=== PATIENT | female | born 1980 | race Caucasian/White ===

== ENCOUNTER 2017-12-03 11:51 | Inpatient (IN) | payer BC ==
--- OUTSIDE RECORDS SUMMARY | 2017-12-03 11:54 | XMS REPORT | Clinical Summary ---
:1980 Author Organization [facility] Address [address] [place] [address] Care Team Providers Name Role Phone Cherelle Morton MD Primary Care Provider Allergies No Known Allergies Current Medications Prescription Sig. Disp. Refills Start Date End Date Status mesalamine (PENTASA) Take 500 mg by Active 500 MG CR capsule mouth 4 (four) times a day. Take 2 capsules twice daily promethazine Take 25 mg by Active (PHENERGAN) 25 MG mouth every 6 tablet (six) hours as needed for nausea or vomiting. esomeprazole Take 40 mg by Active (NexIUM) 40 MG mouth daily capsule before breakfast. sertraline (ZOLOFT) Take 50 mg by Active 50 MG tablet mouth daily. ranitidine (ZANTAC) Take 150 mg by Active 150 MG tablet mouth as needed for heartburn. acetaminophen Take 325 mg by Active (TYLENOL) 325 MG mouth as tablet needed for fever. promethazine TAKE 1 30 tablet 0 10/23/2017 Active (PHENERGAN) 25 MG TABLET(25 MG) tabletIndications: BY MOUTH EVERY Nausea and vomiting, 6 HOURS intractability of NEEDED FOR vomiting not NAUSEA OR specified, VOMITING unspecified vomiting type sodium,potassium,mag Dispense 1 354 mL 0 06/29/2017 Discontinued sulfates (SUPREP kit. Take as 8 BOWEL PREP KIT) directed. 17.5-3.13-1.6 gram recon soln promethazine Take 1 tablet 30 tablet 0 07/13/2017 Discontinued (PHENERGAN) 25 MG (25 mg total) 8 tabletIndications: by mouth every Nausea and vomiting, 6 (six) hours intractability of as needed for vomiting not nausea or specified, vomiting for unspecified vomiting up to 30 days. type predniSONE Take 1 tablet 60 tablet 1 08/14/2017 (DELTASONE) 20 mg (20 mg total) 8 tabletIndications: by mouth 2 Crohn's disease of (two) times a colon with day for 30 complication, Nausea days. and vomiting, intractability of vomiting not specified, unspecified vomiting type Active Problems Not on file Encounters Date Type Specialty Care Team Description 12/02/2017 Telephone Gastroenterology Valeria Beard, MECHANICAL DESIGN ENGINEER [employer] 11/10/2017 Telephone Gastroenterology Maria Elena Gamez MD 10/26/2017 Telephone Gastroenterology Valeria Beard, MECHANICAL DESIGN [employer] 10/22/2017 Refill Gastroenterology Maria Elena Gamez, Nausea and vomiting, intractability of vomiting not specified, unspecified vomiting type 09/22/2017 Telephone Gastroenterology Valeria Beard, MECHANICAL DESIGN [employer] 09/18/2017 Telephone Gastroenterology Valeria Beard, MECHANICAL DESIGN [employer] 09/17/2017 Telephone Gastroenterology Mustapha Bearda, MECHANICAL DESIGN ENG[employer] 09/15/2017 Telephone Gastroenterology Mustapha Bearda, MECHANICAL DESIGN [employer] 09/09/2017 Telephone Gastroenterology Mustapha Bearda, MECHANICAL DESIGN [employer] 09/07/2017 Telephone Gastroenterology Mustapha Bearda, MECHANICAL DESIGN [employer] 08/24/2017 Telephone Gastroenterology Halle Beardnda, MECHANICAL DESIGN ENG[employer] 08/14/2017 Telephone Gastroenterology Halle Beardnda, MECHANICAL DESIGN ENG[employer] 08/13/2017 Telephone Gastroenterology Lucy Elizalde, Crohn's disease of colon with complication (Primary Dx); RN Nausea and vomiting, intractability of vomiting not specified, unspecified vomiting type 08/11/2017 Telephone Gastroenterology Maria Elena Gamez MD 07/28/2017 Telephone Gastroenterology Mustapha Bearda, MECHANICAL DESIGN [employer] 07/20/2017 Telephone Gastroenterology Mustapha Bearda, MECHANICAL DESIGN [employer] 07/14/2017 Telephone Gastroenterology Mustapha Bearda, MECHANICAL DESIGN [employer] 07/13/2017 Orders Only Gastroenterology Marcie Mendenhall, Nausea and vomiting, DIEGO intractability of vomiting not specified, unspecified vomiting type (Primary Dx) 07/09/2017 Telephone Maria Elena Rosario MD 07/07/2017 Telephone GastroenterMaria Elena Soriano, Hypercalcemia ( Primary Dx); Crohn's disease of small intestine without complication 07/07/2017 Documentation Maria Elena Rosario, Outside GI records 07/03/2017 Telephone Maria Elena Rosario MD 07/01/2017 Lab Lab Maria Elena Gamez MD 07/01/2017 Documentation Maria Elena Rosario, EGD; Colonoscopy 06/30/2017 Telephone Maria Elena Rosario MD 06/29/2017 Office Visit Maria Elena Rosario, Diarrhea, unspecified type (Primary Dx); Right lower quadrant abdominal pain; Nausea and vomiting, intractability of vomiting not specified, unspecified vomiting type 06/29/2017 Orders Only Gastroenterology Marcie Mendenhall MA 06/29/2017 Telephone Gastroenterology Marcie Mendenhall MA after 12/02/2016 Family History Medical History Relation Name Comments Crohn's disease Maternal Aunt Breast cancer Mother Ulcerative colitis Mother Ulcerative colitis Sister Relation Name Status Comments Father bladder cancer Maternal Aunt Mother Sister Social History Tobacco Use Types Packs/Day Years Used Date Never Smoker Smokeless Tobacco: Never Used Alcohol Use Drinks/Week oz/Week Comments No Sex Assigned at Date Recorded Not on file Last Filed Vital Signs Vital Sign Reading Time Taken Blood Pressure 129/82 06/29/2017 1:45 PM DRAWING OPERATOR Pulse 62 06/29/2017 1:45 PM DRAWING OPERATOR Temperature 37.1 C (98.8 F) 06/29/2017 1:45 PM DRAWING OPERATOR Respiratory Rate - - Oxygen Saturation - - Inhaled Oxygen Concentration - - Weight 86.5 kg (190 lb 9.6 oz) 06/29/2017 1:45 PM DRAWING OPERATOR Height 160 cm (5' 3") 06/29/2017 1:45 PM DRAWING OPERATOR Body Mass Index 33.76 06/29/2017 1:45 PM DRAWING OPERATOR Plan of Treatment Date Type Specialty Care Team Description 12/16/2017 Office Visit Maria Elena Rosario MD [address] [facility] [address] [place] [address] Health Maintenance Due Date Last Done Comments CERVICAL CANCER SCREENING 08/28/1999 INFLUENZA VACCINE 12/02/2017 Procedures Procedure Name Priority Date/Time Associated Diagnosis Comments URINALYSIS, COMPLETE, Routine 09/07/2017 2:52 Crohn's disease of Results for this WITH REFLEX TO PM CDT colon with procedure are in CULTURE complication the results Nausea and vomiting, section. intractability of vomiting not specified, unspecified vomiting type C-REACTIVE PROTEIN Routine 09/07/2017 2:52 Crohn's disease of Results for this PM CDT colon with procedure are in complication the results Nausea and vomiting, section. intractability of vomiting not specified, unspecified vomiting type SEDIMENTATION RATE Routine 09/07/2017 2:52 Crohn's disease of Results for this PM CDT colon with procedure are in complication the results Nausea and vomiting, section. intractability of vomiting not specified, unspecified vomiting type COMPREHENSIVE Routine 09/07/2017 2:52 Crohn's disease of Results for this METABOLIC PANEL PM CDT colon with procedure are in complication the results Nausea and vomiting, section. intractability of vomiting not specified, unspecified vomiting type CBC WITH PLATELET AND Routine 09/07/2017 2:52 Crohn's disease of Results for this DIFFERENTIAL PM CDT colon with procedure are in complication the results Nausea and vomiting, section. intractability of vomiting not specified, unspecified vomiting type REFLEXIVE URINE Routine 09/07/2017 2:52 Results for this CULTURE PM CDT procedure are in the results section. PARATHYROID HORMONE Routine 07/10/2017 1:59 Hypercalcemia Results for this PM DRAWING OPERATOR Crohn's disease of procedure are in small intestine the results without complication section. IONIZED CALCIUM Routine 07/10/2017 1:59 Hypercalcemia Results for this PM DRAWING OPERATOR Crohn's disease of procedure are in small intestine the results without complication section. CALCIUM LEVEL Routine 07/10/2017 1:59 Hypercalcemia Results for this PM DRAWING OPERATOR Crohn's disease of procedure are in small intestine the results without complication section. TB GOLD QUANTIFERON Routine 07/10/2017 1:59 Hypercalcemia Results for this PM DRAWING OPERATOR Crohn's disease of procedure are in small intestine the results without complication section. SURGICAL PATHOLOGY Routine 07/01/2017 3:43 Results for this REQUEST PM DRAWING OPERATOR procedure are in the results section. after 12/02/2016 Results URINALYSIS, COMPLETE, WITH REFLEX TO CULTURE (09/07/2017 2:52 PM) Color, UA YELLOW YELLOW [facility] Appearance CLEAR CLEAR [facility] Specific gravity, urine 1.018 1.001 - 1.035 [facility] pH, urine 7.0 5.0 - 8.0 [facility] Glucose, urine NEGATIVE NEGATIVE [facility] Bilirubin, UA NEGATIVE NEGATIVE [facility] Ketones, UA NEGATIVE NEGATIVE [facility] Occult blood, urine 1+ (A) NEGATIVE [facility] Protein, UA NEGATIVE NEGATIVE [facility] Nitrite, UA NEGATIVE NEGATIVE [facility] Leukocyte esterase, UA NEGATIVE NEGATIVE [facility] WBC, UA 0-5 < OR=5 /HPF [facility] RBC, UA 0-2 < OR=2 /HPF [facility] Squamous epithelial cells, UA 10-20 (A) < OR=5 /HPF [facility] Bacteria, UA FEW (A) NONE SEEN /HPF [facility] Hyaline casts, UA NONE SEEN NONE SEEN /LPF [facility] Narrative Performed At FASTING:NO [facility] FASTING: NO Resulting Agency Comment Performing Organization Information: Site ID: [facility] Name: [facility] Address: [address] [place] [phone] Director: Sofia Woodard Performing Organization Address [facility] Phone Number [facility] [address] [address] Reflexive urine culture (09/07/2017 2:52 PM) Reflex NO CULTURE INDICATED [facility] Narrative Performed At FASTING:NO [facility] FASTING: NO Resulting Agency Comment Performing Organization Information: Site ID: [facility] Name: [facility] Address: [address] [place] [phone] Director: Sofia Woodard Performing Organization Address City/[facility] [place] [address] Sedimentation rate (09/07/2017 2:52 PM) Sedimentation rate 2 < OR=20 mm/h [facility] Specimen Blood Narrative Performed At FASTING:NO [facility] FASTING: NO Resulting Agency Comment Performing Organization Information: Site ID: [facility] Name: [facility] Address: [address] [place] [phone] Director: Sofia Woodard Performing Organization Address [facility]/Zipcode Phone Number [facility] [address] [phone] CBC with platelet and differential (09/07/2017 2:52 PM) WBC 5.6 3.8 - 10.8 Thousand/uL [facility] RBC 4.80 3.80 - 5.10 Million/uL [facility] HGB 12.3 11.7 - 15.5 g/dL [facility] HCT 38.8 35.0 - 45.0 % [facility] MCV 80.8 80.0 - 100.0 fL [facility] MCH 25.6 (L) 27.0 - 33.0 pg [facility] MCHC 31.7 (L) 32.0 - 36.0 g/dL [facility] RDW 17.7 (H) 11.0 - 15.0 % [facility] Platelet count 363 140 - 400 Thousand/uL [facility] MPV 10.5 7.5 - 12.5 fL [facility] Neutrophils, absolute 4,290 1,500 - 7,800 cells/uL [facility] Lymphocytes, absolute 1,114 850 - 3,900 cells/uL [facility] Monocytes, absolute 162 (L) 200 - 950 cells/uL [facility] Eosinophils, absolute 11 (L) 15 - 500 cells/uL [facility] Basophils, absolute 22 0 - 200 cells/uL [facility] Neutrophils 76.6 % [facility] Lymphocytes 19.9 % [facility] Monocytes 2.9 % [facility] Eosinophils 0.2 % [facility] Basophils + RC 0.4 % [facility] Specimen Blood Narrative Performed At FASTING:NO [facility] FASTING: NO Resulting Agency Comment Performing Organization Information: Site ID: [id number] Name: [facility] Address: [address] [place] [phone] Director: Sofia Woodard Performing Organization Address City/State/Zipcode Phone Number [facility] [address] [address] C-reactive protein (09/07/2017 2:52 PM) CRP 6.5 <8.0 mg/L [facility] Specimen Blood Narrative Performed At FASTING:NO [facility] FASTING: NO Resulting Agency Comment Performing Organization Information: Site ID: [id number] Name: [facility] Address: [address] [place] [phone] Director: Sofia Woodard Performing Organization Address City/[facility]/Zipcode Phone Number [facility] [address] [address] Comprehensive metabolic panel (09/07/2017 2:52 PM) Glucose 124 65 - 139 mg/dL [facility] [employer] Comment: [facility] Non-fasting reference interval BUN, whole blood 9 7 - 25 mg/dL [facility] Creatinine 0.77 0.50 - 1.10 mg/dL [facility] EGFR Non-Afr. Malawian 97 > OR=60 [facility] mL/min/1.73m2 [facility] EGFR 113 > OR=60 [facility] mL/min/1.73m2 [facility] BUN/creatinine ratio NOT APPLICABLE 6 - 22 (calc) [facility] Sodium 136 135 - 146 mmol/L [facility] Potassium 4.5 3.5 - 5.3 mmol/L [facility] Chloride 108 98 - 110 mmol/L [facility] CO2 24 20 - 31 mmol/L [facility] Calcium 10.2 8.6 - 10.2 mg/dL [facility] Protein 6.9 6.1 - 8.1 g/dL [facility] Albumin, S 4.1 3.6 - 5.1 g/dL [facility] Globulin, total 2.8 1.9 - 3.7 g/dL [facility] (calc) [facility] Albumin/globulin ratio 1.5 1.0 - 2.5 (calc) [facility] Total bilirubin 0.6 0.2 - 1.2 mg/dL [facility] Alkaline phosphatase 47 33 - 115 U/L [facility] AST 13 10 - 30 U/L [facility] ALT 16 6 - 29 U/L [facility] Specimen Blood Narrative Performed At FASTING:NO [facility] FASTING: NO Resulting Agency Comment Performing Organization Information: Site ID: [id number] Name: [facility] Address: [address] [place] [phone] Director: Sofia Woodard Performing Organization Address City/[facility]/Zipcode Phone Number [facility] [address] [address] TB GOLD Quantiferon (07/10/2017 1:59 PM) Quantiferon TB gold NEGATIVE NEGATIVE [facility] Comment: [facility] Negative test result. M. tuberculosis complex infection unlikely. Quantiferon NIL value 0.02 IU/mL [facility] Quantiferon mitogen NIL 7.70 IU/mL [facility] value [facility] Quantiferon TB NIL value 0.00 IU/mL [facility] Comment: [facility] The Nil tube value is used to determine if the patient has a preexisting immune response which could cause a false-positive reading on the test. In order for a test to be valid, the Nil tube must have a value of less than or equal to 8.0 IU/mL. The mitogen control tube is used to assure the patient has a healthy immune status and also serves as a control for correct blood handling and incubation. It is used to detect false-negative readings. The mitogen tube must have a gamma interferon value of greater than or equal to 0.5 IU/mL higher than the value of the Nil tube. The TB antigen tube is coated with the M. tuberculosis specific antigens. For a test to be considered positive, the TB antigen tube value minus the Nil tube value must be greater than or equal to 0.35 IU/mL. For additional information, please refer to http://education.[employer]/faq/QFT (This link is being provided for informational/ educational purposes only.) Specimen Blood Narrative Performed At FASTING:NO [facility] FASTING: NO Resulting Agency Comment Performing Organization Information: Site ID: [id number] Name: [facility] Address: [address] [place] [phone] Director: Sofia Woodard MD Performing Organization Address City/State/Zipcode [place] [address] Parathyroid hormone (07/10/2017 1:59 PM) PTH 231 (H) 14 - 64 pg/mL [facility] [employer]ARRY Comment: II Interpretive GuideIntact PTH Calcium ------- Normal ParathyroidNormal Normal HypoparathyroidismLow or Low NormalLow Hyperparathyroidism PrimaryNormal or High High SecondaryHigh Normal or Low Tertiary High High Non-Parathyroid HypercalcemiaLow or Low NormalHigh Specimen Blood Narrative Performed At FASTING:NO [facility] FASTING: NO Resulting Agency Comment Performing Organization Information: Site ID: [id number]: [facility] Address: [address] [place] [phone] Director: Dr. Melo Carl Performing Organization Address City/[facility] Phone Number [facility] [address] Ionized calcium (07/10/2017 1:59 PM) Ionized calcium 5.6 4.8 - 5.6 mg/dL [facility] Specimen Blood Narrative Performed At FASTING:NO [facility] FASTING: NO Resulting Agency Comment Performing Organization Information: Site ID: [id number] Name: [facility] Address: [address] [place] [phone] Director: Dr. Melo Carl Performing Organization Address [facility] Phone Number [facility] [address] Calcium level (07/10/2017 1:59 PM) Calcium 10.0 8.6 - 10.2 mg/dL [facility] Specimen Blood Narrative Performed At FASTING:NO [facility] FASTING: NO Resulting Agency Comment Performing Organization Information: Site ID: [id number] Name: [facility] Address: [address] [place] [phone] Director: Sofia Woodard MD Performing Organization Address [facility] Phone Number [facility] [address] [address] Surgical pathology request (07/01/2017 3:43 PM) [facility] DEPARTMENT OF PATHOLOGY AND GENOMIC MEDICINE Surgical pathology report See link below for PDF [facility] DEPARTMENT OF Lab Report PATHOLOGY AND GENOMIC MEDICINE Result status This is Final Report to [facility] DEPARTMENT OF [id number] PATHOLOGY AND GENOMIC MEDICINE Performing Organization Address City/State/[facility] Center[facility] Phone Number [facility] DEPARTMENT OF PATHOLOGY AND [address] [place] [address] GENOMIC MEDICINE after 12/02/2016 Insurance Payer Benefit Plan / Group Subscriber ID Type Phone Address BCBS BCBS OUT OF STATE xxxxxxxxxxxx PPO Home: [address] [phone] [address]
--- OUTSIDE RECORDS SUMMARY | 2017-12-03 11:54 | XMS REPORT | Clinical Summary ---
:1980 Author Organization [facility] Address [address] [place] [address] Phone Care Team Providers Name Role Phone Unavailable Primary Care Provider Unavailable Allergies No Known Allergies Current Medications Prescription Sig. Disp. Refills Start Date End Date Status ustekinumab (STELARA) Inject 90 mg Active 90 mg/mL Syrg subcutaneously. sertraline (ZOLOFT) Take 50 mg by Active 50 MG tablet mouth daily. promethazine Take 25 mg by Active (PHENERGAN) 25 MG mouth every 6 tablet (six) hours as needed for Nausea. SUMAtriptan (IMITREX) Take 100 mg by Active 100 MG tablet mouth once as needed for Headaches. topiramate (TOPAMAX) Take 25 mg by Active 25 MG tablet mouth daily. ALPRAZolam (XANAX) Take 0.25 mg by Active 0.25 MG tablet mouth every night as needed for Anxiety. levonorgestrel 1 each by Active (MIRENA) 20 mcg/24 hr Intrauterine route (5 years) IUD once. ranitidine (ZANTAC) Take 150 mg by Active 150 MG tablet mouth as needed for Heartburn. predniSONE Take 20 mg by Active (DELTASONE) 20 MG mouth daily. tablet traMADol (ULTRAM) 50 Take 1 tablet (50 60 tablet 0 11/23/2017 12/03/2017 Active mg tablet mg total) by mouth every 6 (six) hours as needed for Pain for up to 10 days. Max Daily Amount: 200 mg Active Problems Problem Noted Date Primary hyperparathyroidism (HCC) 11/23/2017 Encounters Date Type Specialty Care Team Description 11/23/2017 Hospital Encounter Quentin Angulo MD 11/23/2017 Procedure Pass 11/23/2017 Surgery Quentin Angulo PARATHYROIDECTOMY MD [place] 11/20/2017 Anesthesia Event Salvador Marinelli MD 11/19/2017 Hospital Encounter Pre-Admission Testing after 12/02/2016 Social History Tobacco Use Types Packs/Day Years Used Date Never Smoker Smokeless Tobacco: Never Used Alcohol Use Drinks/Week oz/Week Comments No Sex Assigned at Date Recorded Not on file Last Filed Vital Signs Vital Sign Reading Time Taken Blood Pressure 117/67 11/23/2017 3:15 PM CDT Pulse 65 11/23/2017 3:15 PM CDT Temperature 36.4 C (97.5 F) 11/23/2017 3:15 PM CDT Respiratory Rate 18 11/23/2017 3:15 PM CDT Oxygen Saturation 100% 11/23/2017 3:15 PM CDT Inhaled Oxygen Concentration - - Weight 82.9 kg (182 lb 12.2 oz) 11/23/2017 7:00 AM CDT Height 160 cm (5' 3") 11/23/2017 7:00 AM CDT Body Mass Index 32.37 11/23/2017 7:00 AM CDT Plan of Treatment Not on file Procedures Procedure Name Priority Date/Time Associated Diagnosis Comments PARATHYROIDECTOMY 11/23/2017 10:36 AM CDT Hyperparathyroidism, primary (HCC) after 12/02/2016 Results PTH, intact (11/23/2017 11:47 AM)Only the most recent of2 resultswithin the time period is included. Component Value Ref Range PTH 17.2 8.5 - 72.5 pg/mL Specimen Performing Laboratory Blood [facility] [address] [id number] Tissue Exam (11/23/2017 11:04 AM) Component Value Ref Range Case Report Surgical Pathology Report Case: [id number] Authorizing Provider:Quentin Angulo, Collected: 11/23/2017 1104 MD Ordering Location: [facility] Received: 11/23/2017 1154 SERVICES Pathologist: Mario Alberto Gimenez MD Specimens: A) - Parathyroid, Left inferior parathyroid gland B) - Parathyroid, left superior parathyroid adenoma DIAGNOSIS A. PARATHYROID, LEFT INFERIOR, EXCISION (0.077 GRAMS): NORMOCELLULAR PARATHYROID TISSUE. B. PARATHYROID, LEFT SUPERIOR, EXCISION (1.26 GRAMS): HYPERCELLULAR PARATHYROID TISSUE. Signing Pathologist Direct Phone Line: [phone] CPT Code(s) 67498 X2 CLINICAL HISTORY Primary hyperparathyroidism SPECIMEN SOURCE A. Left inferior parathyroid gland; B. Left superior parathyroid adenoma GROSS DESCRIPTION Specimen A: Received fresh labeled "parathyroid", description "left inferior parathyroid gland" is a 0.077 gm, 0.7 x 0.5 x 0.2 cm pink-victor parathyroid gland. The specimen is entirely submitted in cassette A1. Specimen B: Received fresh labeled "parathorid", description "left superior parathyroid adenoma" is a 1.26 gm, 3.0 x 1.2 x 0.6 cm pink-victor parathyroid gland. The specimen is bisected and entirely submitted in cassette B1-B2. DB/pl MICROSCOPIC DESCRIPTION Performed Specimen Performing Laboratory Tissue - Parathyroid [address] [address] POC-Hemoglobin meter (11/23/2017 8:38 AM) Component Value Ref Range POC-Hemoglobin Meter 12.1Comment: TESTED AT [address] 12.0 - 15.0 g/ dL [facility] [address] Specimen Performing Laboratory Blood [address] [address] Glucose (11/23/2017 8:38 AM) Component Value Ref Range Glucose 77 70 - 105 mg/dL Specimen Performing Laboratory Blood [address] [address] Electrolytes (11/23/2017 8:38 AM) Component Value Ref Range Sodium 135 (L) 136 - 145 meq/L Potassium 4.9Comment: Specimen moderately hemolyzed 3.5 - 5.1 meq/L Chloride 108 (H) 98 - 107 meq/L CO2 21 (L) 22 - 29 meq/L Specimen Performing Laboratory Blood [address] [address] POCT , urine (11/23/2017 8:15 AM) Component Value Ref Range Test Urine, POC Negative Control line present?, POC Yes Background clear?, POC Yes UPT Cassette Lot #, POC [id number] UPT Cassette Expiration Date, POC 06/03/2019 Specimen Performing Laboratory Urine after 12/02/2016
--- NOTE | 2017-12-03 12:30 | RAD REPORT ---
EXAM DESCRIPTION: RAD - Chest Single View - 12/03/2017 12:24 pm CLINICAL HISTORY: CHEST PAIN Chest pain. COMPARISON: No comparisons FINDINGS: Portable technique limits examination quality. The lungs are grossly clear. The heart is normal in size. No displaced fractures. IMPRESSION: No acute intrathoracic process suspected.
[2017-12-03 12:34] LABS: Absolute Lymphocytes (CBC) 1.7 K/uL (0.7-4.9); Absolute Monocytes 0.5 K/uL (0.1-1.3); Absolute Neutrophil 7.5 K/uL (1.8-8.0); Basophils % 0.7 % (0-1.3); Eosinophils % 1.7 % (0-4.4); Hematocrit 43.5 % (36.0-45.0); Lymphocytes % 17.3 % (15.3-44.8); MCH 28.1 pg (27.0-35.0); MCV 83.5 fL (80-100); MPV 8.1 fL (7.6-11.3); Monocytes % 4.9 % (3.3-12.3); RBC Red Blood Cell Count 5.21 M/uL (3.86-4.86)
[2017-12-03] MEDS ORDERED: DIAZEPAM 10 MG/2 ML INJ SYRINGE ONE (12:44)
--- NOTE | 2017-12-03 12:45 | EKG ---
Test Date: 2017-12-03 Test Time: 12:23:10 Hot Billet Shear Operator: JESE MEASUREMENT RESULTS: Intervals: Rate: 63 WY: 122 QRSD: 88 QT: 406 QTc: 415 [place]: P: 41 WY: 122 QRS: 0 T: 52 INTERPRETIVE STATEMENTS: Normal sinus rhythm Normal ECG No previous ECG available for comparison Electronically Signed On 12-03-17 12:45:30 CDT by Haim Hendrix
[2017-12-03 12:57] LABS: Albumin 4.3 g/dL (3.4-5.0); Bilirubin Direct 0.2 mg/dL (0-0.2); Bilirubin Total 0.7 mg/dL (0.2-1.0); Magnesium 2.3 mg/dL (1.8-2.4); Phosphorus 2.5 mg/dL (2.5-4.9); Potassium 3.6 mmol/L (3.5-5.1); Protein, Total 8.5 g/dL (6.4-8.2); Thyroid Stimulating Hormone 2.98 uIU/mL (0.36-3.74)
[2017-12-03] MEDS ORDERED: FENTANYL CITR 100 MCG/2 ML ONE (13:53)
[2017-12-03] MEDS ORDERED: ONDANSETRON 4 MG/2 ML VIAL ONE (13:53)
[2017-12-03 14:16] LABS: Urine Blood 1+ (NEG); Urine Glucose NEGATIVE (NEG); Urine Protein TRACE (NEG)
--- NOTE | 2017-12-03 14:17 | RAD REPORT ---
EXAM DESCRIPTION: CTAbdomen Pelvis W Contrast - 12/03/2017 2:03 pm CLINICAL HISTORY: Abdominal pain. ABD PAIN COMPARISON: [facility] Protocol dated 07/19/2017 TECHNIQUE: Biphasic CT imaging of the abdomen and pelvis was performed with 100 ml non-ionic IV cont rast. All CT scans are performed using dose optimization technique as appropriate and may include automated exposure control or mA/KV adjustment according to patient size. FINDINGS: The lung bases are clear. The liver, spleen, pancreas, adrenal glands and kidneys are within normal limits. Cholecystectomy. No bowel obstruction, free air, free fluid or abscess. The terminal ileum appears mildly dilated. The appendix is normal. No evidence of significant lymphadenopathy. No suspicious bony findings. IUD is present within the uterus. IMPRESSION: No acute intra-abdominal or pelvic finding. Mild dilatation of the terminal ileum is seen.
[2017-12-03] MEDS ORDERED: NA CHLORIDE 0.9% 1,000 ML ONE (14:33)
[2017-12-03] MEDS ORDERED: PROMETHAZINE 25 MG/ML VIAL ONE (14:44)
[2017-12-03] MEDS ORDERED: DIPHENHYDRAMINE 50 MG/ML VIAL ONE (16:10)
[2017-12-03] MEDS ORDERED: NA CHLORIDE 0.9% 500 ML ONE (16:11)
[2017-12-03] MEDS ORDERED: LIDOCAINE VISCOUS 2% SOLN 15 ML UDC ONE (17:26)
[2017-12-03] MEDS ORDERED: MAGNES/ALUMIN/SIMET 30ML UCUP ONE (17:27)
[2017-12-03 19:21] LABS: Potassium 3.7 mmol/L (3.5-5.1)
--- NOTE | 2017-12-03 19:44 | ER ---
Nurse's Notes [facility] Name: Vashti Colin Age: 37 yrs Sex: Female : 1980 Arrival Date: 12/03/2017 Time: 11:54 Bed 17 Private MD: Cherelle Morton K Diagnosis: Intractable nausea, vomiting Presentation: 12/03 11:56 Presenting complaint: Patient states: diffuse abd pain and vomiting. Sent by Dr melissa Morton. Pt stated that she had a parathyroidectomy on 11/23/17. Transition of care: patient was not received from another setting of care. Onset of symptoms was December 02, 2017. Care prior to arrival: None. 11:56 Method Of Arrival: Ambulatory sv 11:56 Acuity: MELANI 3 sv 21:50 Risk Assessment: Do you want to hurt yourself or someone else? Patient reports no jl3 desire to harm self or others. Initial Sepsis Screen: Does the patient meet any 2 criteria? No. Patient's initial sepsis screen is negative. Does the patient have a suspected source of infection? Yes: Dysuria/Frequency/Urgency/UTI. 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 - Social history:: Smoking status: Patient/guardian denies using tobacco. - Ebola Screening: : No symptoms or risks identified at this time. Screenin:20 Abuse screen: Denies threats or abuse. Denies injuries from another. Nutritional aj1 screening: No deficits noted. Tuberculosis screening: No symptoms or risk factors identified. 21:51 Fall Risk jl3 Assessment: 12:20 General: Appears in no apparent distress. uncomfortable, Behavior is appropriate for aj1 age, restless. Pain: Complains of pain in abdomen diffusely Pain does not radiate. Pain currently is 10 out of 10 on a pain scale. Quality of pain is described as burning, sharp, Pain began 1 day ago. Neuro: Level of Consciousness is awake, alert, obeys commands. Cardiovascular: Patient's skin is warm and dry. Rhythm is sinus rhythm. Respiratory: Airway is patent Respiratory effort is even, unlabored, Respiratory pattern is regular, symmetrical. GI: Abdomen is non-distended, Bowel sounds present X 4 quads. Abd is soft X 4 quads Abdomen is tender to palpation X 4 quads. Reports diarrhea, nausea, vomiting. : No signs and/or symptoms were reported regarding the genitourinary system. EENT: No signs and/or symptoms were reported regarding the EENT system. Derm: No signs and/or symptoms reported regarding the dermatologic system. Skin is pink, warm \T\ dry. normal. Musculoskeletal: No signs and/or symptoms reported regarding the musculoskeletal system. Circulation, motion, and sensation intact. 13:39 Reassessment: Patient appears in no apparent distress at this time. No changes from [facility] previously documented assessment. Patient and/or family updated on plan of care and expected duration. Pain level reassessed. Patient is alert, oriented x 3, equal unlabored respirations, skin warm/dry/pink. 13:39 Reassessment: Patient states that her pain and nausea have not been relieved at all. [facility] Notified Mely Alvarado NP. Order received . 13:52 Reassessment: Pt to CT VIA wheelchair. 14:45 Reassessment: Patient states that her pain has improved, but her nausea is about the aj same. Notified Mely Alvarado NP. Order received. 14:54 Reassessment: Patient appears in no apparent distress at this time. No changes from [facility] previously documented assessment. Patient and/or family updated on plan of care and expected duration. Pain level reassessed. Patient is alert, oriented x 3, equal unlabored respirations, skin warm/dry/pink. 16:00 Reassessment: Patient states that she is still feeling nauseated. Mely Alvarado NP at [facility] bedside. Order received. 16:00 Reassessment: Patient appears in no apparent distress at this time. No changes from [facility] previously documented assessment. Patient and/or family updated on plan of care and expected duration. Pain level reassessed. Patient is alert, oriented x 3, equal unlabored respirations, skin warm/dry/pink. 17:22 Reassessment: Patient states that she is having some burning in her stomach and she aj1 would like something for stomach acid. Notified Mely Alvarado Np. Order received. 18:49 Reassessment: Patient appears in no apparent distress at this time. No changes from aj1 previously documented assessment. Patient and/or family updated on plan of care and expected duration. Pain level reassessed. Patient is alert, oriented x 3, equal unlabored respirations, skin warm/dry/pink. Patient states that she is still feeling nauseated. Mely Alvarado NP aware. 19:05 Reassessment: Report received from VANITA Hoffmann. bs1 19:05 General: Appears in no apparent distress. uncomfortable, Behavior is calm, appropriate bs1 for age. Pain: Complains of pain in abdomen and abdomen diffusely Pain does not radiate. Neuro: Level of Consciousness is awake, alert, obeys commands, Oriented to person, place, time, situation, Appropriate for age. Cardiovascular: Denies chest pain, shortness of breath, Heart tones S1 S2 present Capillary refill < 3 seconds Patient's skin is warm and dry. Respiratory: Airway is patent Trachea midline Respiratory effort is even, unlabored, Respiratory pattern is regular, symmetrical, Breath sounds are clear bilaterally. GI: Abdomen is non-distended, Bowel sounds present X 4 quads. Abd is soft X 4 quads Abdomen is tender to palpation X 4 quads. Reports diarrhea, nausea. : No signs and/or symptoms were reported regarding the genitourinary system. EENT: No signs and/or symptoms were reported regarding the EENT system. Derm: Skin is intact, Skin is pink, warm \T\ dry. normal. Musculoskeletal: Circulation, motion, and sensation intact. Capillary refill < 3 seconds. 20:00 Reassessment: Pending admission to hospital. No further needs. bs1 20:15 Reassessment: Report given to VANITA Cervantes. bs1 Vital Signs: 11:58 BP 134 / 94; Pulse 74; Resp 24; Temp 97.7; Pulse Ox 99% ; Weight 87.54 kg; Height 5 ft. sv 3 in. (160.02 cm); Pain 9/10; 13:35 BP 132 / 89; Pulse 65; Resp 18; Pulse Ox 99% ; aj1 14:54 BP 133 / 81; Pulse 61; Resp 20; Pulse Ox 99% on R/A; aj1 16:15 BP 132 / 75; Pulse 62; Resp 18; Pulse Ox 99% ; aj1 17:39 BP 122 / 83; Pulse 71; Resp 18; Pulse Ox 97% ; aj1 18:50 BP 126 / 80; Pulse 78; Resp 18; Pulse Ox 99% ; aj1 19:30 BP 128 / 79; Pulse 72; Resp 16; Pulse Ox 100% on R/A; bs1 20:00 BP 128 / 78; Pulse 75; Resp 16; Pulse Ox 99% on R/A; bs1 11:58 Body Mass Index 34.19 (87.54 kg, 160.02 cm) sv ED Course: 11:54 Patient arrived in ED. sb2 11:54 Cherelle Morton MD is Private Physician. sb2 11:57 Triage completed. sv 11:58 Arm band placed on right wrist. Patient placed in an exam room, on a stretcher. sv 12:05 Aubree Alvarado FNP-C [facility]. snw 12:05 Akhil Cornejo MD is Attending Physician. snw 12:10 Urine collected: clean catch specimen, clear, roberto colored. jp3 12:20 Tahira Castillo, RN is Primary Nurse. aj1 12:20 Patient has correct armband on for positive identification. Placed in gown. Bed in low aj1 position. Call light in reach. desilverizer on. Pulse ox on. NIBP on. Warm blanket given. 12:20 No provider procedures requiring assistance completed. Initial lab(s) drawn, by ishmael coffey sent to lab. Inserted saline lock: 14 gauge 20 gauge in right antecubital area, using aseptic technique. Blood collected. 12:25 XRAY Chest (1 view) In Process Unspecified. EDMS 12:31 EKG done, by production technologist. reviewed by Aubree MAST. at1 12:42 Oral contrast given. vr 14:03 CT Abd/Pelvis - W/Contrast In Process Unspecified. EDMS 14:10 CT completed. Patient tolerated procedure well. Patient moved to CT via wheelchair. sj Patient moved back from CT. 19:00 Repeat lab(s) drawn. by ED staff, sent to lab. flushed IV, discarded 4ml of blood jp3 before drawing blood sample for BMP. 19:43 Wilfrid Garcia MD is Hospitalizing Provider. snw 21:51 Patient admitted, IV remains in place. jl3 Administered Medications: 12:45 Drug: Valium 2 mg Route: IVP; Site: right antecubital; aj1 13:55 Follow up: Response: No adverse reaction aj1 13:50 Drug: fentaNYL (PF) 25 mcg Route: IVP; Site: right antecubital; aj1 14:52 Follow up: Response: No adverse reaction; Pain is decreased aj1 13:50 Drug: Zofran 4 mg Route: IVP; Site: right antecubital; aj1 14:52 Follow up: Response: No adverse reaction; Nausea unchanged aj1 14:49 Drug: NS 0.9% 1000 ml Route: IV; Rate: 1000 ml; Site: right antecubital; aj1 16:16 Follow up: IV Status: Completed infusion; IV Intake: 1000ml aj1 14:49 Drug: Phenergan 25 mg Route: IVP; Site: right antecubital; aj1 16:16 Follow up: Response: No adverse reaction aj1 16:17 Drug: NS 0.9% 500 ml Route: IV; Rate: bolus; Site: right antecubital; aj1 20:13 Follow up: IV Status: Completed infusion bs1 16:17 Drug: Benadryl 25 mg Route: IVP; Site: right antecubital; aj1 17:37 Follow up: Response: No adverse reaction aj1 21:46 Follow up: Response: No adverse reaction jl3 17:37 Drug: GI Cocktail without - (Maalox Suspension 30 ml, Lidocaine Liquid 2 % 15 aj1 ml) Route: PO; 18:48 Follow up: Response: No adverse reaction aj1 21:46 Follow up: Response: No adverse reaction jl3 Intake: 16:16 IV: 1000ml; Total: 1000ml. aj1 Outcome: 19:44 Decision to Hospitalize by Provider. snw 21:46 Admitted to Med/surg accompanied by tech, via wheelchair, Report called to sammy Baker RN 21:46 Condition: stable 21:52 Patient left the ED. [email or web address] Signatures: Dispatcher [employer] EDMS Tahira Castillo RN RN aj1 Анна, Olivia, RN RN sv Aubree Alvarado, SEMICONDUCTOR WAFER INSPECTOR-C SEMICONDUCTOR WAFER INSPECTOR-Csnw Gianna Moreno Shelby, RN RN Malu Enriquez Amanda, field research assistant EKG Tat1 Billy Joyce, LIVESTOCK RANCH HAND LIVESTOCK RANCH HAND jl3 Lia Adair, VANITA RN bs1 Apryl Bojorquez sb2 David Choe jp3
--- NOTE | 2017-12-03 19:45 | EDPHYS ---
Physician Documentation [facility] Name: Vashti Colin Age: 37 yrs Sex: Female : 1980 Arrival Date: 12/03/2017 Time: 11:54 Bed 17 Private MD: Cherelle Morton K ED Physician Akhil Corenjo HPI: 12/03 17:01 This 37 yrs old Female presents to ER via Ambulatory with complaints of snw Nausea/Vomiting/Diarrhea. 17:01 The patient presents to the emergency department with nausea, vomiting, diarrhea. snw Onset: The symptoms/episode began/occurred gradually. Possible causes: recent parathyroidectomy. The symptoms are aggravated by nothing. Severity of symptoms: At their worst the symptoms were moderate severe. The patient has experienced similar episodes in the past. The patient has been recently seen by a physician: the patient's primary care provider, Dr. Morton. no dino. 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 - Social history:: Smoking status: Patient/guardian denies using tobacco. - Ebola Screening: : No symptoms or risks identified at this time. ROS: 16:10 Constitutional: Negative for fever, chills, and weight loss, Eyes: Negative for injury, snw pain, redness, and discharge, ENT: Negative for injury, pain, and discharge, Neck: Negative for injury, pain, and swelling, Cardiovascular: Negative for chest pain, palpitations, and edema, Respiratory: Negative for shortness of breath, cough, wheezing, and pleuritic chest pain, Back: Negative for injury and pain, : Negative for injury, bleeding, discharge, and swelling, MS/Extremity: Negative for injury and deformity, Skin: Negative for injury, rash, and discoloration, Neuro: Negative for headache, weakness, numbness, tingling, and seizure. 16:10 Abdomen/GI: Positive for abdominal pain, nausea, vomiting, and diarrhea. Exam: 16:09 Constitutional: This is a well developed, well nourished patient who is awake, alert, snw and in no acute distress. Head/Face: Normocephalic, atraumatic. Eyes: Pupils equal round and reactive to light, extra-ocular motions intact. Lids and lashes normal. Conjunctiva and sclera are non-icteric and not injected. Cornea within normal limits. Periorbital areas with no swelling, redness, or edema. ENT: Nares patent. No nasal discharge, no septal abnormalities noted. Tympanic membranes are normal and external auditory canals are clear. Oropharynx with no redness, swelling, or masses, exudates, or evidence of obstruction, uvula midline. Mucous membranes moist. Neck: Trachea midline, no thyromegaly or masses palpated, and no cervical lymphadenopathy. Supple, full range of motion without nuchal rigidity, or vertebral point tenderness. No Meningismus. recent incision that is well healed and nontender Chest/axilla: Normal chest wall appearance and motion. Nontender with no deformity. No lesions are appreciated. Cardiovascular: Regular rate and rhythm with a normal S1 and S2. No gallops, murmurs, or rubs. Normal PMI, no JVD. No pulse deficits. Respiratory: Lungs have equal breath sounds bilaterally, clear to auscultation and percussion. No rales, rhonchi or wheezes noted. No increased work of breathing, no retractions or nasal flaring. Back: No spinal tenderness. No costovertebral tenderness. Full range of motion. Skin: Warm, dry with normal turgor. Normal color with no rashes, no lesions, and no evidence of cellulitis. MS/ Extremity: Pulses equal, no cyanosis. Neurovascular intact. Full, normal range of motion. Neuro: Awake and alert, GCS 15, oriented to person, place, time, and situation. Cranial nerves II-XII grossly intact. Motor strength 5/5 in all extremities. Sensory grossly intact. Cerebellar exam normal. Normal gait. 16:09 Abdomen/GI: Inspection: abdomen appears normal, Bowel sounds: normal, Palpation: mild abdominal tenderness, in all quadrants. Vital Signs: 11:58 BP 134 / 94; Pulse 74; Resp 24; Temp 97.7; Pulse Ox 99% ; Weight 87.54 kg; Height 5 ft. sv 3 in. (160.02 cm); Pain 9/10; 13:35 BP 132 / 89; Pulse 65; Resp 18; Pulse Ox 99% ; aj1 14:54 BP 133 / 81; Pulse 61; Resp 20; Pulse Ox 99% on R/A; aj1 16:15 BP 132 / 75; Pulse 62; Resp 18; Pulse Ox 99% ; aj1 17:39 BP 122 / 83; Pulse 71; Resp 18; Pulse Ox 97% ; aj1 18:50 BP 126 / 80; Pulse 78; Resp 18; Pulse Ox 99% ; aj1 19:30 BP 128 / 79; Pulse 72; Resp 16; Pulse Ox 100% on R/A; bs1 20:00 BP 128 / 78; Pulse 75; Resp 16; Pulse Ox 99% on R/A; bs1 11:58 Body Mass Index 34.19 (87.54 kg, 160.02 cm) sv MDM: 12:05 Patient medically screened. snw 19:44 Data reviewed: vital signs, nurses notes. Data interpreted: Pulse oximetry: on room air snw is 99 %. Interpretation: normal. Counseling: I had a detailed discussion with the patient and/or guardian regarding: the historical points, exam findings, and any diagnostic results supporting the discharge/admit diagnosis, the presence of at least one elevated blood pressure reading (>120/80) during this emergency department visit, lab results, radiology results, the need for further work-up and treatment in the hospital. Physician consultation: Wilfrid Garcia MD was called at 19:44, was contacted at 19:44, regarding admission, to the telemetry unit. 12/03 12:08 Order name: Basic Metabolic Panel; Complete Time: 12:58 snw 12/03 12:08 Order name: CBC with Diff; Complete Time: 12:37 snw 12/03 12:08 Order name: Ckmb; Complete Time: 12:58 snw 12/03 12:08 Order name: CPK; Complete Time: 12:58 snw 12/03 12:08 Order name: LFT's; Complete Time: 12:58 snw 12/03 12:08 Order name: Magnesium; Complete Time: 12:58 snw 12/03 12:08 Order name: XRAY Chest (1 view); Complete Time: 12:35 snw 12/03 12:08 Order name: Phosphorus; Complete Time: 12:58 snw 12/03 12:08 Order name: Pth,Intact; Complete Time: 13:14 snw 12/03 12:08 Order name: TSH; Complete Time: 12:58 snw 12/03 12:08 Order name: CT Abd/Pelvis - W/Contrast; Complete Time: 14:17 snw 12/03 12:22 Order name: Urine Dipstick--Ancillary (enter results); Complete Time: 14:16 eb 12/03 12:22 Order name: Urine --Ancillary (enter results); Complete Time: 14:16 eb 12/03 18:38 Order name: Chem 7; Complete Time: 19:32 snw 12/03 12:08 Order name: EKG; Complete Time: 12:09 snw 12/03 12:08 Order name: Cardiac monitoring; Complete Time: 12:24 snw 12/03 12:08 Order name: EKG - Nurse/Tech; Complete Time: 12:24 snw 12/03 12:08 Order name: IV Saline Lock; Complete Time: 12:24 snw 12/03 12:08 Order name: Labs collected and sent; Complete Time: 12:24 snw 12/03 12:08 Order name: O2 Per Protocol; Complete Time: 12:24 snw 12/03 12:08 Order name: O2 Sat Monitoring; Complete Time: 12:24 snw 12/03 12:08 Order name: Urine Dipstick-Ancillary (obtain specimen); Complete Time: 12:24 snw 12/03 12:08 Order name: Urine Test (obtain specimen); Complete Time: 12:23 snw 12/03 15:52 Order name: PO challenge; Complete Time: 16:16 snw Administered Medications: 12:45 Drug: Valium 2 mg Route: IVP; Site: right antecubital; aj1 13:55 Follow up: Response: No adverse reaction aj1 13:50 Drug: fentaNYL (PF) 25 mcg Route: IVP; Site: right antecubital; aj1 14:52 Follow up: Response: No adverse reaction; Pain is decreased aj1 13:50 Drug: Zofran 4 mg Route: IVP; Site: right antecubital; aj1 14:52 Follow up: Response: No adverse reaction; Nausea unchanged aj1 14:49 Drug: NS 0.9% 1000 ml Route: IV; Rate: 1000 ml; Site: right antecubital; aj1 16:16 Follow up: IV Status: Completed infusion; IV Intake: 1000ml aj1 14:49 Drug: Phenergan 25 mg Route: IVP; Site: right antecubital; aj1 16:16 Follow up: Response: No adverse reaction aj1 16:17 Drug: NS 0.9% 500 ml Route: IV; Rate: bolus; Site: right antecubital; aj1 20:13 Follow up: IV Status: Completed infusion bs1 16:17 Drug: Benadryl 25 mg Route: IVP; Site: right antecubital; aj1 17:37 Follow up: Response: No adverse reaction aj1 21:46 Follow up: Response: No adverse reaction jl3 17:37 Drug: GI Cocktail without - (Maalox Suspension 30 ml, Lidocaine Liquid 2 % 15 aj1 ml) Route: PO; 18:48 Follow up: Response: No adverse reaction aj1 21:46 Follow up: Response: No adverse reaction jl3 Disposition: 12/04 10:59 Co-signature as Attending Physician, Akhil Cornejo MD I agree with the assessment and kdr plan of care. Disposition: 12/03/17 19:44 Hospitalization ordered by Wilfrid Garcia for Observation. Preliminary diagnosis is Intractable nausea, vomiting. - Bed requested for Telemetry/MedSurg (observation). - Status is Observation. jl3 - Condition is Stable. - Problem is an acute exacerbation. - Symptoms are unchanged. UTI on Admission? Yes Critical care time excluding procedures: 12/03 20:09 Critical care time: Bedside Care: 10 minutes, Consultation: 15 minutes, Family snw Intervention: 10 minutes. Total time: 35 minutes Signatures: Dispatcher [employer] Tahira Shrestha RN RN aj1 Olivia Jj RN RN sv Rittger, Kevin, MD MD [facility] Aubree Alvarado, STAMP CLERK-C STAMP CLERK-Csnw Billy Joyce LVN STOCK PREPARER jl3 Nayely Johnston RN RN Lia Adair RN bs1 Corrections: (The following items were deleted from the chart) 20:16 19:44 Hospitalization Ordered by Wilfrid Garcia MD for Observation. Preliminary cg diagnosis is Intractable nausea, vomiting. Bed requested for Telemetry/MedSurg (observation). Status is Observation. Condition is Stable. Problem is an acute exacerbation. Symptoms are unchanged. UTI on Admission? No. snw 21:52 20:16 12/03/2017 19:44 Hospitalization Ordered by Wilfrid Garcia MD for Observation. jl3 Preliminary diagnosis is Intractable nausea, vomiting. Bed requested for Telemetry/MedSurg (observation). Status is Observation. Condition is Stable. Problem is an acute exacerbation. Symptoms are unchanged. UTI on Admission? No. cg 21:52 21:52 12/03/2017 19:44 Hospitalization Ordered by Wilfrid Garcia MD for Observation. jl3 Preliminary diagnosis is Intractable nausea, vomiting. Bed requested for Telemetry/MedSurg (observation). Status is Observation. Condition is Stable. Problem is an acute exacerbation. Symptoms are unchanged. UTI on Admission? Yes. jl3
[2017-12-03] MEDS ORDERED: ACETAMINOPHEN 500 MG TAB PO PRN (20:42)
[2017-12-03] MEDS ORDERED: MORPHINE 2 MG/ML SYR IV PRN (20:42)
[2017-12-03] MEDS: NA CHLORIDE 0.9% 1,000 ML IV SCH (22:17)
[2017-12-03] MEDS: ONDANSETRON 4 MG/2 ML VIAL IV PRN (22:18)
[2017-12-03 22:23] VITALS: BMI 34.4
[2017-12-03] MEDS ORDERED: LOPERAMIDE HCL 2 MG CAPSULE PO PRN (23:24)
[2017-12-03] MEDS ORDERED: TEMAZEPAM 15 MG CAP PO PRN (23:24)
[2017-12-04 00:27] LABS: Potassium 3.8 mmol/L (3.5-5.1)
[2017-12-04] MEDS: NA CHLORIDE 0.9% 1,000 ML IV SCH ×2 (04:43→17:16)
[2017-12-04 05:04] LABS: Absolute Lymphocytes (CBC) 2.2 K/uL (0.7-4.9); Absolute Monocytes 0.6 K/uL (0.1-1.3); Absolute Neutrophil 4.6 K/uL (1.8-8.0); Basophils % 0.9 % (0-1.3); Eosinophils % 2.9 % (0-4.4); Hematocrit 38.1 % (36.0-45.0); MCH 28.2 pg (27.0-35.0); MCV 84.3 fL (80-100); MPV 7.9 fL (7.6-11.3); Monocytes % 7.5 % (3.3-12.3); RBC Red Blood Cell Count 4.52 M/uL (3.86-4.86)
[2017-12-04 05:26] LABS: Albumin 3.5 g/dL (3.4-5.0); Bilirubin Total 0.7 mg/dL (0.2-1.0); Potassium 4.1 mmol/L (3.5-5.1); Protein, Total 6.9 g/dL (6.4-8.2)
[2017-12-04] MEDS: ONDANSETRON 4 MG/2 ML VIAL IV PRN (05:35)
[2017-12-04 05:47] LABS: Urine Appearance CLEAR; Urine Blood 1+ (NEG); Urine Color YELLOW; Urine Glucose NEGATIVE (NEG); Urine Protein NEGATIVE (NEG); Urine Specific Gravity >=1.030 (1.005-1.030); Urine Urobilinogen 0.2 mg/dL (0.2-1.0)
[2017-12-04 05:49] LABS: Urine Bilirubin NEGATIVE (NEG); Urine Microscopic Reflex ORDER UMIC
[2017-12-04 05:57] LABS: Urine Bacteria 20-50 /HPF (<20); Urine Culture Reflex Order REFLEXED; Urine Mucus MOD /HPF (NONE SEEN); Urine RBC <5 /HPF (NONE SEEN)
[2017-12-04] MEDS ORDERED: HYOSCYAMINE SULF 0.125 MG TAB PO PRN (07:08)
[2017-12-04] MEDS ORDERED: PROMETHAZINE 25 MG TABLET PO PRN (07:08)
[2017-12-04] MEDS ORDERED: ALPRAZOLAM 0.25 MG TABLET PO PRN (07:08)
[2017-12-04] MEDS ORDERED: STELARA SQ SCH (07:15)
--- NOTE | 2017-12-04 07:15 | P.HP ---
Certification for Inpatient Patient admitted to: Observation With expected LOS: <2 Midnights Patient will require the following post-hospital care: None Practitioner: I am a practitioner with admitting privileges, knowledge of patient current condition, hospital course, and medical plan of care. Services: Services provided to patient in accordance with Admission requirements found in Title 42 Section 412.3 of the Code of Federal Regulations Patient History Date of Service: 12/03/17 Reason for admission: Intractable nausea and vomiting and diarrhea History of Present Illness: Patient is a 37-year-old female who came into the hospital with intractable nausea and vomiting. She has also been having persistent diarrhea. She has history of Crohn's disease and recently had a parathyroidectomy. This surgery was done about a week ago. Since the surgery she has been having issues with the diarrhea. On arrival to the emergency room she had lab work and imaging studies which did not reveal any significant abnormalities. Her calcium was slightly decreased. Will go ahead and supplemented and check a intact PTH as well. Will go ahead and start patient on IV steroids. Check stool studies. She probably has a Crohn's exacerbation. She her tube and manifold builder is in [place] and her prior meds would be to follow-up with them at discharge. Allergies No Known Allergies Allergy (Verified 12/04/17 02:40) Home Medications: ALPRAZolam [Xanax] 0.25 mg PO BEDTIME PRN 12/03/17 Hyoscyamine Sulfate [Levsin] 0.125 mg PO Q6HP PRN 12/03/17 Promethazine HCl 25 mg PO BEDTIME 12/03/17 Promethazine HCl 25 mg PO Q4HP PRN 12/03/17 Sertraline [Zoloft] 50 mg PO DAILY 12/03/17 Stelara 90 mg SQ SEECOM 12/03/17 Sumatriptan [Imitrex] 100 mg PO PRN 12/03/17 Topiramate [Topamax] 25 mg PO BEDTIME 12/03/17 predniSONE [Deltasone] 20 mg PO BID 12/03/17 - Past Medical/Surgical History Has patient received pneumonia vaccine in the past: No Diabetic: No -: Crohn's -: Migraines -: Hyperparathyroidism -: Parathyroidectomy -: Cholecystectomy -: Anal Fissure Repair -: x2 - Family History Father Medical History: Cancer Notes: bladder CA Mother Medical History: Hypertension, Cancer Notes: Breast CA. Ulcerative Colitis Brother Medical History: Hypertension, GI disease Notes: Crohn's Sister Medical History: GI disease Notes: Ulcerative Colitis - Social History Smoking Status: Never smoker Alcohol use: No CD- Drugs: No Caffeine use: No Place of Residence: Home Review of Systems 10-point ROS is otherwise unremarkable Physical Examination - Vital Signs Temperature: 98.4 F Blood Pressure: 121/70 Pulse: 72 Respirations: 20 Pulse Ox (%): 99 - Physical Exam General: Alert, In no apparent distress, Oriented x3 HEENT: Atraumatic, PERRLA, Mucous membr. moist/pink, EOMI, Sclerae nonicteric Neck: Supple, 2+ carotid pulse no bruit, No LAD, Without JVD or thyroid abnormality Respiratory: Clear to auscultation bilaterally, Normal air movement Cardiovascular: Regular rate/rhythm, Normal S1 S2, No murmurs Gastrointestinal: Normal bowel sounds, Soft and benign, Non-distended, No tenderness Musculoskeletal: No clubbing, No swelling, No tenderness Integumentary: No rashes Neurological: Normal gait, Normal speech, Normal strength at 5/5 x4 extr, Normal tone, Sensation intact, Cranial nerves 3-12 intact, Normal affect Lymphatics: No axilla or inguinal lymphadenopathy - Studies Laboratory Data (last 24 hrs) 12/03/17 18:55: Sodium 141, Potassium 3.7, BUN 12, Creatinine 0.80, Glucose 83 12/03/17 12:12: WBC 9.9, Hgb 14.6, Hct 43.5, Plt Count 459 H 12/03/17 12:12: Sodium 139, Potassium 3.6, BUN 13, Creatinine 0.90, Glucose 97, Phosphorus 2.5, Magnesium 2.3, Total Bilirubin 0.7, AST 15, ALT 25, Alkaline Phosphatase 50 Assessment & Plan - Problems (Diagnosis) (1) Intractable nausea and vomiting Current Visit: Yes Status: Acute (2) Diarrhea Current Visit: Yes Status: Acute (3) Exacerbation of Crohn's disease Current Visit: Yes Status: Acute (4) Status post parathyroidectomy Current Visit: Yes Status: Acute (5) Hypocalcemia Current Visit: Yes Status: Acute - Plan Plan: 1. IV supplementation over calcium 2. IV steroids 3. Gentle hydration 4. Out of bed and ambulate 5. Outpatient follow with her tube and manifold builder 6. Monitor hemodynamics and reassess vital signs in the morning 7. GI and DVT prophylaxis Discharge Plan: Home Plan to discharge in: 48 Hours - Advance Directives Does patient have a Living Will: No Does patient have a Durable POA for Healthcare: No - Code Status/Comfort Care Code Status Assessed: Yes Code Status: Full Code Critical Care: No Time Spent Managing PTS Care (In Minutes): 50
[2017-12-04] MEDS ORDERED: CALCIUM GLUC 10% INJ 4.65 MEQ in NA CHLORIDE 0.9% 100 ML IV ONE (08:00)
[2017-12-04] MEDS: METHYLPREDNISOLONE 125 MG INJ IV SCH ×3 (08:03→17:14)
[2017-12-04] MEDS: SERTRALINE HCL 50 MG TAB PO SCH (08:04)
[2017-12-04] MEDS: SUMATRIPTAN SUCCI 50 MG TAB PO PRN (08:58)
[2017-12-04] MEDS: HYDROCODONE/APAP 5/325 MG TAB PO PRN ×3 (09:54→22:00)
[2017-12-04] MEDS: VANCOMYCIN ORAL SOLN 250 MG/5 ML OSYR PO SCH ×2 (11:43→17:15)
--- NOTE | 2017-12-04 13:13 | PN ---
Date of Progress Note: 12/04/2017 Subjective: The patient seen and examined, chart reviewed and case discussed with RN. The patient i s still having significant amount of diarrhea. No blood. Complains of abdominal pain, nausea and vo miting, unable to tolerate liquids. Review of Systems: Negative except as above. Medications: List reviewed. Objective: Vital Signs: Temperature 97.9, heart rate 76, blood pressure 144/81, respirations 16, O2 100% on room air. General: Awake, alert, oriented x3, ill-appearing female, obese, BMI 34.5. CV: S1, S2. No murmurs. Regular rate and rhythm. Peripheral pulses present. Respiratory: Moving air well bilaterally. No wheezing. No stridor. No use of accessory muscles Ga strointestinal: Abdomen is soft. Tenderness to palpation in the epigastric region. No rebound or g uarding. Hypoactive bowel sounds. Extremities: No clubbing, cyanosis, or edema. Neurologic: Nonfocal. Laboratory Data: Sodium 142, potassium 4.1, chloride 112, CO2 23, BUN 13, creatinine 0.9, glucose 86 , calcium 7.4, AST 10, ALT 19, albumin is 3.5, PTH is 76. WBC 7.7, H and H 12.8 AND 38.1, platelets 306. UA negative leukocyte, 20-50 bacteria. test is negative. Assessment: A 37-year-old female with; 1.Acute Crohn's exacerbation. We will continue with IV steroids, pain medications and IV fluids. 2.Clostridium difficile colitis. The patient tested positive. We will start on oral vancomycin 125 mg p.o. q.6. 3.Intractable nausea, vomiting. We will continue antiemetics. 4.Status post recent parathyroidectomy. PTH normal. 5.Hypocalcemia, likely secondary to above. Plan: We will continue with IV steroids. We will obtain GI consultation. Adjust pain medications. SA/MODL Voice ID: [id number] Report ID: [id number]
[2017-12-04] MEDS: TOPIRAMATE 25 MG TAB PO SCH (22:00)
[2017-12-04] MEDS: PROMETHAZINE 25 MG TABLET PO SCH (22:00)
[2017-12-05] MEDS: VANCOMYCIN ORAL SOLN 250 MG/5 ML OSYR PO SCH ×5 (00:07→23:29)
[2017-12-05] MEDS: METHYLPREDNISOLONE 125 MG INJ IV SCH ×2 (00:07→05:26)
[2017-12-05] MEDS ORDERED: TEMAZEPAM 15 MG CAP PO ONE (00:19)
[2017-12-05] MEDS: NA CHLORIDE 0.9% 1,000 ML IV SCH ×3 (03:55→23:31)
[2017-12-05 05:53] LABS: Absolute Monocytes 0.1 K/uL (0.1-1.3); Absolute Neutrophil 7.3 K/uL (1.8-8.0); Hematocrit 38.1 % (36.0-45.0); Lymphocytes % 11.4 % (15.3-44.8); MCH 28.4 pg (27.0-35.0); MCV 84.3 fL (80-100); MPV 8.2 fL (7.6-11.3); Monocytes % 1.4 % (3.3-12.3); RBC Red Blood Cell Count 4.52 M/uL (3.86-4.86)
[2017-12-05 06:05] LABS: Albumin 3.4 g/dL (3.4-5.0); Bilirubin Total 0.5 mg/dL (0.2-1.0); Potassium 4.9 mmol/L (3.5-5.1)
[2017-12-05] MEDS: SERTRALINE HCL 50 MG TAB PO SCH (09:34)
[2017-12-05] MEDS: SUMATRIPTAN SUCCI 50 MG TAB PO PRN (09:47)
[2017-12-05 09:48] LABS: Blood Morphology Comment NOT SEEN (NOT SEEN); Platelet Estimate ADEQ; Urine White Blood Cell Casts OK
[2017-12-05] MEDS: HYDROCODONE/APAP 5/325 MG TAB PO PRN ×4 (10:44→23:33)
[2017-12-05] MEDS ORDERED: predniSONE 20 MG TAB PO ONE (11:28)
[2017-12-05] MEDS ORDERED: CALCIUM GLUC 10% INJ 9.3 MEQ in NA CHLORIDE 0.9% 100 ML IV ONE (12:00)
--- NOTE | 2017-12-05 13:53 | P.PN ---
Date of Service: 12/05/17 Subjective: Currently, the patient lying in bed. She will need to have massive amount of diarrhea, 8 bowel movements yesterday, 3 this morning. She continued to have abdominal cramps. No fever or chills. No night sweats. No nausea, vomiting. Objective: Vital Signs: Currently, vital signs 130/84, respiratory rate 18, pulse 78, temperature 96.8. General: The patient alert and oriented x3, does not look in any distress. HEENT: Atraumatic, normocephalic. PERRLA. Oral mucosa is moist. Neck: Supple. No JVD. No carotid bruits. Chest: Clear to auscultation. Good air entry. Heart: Regular rate and rhythm. S1, S2 normal. No gallop or murmur. Abdomen: Minimal tenderness to palpation in the epigastric area. No rebound. No guarding. Positive bowel sounds. Extremities: No clubbing, cyanosis, or edema. No calf tenderness. Laboratory Data: Labs today showed CBC within normal. CMP within normal except for chloride 116, carbon dioxide 20, glucose 129, calcium 7.3, alkaline phosphatase 44, globulin 3.6. Stool culture was positive for C diff. Urine culture showed between 10,000 and 20,000 colony of mixed arely. Assessment And Plan: 1. [id number] exacerbation. I doubt the patient had diarrhea most likely secondary to her Clostridium difficile. I will try to switch her methylprednisone to oral prednisone at this point. 2. Clostridium difficile colitis. Continue oral vancomycin. The patient is not doing much better. We will continue observation in the hospital overnight and keep her on IV hydration given severity of diarrhea. The patient want Imodium, but we could not offer that due to the Clostridium difficile. 3. Intractable nausea, vomiting, improved. 4. History of parathyroidectomy. 5. Hypercalcemia, we will replace. 6. Symptomatic treatment for pain. 7. Insomnia, continue Restoril. 8. History of migraine, on Imitrex. 9. Discharge plan in the a.m. hopefully if the patient's diarrhea getting better. \
[2017-12-05] MEDS: ZOLPIDEM TARTRATE 5 MG TABLET PO SCH (20:42)
[2017-12-05] MEDS: PROMETHAZINE 25 MG TABLET PO SCH (20:43)
[2017-12-05] MEDS: TOPIRAMATE 25 MG TAB PO SCH (20:43)
[2017-12-06] MEDS: VANCOMYCIN ORAL SOLN 250 MG/5 ML OSYR PO SCH ×3 (05:34→17:34)
[2017-12-06] MEDS: SERTRALINE HCL 50 MG TAB PO SCH (09:34)
[2017-12-06] MEDS: HYDROCODONE/APAP 5/325 MG TAB PO PRN ×4 (09:34→21:45)
[2017-12-06 11:19] VITALS: O2SAT 100
[2017-12-06] MEDS: NA CHLORIDE 0.9% 1,000 ML IV SCH ×3 (12:27→20:27)
[2017-12-06 12:50] LABS: Absolute Lymphocytes (CBC) 2.5 K/uL (0.7-4.9); Absolute Monocytes 0.5 K/uL (0.1-1.3); Absolute Neutrophil 4.2 K/uL (1.8-8.0); Basophils % 0.2 % (0-1.3); Eosinophils % 0.3 % (0-4.4); Hematocrit 36.8 % (36.0-45.0); Lymphocytes % 34.1 % (15.3-44.8); MCH 28.2 pg (27.0-35.0); MCV 85.3 fL (80-100); MPV 8.6 fL (7.6-11.3); Monocytes % 7.3 % (3.3-12.3); RBC Red Blood Cell Count 4.32 M/uL (3.86-4.86)
[2017-12-06 13:07] LABS: Albumin 3.3 g/dL (3.4-5.0); Bilirubin Total 0.4 mg/dL (0.2-1.0); Potassium 3.9 mmol/L (3.5-5.1); Protein, Total 6.3 g/dL (6.4-8.2)
[2017-12-06] MEDS: CEFTRIAXONE/SWI 2gm 2 GM/20 ML SYR IV SCH (13:11)
--- NOTE | 2017-12-06 13:52 | PN ---
Subjective: Currently, the patient is lying in bed. She looks comfortable. She continued to have a bdominal cramp. She had yesterday according to the nurse 11 bowel movements, but the patient stated that she only have total of 6. There were no fever or chills overnight. Urine culture back with E. coli, which is resistant to multiple organisms. Physical Examination: Vital Signs: Today, blood pressure is at 135/84, respiratory rate 16, pulse 75, temperature 97.4, th e patient is saturating 100% on room air. General: She is alert and oriented x3. Does not look in any distress. HEENT: Atraumatic, normocephalic. PERRLA. Oral mucosa is moist. Neck: Supple. No JVD. No carotid bruits. Chest: Clear to auscultation. Good air entry. Heart: Regular rate and rhythm. S1, S2 normal. No gallop. Abdomen: Soft. Minimal tenderness diffusely. No guarding. No rebound. Positive bowel sounds. Extremities: No clubbing. No edema. No calf tenderness. Neurologic: Grossly intact. Laboratory Data: Labs today are still pending. Urine culture was positive for E. coli. Assessment And Plan: 1.Clostridium diff colitis. The patient today is slightly better. We will continue oral vancomycin for now. The patient off the Imodium. Continue IV fluid hydration. I will advance her diet to ful l liquid. 2.History of Crohn disease. I do not think the patient has exacerbation of that at this point. She was omitted IV, I switched her to prednisone oral tapering dose from 60 to 40 today. There is no bl oody stool. 3.Intractable nausea and vomiting, resolved. 4.History of recent parathyroidectomy. 5.Hypocalcemia, replaced yesterday. Today, labs pending. We will follow up on that this afternoon. 6.Insomnia. Continue Restoril. 7.History of migraine. Continue Imitrex. 8.Discharge planning hopefully in a.m. if the patient's bowel movement numbers below 4 and she gil ated full liquids well. 9.Urinary tract infection ? contamination with colony below 100,000 just because the Escherichia col i is very resistant to multiple antibiotics. I will start the patient on ceftriaxone while she is in the hospital and consider a short dose of cephalosporin upon discharge. AMALIA/CANDICE Voice ID: [id number] Report ID: [id number]
[2017-12-06] MEDS: PROMETHAZINE 25 MG TABLET PO SCH (20:26)
[2017-12-06] MEDS: TOPIRAMATE 25 MG TAB PO SCH (20:26)
[2017-12-06] MEDS: ZOLPIDEM TARTRATE 5 MG TABLET PO SCH (20:27)
[2017-12-07] MEDS: VANCOMYCIN ORAL SOLN 250 MG/5 ML OSYR PO SCH ×2 (00:03→05:11)
[2017-12-07 05:01] LABS: Absolute Lymphocytes (CBC) 4.5 K/uL (0.7-4.9); Absolute Monocytes 0.6 K/uL (0.1-1.3); Absolute Neutrophil 2.3 K/uL (1.8-8.0); Basophils % 0.4 % (0-1.3); Eosinophils % 1.3 % (0-4.4); Hematocrit 38.2 % (36.0-45.0); Lymphocytes % 59.8 % (15.3-44.8); MCH 28.2 pg (27.0-35.0); MCV 85.3 fL (80-100); MPV 8.4 fL (7.6-11.3); Monocytes % 7.5 % (3.3-12.3); RBC Red Blood Cell Count 4.47 M/uL (3.86-4.86)
[2017-12-07 05:13] LABS: Albumin 3.2 g/dL (3.4-5.0); Bilirubin Total 0.2 mg/dL (0.2-1.0); Magnesium 1.9 mg/dL (1.8-2.4); Protein, Total 6.4 g/dL (6.4-8.2)
[2017-12-07] MEDS: NA CHLORIDE 0.9% 1,000 ML IV SCH (05:17)
[2017-12-07 06:56] LABS: Blood Morphology Comment NOT SEEN (NOT SEEN); Platelet Estimate ADEQ
--- NOTE | 2017-12-07 08:28 | P.DS ---
Admission Date: 12/05/17 Discharge Date: 12/07/17 Primary Care Provider: Dr. Morton; GI-Dr. Gamez([place], [place]) Disposition: ROUTINE DISCHARGE Discharge Condition: GOOD Reason for Admission: Intractable nausea and vomiting and diarrhea Procedures: CT scan: COMPARISON: [facility] Protocol dated 07/19/2017 TECHNIQUE: Biphasic CT imaging of the abdomen and pelvis was performed with 100 ml non-ionic IV contrast. All CT scans are performed using dose optimization technique as appropriate and may include automated exposure control or mA/KV adjustment according to patient size. FINDINGS: The lung bases are clear. The liver, spleen, pancreas, adrenal glands and kidneys are within normal limits. Cholecystectomy. No bowel obstruction, free air, free fluid or abscess. The terminal ileum appears mildly dilated. The appendix is normal. No evidence of significant lymphadenopathy. No suspicious bony findings. IUD is present within the uterus. IMPRESSION: No acute intra-abdominal or pelvic finding. Mild dilatation of the terminal ileum is seen. - Problems (1) C. difficile colitis Current Visit: Yes Status: Acute (2) UTI (urinary tract infection) Current Visit: Yes Status: Acute Qualifiers: Urinary tract infection type: site unspecified Hematuria presence: without hematuria Qualified Code(s): N39.0 - Urinary tract infection, site not specified (3) Diarrhea Onset Date: 12/04/17 Current Visit: Yes Status: Acute Qualifiers: Diarrhea type: infectious Qualified Code(s): A09 - Infectious gastroenteritis and colitis, unspecified (4) Exacerbation of Crohn's disease Onset Date: 12/04/17 Current Visit: Yes Status: Acute Qualifiers: Digestive disease complication type: other complication Qualified Code(s): K50.918 - Crohn's disease, unspecified, with other complication (5) Hypocalcemia Onset Date: 12/04/17 Current Visit: Yes Status: Acute (6) Intractable nausea and vomiting Onset Date: 12/04/17 Current Visit: Yes Status: Acute (7) Status post parathyroidectomy Onset Date: 12/04/17 Current Visit: Yes Status: Acute (8) Depression Current Visit: Yes Status: Chronic Qualifiers: Depression Type: unspecified Qualified Code(s): F32.9 - Major depressive disorder, single episode, unspecified (9) Migraine headache Current Visit: Yes Status: Chronic Qualifiers: Migraine type: unspecified Status migrainosus presence: without status migrainosus Intractability: not intractable Qualified Code(s): G43.909 - Migraine, unspecified, not intractable, without status migrainosus Brief History of Present Illness: 37-year-old female presented to the ER with diarrhea, nausea and vomiting. Patient has a history of Crohn's. The patient had been started on new regimen and was taking steroids. The patient also reported recent parathyroidectomy about 1 week prior. The patient was evaluated the emergency room. She was admitted for further evaluation. Hospital Course: During the course of her stay the patient was found to have C diff colitis. The patient presented with nausea, vomiting and diarrhea. The patient was placed on vancomycin orally. Her symptoms improved. At discharge she was able to tolerate her diet. Diarrhea had significantly improved. At discharge she will continue with vancomycin 125 mg 1 pill 4 times a day for 10 days. The patient will need a follow up with her GI specialist in [place] within the next week to continue her care. Patient will likely need colonoscopy in 4-6 weeks to monitor her progress. Education on C diff colitis will be provided. The patient also has a history of Crohn's colitis. She was recently started on steroid medication and a new medication for Crohn's. The plan is for her to continue with her treatment. Her steroid medication will need to be tapered off by the GI specialist. She will follow up with her GI specialist in [place] within the next week to address her her C diff colitis and Crohn's. Patient was found to have a UTI. Urine culture positive for E coli. Patient did have symptoms. At discharge she will continue with Augmentin 500 mg 1 pill twice daily for 7 days. Recommendation is to recheck urine culture after that time to monitor resolution. Patient had recent parathyroidectomy. Patient with hypocalcemia. At discharge will continue with Caltrate plus D one pill twice daily. Recommendation is to recheck Lab-CMP within 1 week to monitor her progress. Patient will need a follow up with the parathyroid surgeon to follow up on lab and her recent surgery. Patient has depression. Patient will continue with her medication including Zoloft 50 mg daily. Patient has a history of migraine headaches. She will continue with her medication Topamax 25 mg at night and Imitrex as needed. Vital Signs/Physical Exam: Temp Pulse Resp BP Pulse Ox 97.4 F 67 16 139/69 100 12/07/17 04:00 12/07/17 04:00 12/07/17 04:00 12/07/17 04:00 12/07/17 04:00 General: Alert, In no apparent distress, Oriented x3, Cooperative HEENT: Atraumatic, Mucous membr. moist/pink Neck: Supple, No Thyromegaly Respiratory: Clear to auscultation bilaterally, Normal air movement Cardiovascular: Normal pulses, Regular rate/rhythm Gastrointestinal: Normal bowel sounds, Soft and benign, Non-distended, No tenderness, No masses, No rebound, No guarding Musculoskeletal: No erythema, No tenderness, No warmth Integumentary: No tenderness/swelling, No erythema, No warmth, No cyanosis Neurological: Normal speech, Normal strength at 5/5 x4 extr, Normal tone, Normal affect Laboratory Data at Discharge: WBC 7.5 K/uL (4.3-10.9) 12/07/17 04:29 Hgb 12.6 g/dL (12.0-15.0) 12/07/17 04:29 Hct 38.2 % (36.0-45.0) 12/07/17 04:29 Plt Count 352 K/uL (152-406) 12/07/17 04:29 Sodium 142 mmol/L (136-145) 12/07/17 04:29 Potassium 4.0 mmol/L (3.5-5.1) 12/07/17 04:29 BUN 7 mg/dL (7-18) 12/07/17 04:29 Creatinine 0.90 mg/dL (0.55-1.3) 12/07/17 04:29 Glucose 79 mg/dL (74-106) 12/07/17 04:29 Phosphorus 2.5 mg/dL (2.5-4.9) 12/03/17 12:12 Magnesium 1.9 mg/dL (1.8-2.4) 12/07/17 04:29 Total Bilirubin 0.2 mg/dL (0.2-1.0) 12/07/17 04:29 AST 8 U/L (15-37) L 12/07/17 04:29 ALT 17 U/L (12-78) 12/07/17 04:29 Alkaline Phosphatase 37 U/L (45-117) L 12/07/17 04:29 Home Medications: ALPRAZolam [Xanax*] 0.25 mg PO BEDTIME PRN 12/03/17 Hyoscyamine Sulfate [Levsin TAB*] 0.125 mg PO Q6HP PRN 12/03/17 Promethazine HCl 25 mg PO BEDTIME 12/03/17 Promethazine HCl 25 mg PO Q4HP PRN 12/03/17 Sertraline [Zoloft*] 50 mg PO DAILY 12/03/17 Stelara 90 mg SQ SEECOM 12/03/17 Sumatriptan [Imitrex*] 100 mg PO PRN 12/03/17 Topiramate [Topamax*] 25 mg PO BEDTIME 12/03/17 predniSONE [Prednisone*] 20 mg PO BID 12/03/17 Amoxicillin/Potassium Clav [Augmentin 500-125 Tablet] 1 each PO BID #14 tablet 12/07/17 Vancomycin HCl [Vancocin HCl] 125 mg PO QID #40 capsule 12/07/17 New Medications: Amoxicillin/Potassium Clav [Augmentin 500-125 Tablet] 1 each PO BID #14 tablet Vancomycin HCl [Vancocin HCl] 125 mg PO QID #40 capsule Patient Discharge Instructions: 1. Patient will need a follow up with her PCP within 1 week to follow up this hospitalization and continue her care. 2. Patient presented with nausea, vomiting and diarrhea. Patient found to have C. diff. colitis. The patient was placed on vancomycin orally. Her symptoms improved. At discharge she will continue with vancomycin 125 mg 1 pill 4 times a day for 10 days. The patient will need a follow up with her GI specialist in [place] within the next week to continue her care. Patient will likely need colonoscopy in 4-6 weeks to monitor her progress. Education on C diff colitis will be provided. 3. The patient also has a history of Crohn's colitis. She was recently started on steroid medication and a new medication for Crohn's. The plan is for her to continue with her treatment. She will follow up with her GI specialist in [place] within the next week to address her her C diff colitis and Crohn's. 4. Patient was found to have a UTI. Urine culture positive for E coli. Patient did have symptoms. At discharge she will continue with Augmentin 500 mg 1 pill twice daily for 7 days. Recommendation is to recheck urine culture after that time to monitor resolution. 5. Patient had recent parathyroidectomy. Patient with hypocalcemia. At discharge will continue with Caltrate plus D one pill twice daily. Recommendation is to recheck Lab-CMP within 1 week to monitor her progress. Patient will need a follow up with the parathyroid surgeon to follow up on lab and her recent surgery. 6. Patient has depression. Patient will continue with her medication including Zoloft 50 mg daily. 7. Patient has a history of migraine headaches. She will continue with her medication Topamax 25 mg at night and Imitrex as needed. Diet: AHA Activity: Ad mane Time spent managing pt's care (in minutes): 55
[2017-12-07] MEDS ORDERED: predniSONE 20 MG TAB PO SCH (09:00)
[2017-12-07] MEDS: CEFTRIAXONE/SWI 2gm 2 GM/20 ML SYR IV SCH (09:16)
[2017-12-07] MEDS: SERTRALINE HCL 50 MG TAB PO SCH (09:17)
[2017-12-07] MEDS: HYDROCODONE/APAP 5/325 MG TAB PO PRN (09:17)
[2017-12-07 11:10] VITALS: BP 136/95; TEMP 97.5
== END 2017-12-07 11:07 | disposition home or self-care (01) | DRG 372 ==
LOC: ER 11:51 → ERHOLD 20:12 → 2ND 21:21 → OBSVTOIN 12-05 12:56
PROVIDERS: ADMIT Hospitalist; ATTEND Family Medicine
DX: A04.72 Enterocolitis due to Clostridium difficile, not specified as recurrent (principal); N39.0 Urinary tract infection, site not specified; K50.119 Crohn's disease of large intestine with unspecified complications; E83.51 Hypocalcemia; F32.9 Major depressive disorder, single episode, unspecified; G43.909 Migraine, unspecified, not intractable, without status migrainosus; E89.2 Postprocedural hypoparathyroidism; B96.20 Unspecified Escherichia coli [E. coli] as the cause of diseases classified elsewhere; G47.00 Insomnia, unspecified
CPT/HCPCS: 36415; 71045; 74177; 80048; 80053; 80076; 81003; 81015; 81025; 82550; 82553; 83735; 83970; 84100; 84443; 85025; 87045; 87046; 87077; 87086; 87088; 87186; 87493; 89055; 93005; 96361; 96374; 96375; 99285; G0378; J0610; J0696; J2270; J2405; J2550; J2930; J3010; J3360; J7030; J7512; Q9967

== ENCOUNTER 2023-04-02 21:44 | Emergency (ER) | payer BC, SELFPAY ==
--- OUTSIDE RECORDS SUMMARY | 2023-04-02 21:46 | XMS REPORT | Clinical Summary ---
:1980 Author Organization [facility] Address [address] [place] [address] Care Team Providers Name Role Phone Cherelle Morton MD Unavailable Unavailable Eitan Heredia MD Primary Care Provider [phone] Allergies No known active allergies Medications Medication Sig Dispensed Refills Start Date End Date Status gabapentin (NEURONTIN) Take 1 tablet by 0 03/04/2019 Active 600 mg tablet mouth daily. topiramate (Topamax) Take 2 tablets by 0 10/20/2017 Active 25 mg tablet mouth daily. SUMAtriptan (IMITREX) Take 1 tablet by 0 09/02/2019 Active 100 mg tablet mouth as needed. ustekinumab (STELARA) Inject 90 mg under 0 Active 90 mg/mL injection the skin every 3 (three) months. Every 8 weeks AIMOVIG [employer]OINJECTOR Inject 70 mg as 0 09/15/2019 Active 70 mg/mL atIn directed every 30 (thirty) days. ALPRAZolam (Xanax) 0.5 Take 1 tablet (0.5 2 tablet 0 10/06/19 20 Active mg tabletIndications: mg) by mouth See Fear of other medical Admin care Instructions. Take when directed by MRI staff. May repeat x 1 dose, if needed. Active Problems Problem Noted Date Diagnosed Date Migraine Pdkuokq-Yujic-Ybcek disease Crohn's disease Surgical History Surgery Date Site/Laterality Comments HERNIA REPAIR SECTION, LOW TRANSVERSE x2 LAPAROSCOPIC CHOLECYSTECOMY CARPAL TUNNEL RELEASE Bilateral ANUS SURGERY PARATHYROIDECTOMY Medical History Medical History Date Comments Crohn's disease Ofhsklu-Rpxln-Cmzeo disease Migraine Family History Medical History Relation Name Comments Bladder Cancer Father Breast cancer Mother Relation Name Status Comments Father Mother Social History Tobacco Use Types Packs/Day Years Used Date Smoking Tobacco: Never Smokeless Tobacco: Never Alcohol Use Standard Drinks/Week Comments Not Currently 0 (1 standard drink = 0.6 oz pure alcoho l) Sex and Gender Information Value Date Recorded Sex Assigned at Not on file Gender Identity Not on file Sexual Orientation Not on file Obstetrics History Para Term AB IAB SAB Ectopic Multiple Living Live Births 2 2 2 Date Outcome GA Total Labor/2nd/3rd Weight Sex Delivery Anes PTL Sonia A 1 A5 Name Clin Labor Para Para Comments Menarche 9 Parity 34 OBC: over 10 years. Hormonal Therapy non e Last Pap over 3 years ago. Normal Abnorm al Pap none. Last Ny 08/20/2019. BIRADS 2 Last Colon 2018. Polyps benign Breast Bx none Last Filed Vital Signs Not on file Plan of Treatment Health Maintenance Due Date Last Done Comments COVID-19 Vaccination (#1) 02/26/1979 Results Not on fileafter 04/02/2022 Insurance Payer Benefit Plan / Subscriber ID Effective Dates Phone Addre ss Type Group [employer] PPO POS [id number] 2019-Present [address] [place] [address] Vashti Colin Personal/Famil Self 1980 [address] [place] (Home) [address] (Work) [address] Care Teams [employer] Supervisor Relationship Specialty Start Date End Date Cherelle Morton MD PCP - External Primary Internal Medicine 09/13/19 Care Provider Eitan Heredia PCP - General Cancer Prevention 09/16/19 MD Jewel [address] [place] [address]
--- OUTSIDE RECORDS SUMMARY | 2023-04-02 21:50 | XMS REPORT | Continuity of Care Document ---
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 Ofirmev No or = 50 Memori a 5-29 kg, Start l 17:00: date: 09/29/21 12:00:00 CDT, Duration: 30 day, Stop date: 10/29/21 6:00:00 CDT ketOROLAC No 4 days Memor ia 5-29 l 17:00: MEDICATION Sb 00 WASTE Product Size: 30 mg Product Wasted: ___ mg acetaminoph No Notes: Max Memoria en 5-29 acetaminop l 17:00: hen 4000 [place] 00 mg/day (4 gm/day). (Same as: Tylenol Extra Strength) ketOROLAC No 4 days Memor ia 5-29 l 15:53: MEDICATION [place] 00 WASTE Product Size: 30 mg Product Wasted: ___ mg Ofirmev No Notes: Memoria 5-29 Infuse l 15:53: over 15 Sb 00 minutes Do not exceed 4gm/day of acetaminop hen MEDICATION WASTE Product Size: 1000 mg Product Wasted: ___ mg Dilaudid No Notes: Memoria 5- Same as l 15:37: Dilaudid Sb 00 bisacodyl No Notes: Memori a - (Same As: l 14:38: Dulcolax, [place] Bisco-Lax) Isolyte S No 1,000 ml, Mem oria PH 7.4 09-29 Rate: 100 l 1,000 ml 14:32: ml/hr, Sb 00 Infuse over: 10 hr, Route: IV, Dosing Weight 102.273 kg, Total Volume: 1,000, Start date: 09/29/21 9:32:00 CDT, Duration: 30 day, Stop date: 10/29/21 9:31:00 CDT, BSA: 2.23 m2 oxyCODONE No Notes: Memori a immediate 09-29 (Same as: l release 13:26: Roxicodone Herm kim ) oxyCODONE No Notes: Memori a - (Same as: l 13:26: Roxicodone [place] ) Dilaudid No Notes: Memoria - Same as l 09:05: Dilaudid Sb 00 Isolyte S No Notes: Memori a PH-7.4 09-29 (Same as: l (Bolus) IV 08:48: Isolyte S He rmann 00 PH7.4, Normosol-R PH 7.4, Plasma-Lyt e A ) Protonix No Notes: For Mem oria 09-29 IV push l 03:07: reconstitu [place] te with 10 ml 0.9% sodium chloride and push over 2 minutes. (Same as: Protonix) Isolyte S No Notes: Memori a PH 7.4 - (Same as: l 1,000 mL 03:06: Isolyte S Herm kim 00 PH7.4, Normosol-R PH 7.4, Plasma-Lyt e A ) Phenergan + No Notes: Do M emoria Sodium 09-29 not give l Chloride 01:32: IV push. Betina nn 0.9% IV 50 00 (Same as: mL Phenergan) Zofran No Notes: [facility] 5-29 (Same as: l 01:04: Zofran) MEDICATION WASTE Product Size: 4 mg Product Wasted: ___ mg gabapentin No Notes: Memor ia 5-28 (Same as: l 21:00: Neurontin) methadone No Notes: Memori a 5-28 (Same as: l 19:00: Dolophine) Dilaudid No Notes: [facility]oria 5-28 Same as l 17:16: Dilaudid simethicone No Notes: Gerry mel 5-28 (Same as: l 14:40: Mylicon) FLUoxetine No Notes: Memor ia 5-28 (Same as: l 14:00: Prozac, Sarafem) Synthroid No Notes: Memori a 5-28 Take 1 l 11:30: hour before or 2 hours after meal; Enteral feeds may interefere with the absorption of this medication .(Same as:Levothr oid, Synthroid) oxyCODONE No Notes: Memori a immediate 5-28 (Same as: l release 10:20: Roxicodone ) gabapentin No Notes: Memor ia 5-28 (Same as: l 05:00: Neurontin) remove No 1 patch, Memoria patch 5-28 Route: l 02:00: TOP, Bedtime, Drug form: ERFILM, Start date: 09/27/21 21:00:00 CDT, Duration: 30 day, Stop date: 10/26/21 21:00:00 CDT, 0 mirtazapine No Notes: Gerry mel 5-28 (Same l 02:00: as:Remeron ) oxyCODONE No Notes: Memori a immediate 5-28 (Same as: l release 01:42: Roxicodone ) senna 8.6 No Notes: Memori a mg oral 5-28 (Same as: l tablet 01:40: Senokot) gabapentin No Notes: [facility] ia 100 mg oral 5-28 (Same as: l capsule 01:38: Neurontin) zolpidem No Notes: [facility] 5-27 (Same As: l 21:06: Ambien) methadone No Notes: Memori a 5-27 (Same as: l 21:00: Dolophine) Imitrex 100 Yes 100 mg = 1 Memoria mg oral 5-27 tab, PO, l tablet 19:23: Q2H, PRN Headache 7-10 FLUoxetine No 80 mg = 2 Me moria 40 mg oral 5-27 cap, PO, l capsule 19:22: Daily Synthroid No 50 Memoria 50 mcg 5-27 microgram l (0.05 mg) 19:21: = 1 tab, Herm kim oral tablet 00 PO, Q630AM Xanax 0.5 No 0.5 mg = 1 Me moria mg oral 5-27 tab, PO, l tablet 19:21: BID, PRN as needed for anxiety mirtazapine No 7.5 mg = 1 Memoria 7.5 mg oral 5-27 tab, PO, l tablet 19:20: Bedtime zolpidem No 10 mg, PO, Mem oria 5-27 Bedtime, l 19:20: PRN as needed for sleep morphine No Notes: [facility] Sulfate 5-27 (Same l 18:37: as:MORPhin e Sulfate) Robaxin No Notes: [facility]oria 5-27 (Same l 14:22: as:Robaxin ) MiraLax No Notes: [facility]oria 5-27 Dissolve l 14:00: in 8 oz of water or juice. lidocaine No 1 patch, Gerry mel 4% patch - Route: l 14:00: TOP, Daily, Drug form: FILM, Start date: 09/27/21 9:00:00 CDT, Duration: 30 day, Stop date: 10/26/21 9:00:00 CDT, 0 gabapentin No Notes: Memor ia 5-27 (Same as: l 14:00: Neurontin) celecoxib No Notes: Memori a 5-27 NSAID. l 14:00: Please check indication . Not for seizure. (Same As: CeleBREX) potassium No Notes: Memori a chloride 20 5-27 (Same as: l mEq oral 13:58: K-Dur 20) kim tablet, 00 "Do Not extended Crush" release Give with (KCL) food and full glass of water For patients unable to swallow tablet, dissolve in one half glass of water. Allow about 2 minutes for the tablets to disintegra te. Stir before giving to prepare slurry and administer . Please exclude Patient s with feeding tube less than 14 Indian (Dobhoff, J-tube etc) and pediatric and patients. oxyCODONE No Notes: Memori a immediate 5-27 (Same as: l release 13:55: Roxicodone Herm kim ) oxyCODONE No Notes: Memori a immediate 5-27 (Same as: l release 13:50: Roxicodone Herm kim ) tramadol No Notes: Not Mem oria 5-27 to exceed l 07:45: 400mg/day. (Same As: Ultram) senna No Notes: Memoria 5-27 (Same as: l 02:00: Senokot) Lovenox No Notes: [facility]oria 5-27 (Same as: l 02:00: Lovenox) docusate No 200 mg, 2 Gerry mel 5-26 cap, l 22:00: Route: PO, Drug form: CAP, BID, Dosing Weight 102.273, kg, Start date: 09/26/21 17:00:00 CDT, Duration: 30 day, Stop date: 10/26/21 9:00:00 CDT, 0 methocarbam No 750 mg, 1 M emoria ol 5-26 tab, l 22:00: Route: PO, Drug form: TAB, TID, Dosing Weight 102.273, kg, Start date: 09/26/21 17:00:00 CDT, Duration: 30 day, Stop date: 10/26/21 13:00:00 CDT, 0 oxyCODONE No Notes: Memori a immediate 09-26 (Same as: l release 21:15: Roxicodone ) Dilaudid No Notes: [facility]oria 5-26 Same as l 21:14: Dilaudid gabapentin No Notes: Memor ia - (Same as: l 21:00: Neurontin) ANES No 10 mg, Memoria hydrALAZINE 09-26 Route: l 19:58: IVP, Sb 00 Q20Min, Dosing Weight 102.273, kg, PRN Elevated BP, Start date: 09/26/21 14:58:00 CDT, Duration: 2 doses or times, Stop date: Limited # of times ANES No 10 mg, Memoria labetalol 09-26 Route: l 19:58: IVP, [place] 00 Q5Min, Dosing Weight 102.273, kg, PRN Elevated BP, Start date: 09/26/21 14:58:00 CDT, Duration: 5 doses or times, Stop date: Limited # of times ANES No 10 mg, [facility] oxyCODONE 5 09-26 Route: PO, l mg 19:36: Drug form: [place] immediate 00 TAB, Q4H, release Dosing tablet Weight 102.273, kg, PRN Pain Score 7-10, Start date: 09/26/21 14:36:00 CDT, Duration: 30 day, Stop date: 10/26/21 14:35:00 CDT ANES No 1 mg, Memoria midazolam 09-26 Route: l 19:36: IVP, Sb 00 Q5Min, Dosing Weight 102.273, kg, PRN Anxiety, Start date: 09/26/21 14:36:00 CDT, Duration: 2 doses or times, Stop date: Limited # of times ropivacaine No Notes: Gerry mel 800 mg + 5- Preservati l Q-Pump 1 ea 17:20: ve-free. He rmann + Sodium 00 (Same as: Chloride Naropin) 0.9% (titrate) MEDICATION 320 mL WASTE Product Size: 200 mg Product Wasted: ___ mg ropivacaine No Notes: Gerry mel 800 mg + 5-26 Preservati l Q-Pump 1 ea 17:18: ve-free. He rmann + Sodium 00 (Same as: Chloride Naropin) 0.9% (titrate) MEDICATION 320 mL WASTE Product Size: 200 mg Product Wasted: ___ mg ceFAZolin No Route: IV, Me moria (ANES) 5-26 Drug form: l 15:49: INJ, ONCE, [place] 00 Stop date: 09/26/21 10:49:00 CDT sugammadex No Route: IV, M emoria (ANES) 5-26 Drug form: l 15:49: SOLN, [place] 00 ONCE, Stop date: 09/26/21 10:49:00 CDT ANES No Notes: Max Memoria acetaminoph 5-26 acetaminop l en 15:49: hen 4000 Sb 00 mg/day (4 gm/day). (Same as: Tylenol Extra Strength) ANES No Notes: [facility]oria oxyCODONE 5 5-26 (Same as: l mg 15:49: Roxicodone Sb immediate 00 ) release tablet ANES No Notes: [facility]oria HYDROmorpho 5-26 Same as l ne 15:49: Dilaudid 00 ANES No Notes: Memoria flumazenil 5-26 (Same as: l 15:49: Romazicon) 00 ANES No Notes: [facility]oria naloxone 5-26 Same as l 15:49: Narcan 00 ANES No Notes: [facility]oria ondansetron 5-26 (Same as: l 15:49: Zofran) 00 MEDICATION WASTE Product Size: 4 mg Product Wasted: ___ mg ANES No Notes: Memoria dexamethaso 5-26 Concentrat l ne 15:49: ion: [place] 00 4mg/ml ANES No Notes: Do Memoria promethazin - not give l e + Sodium 15:49: IV push. Her navarrete Chloride 00 (Same as: 0.9% IV 50 Phenergan) mL ANES No Notes: Memoria methocarbam 09-26 (Same l ol + Sodium 15:49: as:Robaxin Sb Chloride 00 ) 0.9% IV 100 mL fentaNYL No Route: IV, Mem oria (ANES) - Drug form: l 15:44: INJ, ONCE, [place] Stop date: 09/26/21 10:44:00 CDT ketAMINE No Route: IV, Mem oria (ANES) - Drug form: l 15:44: INJ, ONCE, Stop date: 09/26/21 10:44:00 CDT ondansetron No Route: IV, Memoria (ANES) - Drug form: l 14:22: INJ, ONCE, [place] Stop date: 09/26/21 9:22:00 CDT calcium No Route: IV, Gerry mel chloride 09-26 Drug form: l (ANES) 14:12: INJ, ONCE, Betina nn Stop date: 09/26/21 9:12:00 CDT docusate No Notes: Memoria - (Same as: l 14:00: Colace) [place] (Do Not Crush) naproxen No Notes: Memoria - (Same as: l 14:00: Naprosyn) [place] 00 Take with food. acetaminoph No Notes: Max Memoria en - acetaminop l 13:39: hen 4000 [place] mg/day (4 gm/day). (Same as: Tylenol Extra Strength) tramadol No Notes: Not Mem oria 5-26 to exceed l 13:39: 400mg/day. [place] (Same As: Ultram) rocuronium No Route: IV, M emoria (ANES) - Drug form: l 13:32: INJ, ONCE, [place] Stop date: 09/26/21 8:32:00 CDT famotidine No Route: IV, M emoria (ANES) 5-26 Drug form: l 13:21: INJ, ONCE, Stop date: 09/26/21 8:21:00 CDT Tylenol No Notes: Do Memor ia 5-26 not exceed l 13:05: 4 gm/day. (Same as: Tylenol) tramadol No Notes: Not Mem oria 5-26 to exceed l 13:04: 400mg/day. (Same As: Ultram) Dextrose No 12.5 gm, Memor ia 50% Syringe - 25 mL, l (D50W) 13:02: Route: IVP, Drug Form: INJ, Dosing Weight 102.273, kg, PRN, PRN Blood Glucose Results, Start date: 09/26/21 8:02:00 CDT, Duration: 30 day, Stop date: 10/26/21 8:01:00 CDT, 0 glucagon No 1 mg, Memoria - Route: IM, l 13:02: Drug form: PDR/INJ, PRN, Dosing Weight 102.273, kg, PRN Blood Glucose Results, Start date: 09/26/21 8:02:00 CDT, Duration: 30 day, Stop date: 10/26/21 8:01:00 CDT, 0 succinylcho No Route: IV, Memoria line (ANES) 5- Drug form: l 12:51: INJ, ONCE, Stop date: 09/26/21 7:51:00 CDT ceFAZolin No Route: IV, Me moria (ANES) 5- Drug form: l 12:46: INJ, ONCE, Stop date: 09/26/21 7:46:00 CDT rocuronium No Route: IV, M emoria (ANES) 5-26 Drug form: l 12:46: INJ, ONCE, Stop date: 09/26/21 7:46:00 CDT fentaNYL No Route: IV, Mem oria (ANES) 5-26 Drug form: l 12:41: INJ, ONCE, [place] 00 Stop date: 09/26/21 7:41:00 CDT ketAMINE No Route: IV, Mem oria (ANES) 5-26 Drug form: l 12:41: INJ, ONCE, [place] Stop date: 09/26/21 7:41:00 CDT Isolyte S No Route: IV, Me moria PH 7.4 5-26 Total l (ANES) 1000 12:41: Volume: Her navarrete mL 00 1,000, Start date: 09/26/21 7:41:00 CDT, Stop date: 09/26/21 8:41:00 CDT Isolyte S No Route: IV, Me moria PH 7.4 5-26 Total l (ANES) 500 12:41: Volume: Herm kim mL 00 500, Start date: 09/26/21 7:41:00 CDT, Stop date: 09/26/21 8:41:00 CDT midazolam No Route: IV, Me moria (ANES) 5-26 Drug form: l 12:34: SOLN, [place] 00 ONCE, Stop date: 09/26/21 7:34:00 CDT fentaNYL No 25 Memoria 5-26 microgram, l 12:19: Route: [place] 00 IVP, ONCE, Dosing Weight 102.273, kg, Priority: STAT, Start date: 09/26/21 7:19:00 CDT, Stop date: 09/26/21 7:19:00 CDT Sodium No Route: IV, Memor ia Chloride 5-26 Total l 0.9% IV 12:05: Volume: Sb (ANES) 1000 00 1,000, mL Start date: 09/26/21 7:05:00 CDT, Stop date: 09/26/21 8:05:00 CDT Saline No Notes: Memoria Flush 0.9% 5-26 (Same as: l 11:43: BD Sb 00 Posiflush) ustekinumab No 90mg Inject 90 [facility] (STELARA) 5-06 05-[address] 90 mg/mL 10:05: 00:00 the skin. Hos [facility] injection 33 :00 l Stelara 90 2020- No MAINTENANC [facility] mg/mL 09-06 E: INJECT st injection 00:00: 04:59 1 SYRINGE [facility] 00 :00 SUBCUTANEO l USLY EVERY 8 WEEKS. REFRIGERAT E. DO NOT FREEZE. SUMAtriptan 2019-05 Yes 50mg Take 50 mg [facility] (IMITREX) 06-[address] 50 MG 13:29: once as Hospita tablet 56 needed. l May repeat in 2 hours if unresolved . Do not exceed 200 mg in 24 hours. SUMAtriptan 2019-05 Yes 50mg Take 50 mg [facility] (IMITREX) 06-[address] 50 MG 13:29: once as Hospita tablet 56 needed. l May repeat in 2 hours if unresolved . Do not exceed 200 mg in 24 hours. sodium,pota 2019-05 Yes [id number] Use as per Hebert eubanks, 2- Dr. Arredondo st sulfates 00:00: [facility] (Suprep 00 pre-printe l Bowel Prep d Kit) instructio 17.5-3.13-1 ns .6 gram recon soln sodium,pota 2019-05 Yes [id number] Use as per mag Jesse 2- Dr. Arredondo st sulfates 00:00: [facility] (Suprep 00 pre-printe l Bowel Prep d Kit) instructio 17.5-3.13-1 ns .6 gram recon soln pantoprazol 2019-05- No [id number] 40mg QD Take 1 [facility] 06-0402 tablet (40 st (PROTONIX) 00:00: 05:59 mg total) H ospita 40 MG EC 00 :00 by mouth l tablet daily for 90 days. ALPRAZolam 0 Yes .5mg Take 0.5 [facility] (XANAX) 0.5 8-[address] MG tablet 12:50: mouth as [facility] 16 needed for l anxiety. ALPRAZolam 2019-0 Yes .5mg Take 0.5 [facility] (XANAX) 0.5 8-[address] MG tablet 12:50: mouth as [facility] 16 needed for l anxiety. zolpidem 2020-0 Yes 10mg QD Take 10 mg [facility] (AMBIEN) 10 8-[address] mg tablet 12:49: nightly as Ho spita 52 needed for l sleep. zolpidem 2020-0 Yes 10mg QD Take 10 mg [facility] (AMBIEN) 10 8-[address] mg tablet 12:49: nightly as Ho spita 52 needed for l sleep. FLUoxetine 2020-0 Yes 20mg QD Take 20 mg M [facility] (PROzac) 20 8-[address] MG capsule 12:49: daily. Hospi ta 27 l FLUoxetine 2020-0 Yes 20mg QD Take 20 mg M [facility] (PROzac) 20 8-[address] MG capsule 12:49: daily. Hospi ta 27 l acetaminoph 2020-0 Yes 325mg Take 325 M ethodi en 8-[address] (TYLENOL) 12:48: mouth as [facility]osp [facility] 325 MG 42 needed for l tablet fever. erenumab-ao 2020-0 Yes 70mg Q28D Inject 70 M ethodi oe (AIMOVIG 8-[address] AUTOINJECTO 12:48: the skin Ho spita R, 2 PACK,) 42 every 28 l 70 mg/mL days. syringe acetaminoph 2020-0 Yes 325mg Take 325 M ethodi en 8-[address] (TYLENOL) 12:48: mouth as [facility]osp [facility] 325 MG 42 needed for l tablet fever. erenumab-ao 2020-0 Yes 70mg Q28D Inject 70 M ethodi oe (AIMOVIG 8-[address] AUTOINJECTO 12:48: the skin Ho spita R, 2 PACK,) 42 every 28 l 70 mg/mL days. syringe ALPRAZolam 2020-0 Yes Fear of .5mg Take 1 Un yuinor (Xanax) 0.5 6-04 other tablet ity o f mg tablet 00:00: medical (0.5 mg) [place] 00 care by mouth MD See Admin Anderso Instructio n ns. Take Cancer when Center directed by MRI staff. May repeat x 1 dose, if needed. ustekinumab 2020-0 Yes 90mg Inject 90 U nivers (STELARA) 5-27 mg under ity of 90 mg/mL 09:53: the skin [place] injection 45 every 3 MD (three) Korina jacobson. n Every 8 Cancer weeks Center AIMOVIG Yes 70mg Inject 70 Unive rs AUTOINJECTO 5-14 mg as ity of R 70 mg/mL 00:00: directed Real as atIn 00 every 30 (thirty) [facility] SUMAtriptan Yes 1{tbl} Take 1 Un yunior (IMITREX) 5-01 tablet by ity o f 100 mg 00:00: mouth as [place] tablet 00 needed. MD Korina [facility] gabapentin 2018-05 Yes 1{tbl} Take 1 Uni vers (NEURONTIN) 1-01 tablet by ity of 600 mg 00:00: mouth [place] tablet 00 daily. MD Korina herring [facility] topiramate 2017-05 Yes 50mg QD 50 mg [facility] (TOPAMAX) 0-[address] 25 MG 00:00: Hospita tablet 00 l topiramate 2017-05 Yes 50mg QD 50 mg [facility] (TOPAMAX) 0-[address] 25 MG 00:00: Hospita tablet 00 l SUMAtriptan Yes 100mg Take [address] (IMITREX) 7-23 mg by [facility] 100 MG 16:11: mouth once Medic al tablet 10 as needed [facility] topiramate Yes 25mg QD Take [address] (TOPAMAX) 7-23 by mouth [facility] 25 MG 16:11: daily. Medical tablet 10 [place] ALPRAZolam Yes .25mg Take 0.[address] (XANAX) 7-23 mg by [facility] 0.25 MG 16:11: mouth Medical tablet 10 every Center night as needed for Anxiety. levonorgest Yes 1{each} [address] [facility] 7-23 Intrauteri [facility] (MIRENA) 20 16:11: ne route Me dical mcg/24 hr 10 once. [place] (5 years) IUD promethazin Yes 25mg Take [address] [facility] 7-23 by mouth [facility] (PHENERGAN) 16:11: every 6 Med ical 25 MG 10 (six) Center tablet hours as needed for Nausea. SUMAtriptan Yes 100mg Take [address] (IMITREX) 7-23 mg by [facility] 100 MG 16:11: mouth once Medic al tablet 10 as needed [facility] topiramate 2018-0 Yes 25mg QD Take [address] (TOPAMAX) 7-23 by mouth [facility] 25 MG 16:11: daily. Medical tablet 10 [place] ALPRAZolam 0 Yes .25mg Take 0.[address] (XANAX) 7-23 mg by [facility] 0.25 MG 16:11: mouth Medical tablet 10 every Center night as needed for Anxiety. levonorgest 2018-0 Yes 1{each} [address] [facility] 7-23 Intrauteri [facility] (MIRENA) 20 16:11: ne route Me dical mcg/24 hr 10 once. [place] (5 years) IUD ranitidine 2017-0 Yes 150mg Take [address] (ZANTAC) 7-23 mg by [facility] 150 MG 16:11: mouth as Medical tablet 10 needed for Center Heartburn. predniSONE 0 Yes 20mg QD Take [address] (DELTASONE) 7-23 by mouth [facility] 20 MG 16:11: daily. Medical tablet 10 [place] ustekinumab 0 Yes 90mg Inject [address] (STELARA) 7-23 mg [facility] 90 mg/mL 16:11: subcutaneo Med ical Syrg 10 usly. [place] sertraline 0 Yes 50mg QD Take [address] (ZOLOFT) 50 7-23 by mouth Luke [facility] MG tablet 16:11: daily. Medica l 10 [place] ranitidine 0 Yes 150mg Take [address] (ZANTAC) 7-23 mg by [facility] 150 MG 16:11: mouth as Medical tablet 10 needed for Center Heartburn. predniSONE 2018-0 Yes 20mg QD Take [address] (DELTASONE) 7-23 by mouth Luke [facility] 20 MG 16:11: daily. Medical tablet 10 [place] ustekinumab 20180 Yes 90mg Inject [address] (STELARA) 7-23 mg [facility] 90 mg/mL 16:11: subcutaneo Med ical Syrg 10 usly. [place] sertraline 0 Yes 50mg QD Take [address] (ZOLOFT) 50 7-23 by mouth Luke s MG tablet 16:11: daily. Medica l 10 Center promethazin 0 Yes 25mg Take [address] [facility] [facility] 7-23 by mouth [facility] (PHENERGAN) 16:11: every 6 Med ical 25 MG 10 (six) Center tablet hours as needed for Nausea. topiramate Yes 2{tbl} Take 2 Uni vers (Topamax) 6-19 tablets by ity of 25 mg 00:00: mouth [place] tablet 00 daily. MD [facility] Vital Signs Vital Name Observation Time Observation Value Comments Source Height 2020-11-09 04:35:00 160.02 CM Weight 2020-11-09 04:35:00 87.81 KG Height 2020-10-31 11:41:00 160.02 CM Weight 2020-10-31 11:41:00 83.91 KG Weight 2020-07-27 04:24:00 89.81 KG Height 2020-07-27 04:24:00 160.02 CM Height 2020-07-19 08:41:00 160.02 CM Weight 2020-07-19 08:41:00 88.45 KG Heart Rate 2021-10-13 17:21:14 [facility] Respitory Rate 2021-10-13 17:21:14 [facility]ori al Sb Systolic (mm Hg) 2021-10-13 17:21:06 Gerry rial [place] Diastolic (mm Hg) 2021-10-13 17:21:06 Mem orial Sb Heart Rate 2021-10-13 17:21:06 [facility] Temperature Oral (F) 2021-10-13 17:20:59 97.9 F [facility] [place] Heart Rate 2021-10-13 13:08:37 [facility]b Respitory Rate 2021-10-13 13:08:37 Memori al Sb Systolic (mm Hg) 2021-10-13 13:08:33 Gerry rial Sb Diastolic (mm Hg) 2021-10-13 13:08:33 Mem orial Sb Temperature Oral (F) 2021-10-13 13:08:22 98.9 F [facility] [place] Respitory Rate 2021-10-13 08:33:01 Memori al [place] Temperature Oral (F) 2021-10-13 08:32:54 98.1 F [facility] [place] Systolic (mm Hg) 2021-10-13 08:32:50 Gerry rial Sb Diastolic (mm Hg) 2021-10-13 08:32:50 Mem orial [place] Height 2021-10-08 07:24:00 160.02 cm [facility] [place] Weight 2021-10-08 07:24:00 [facility] [place] BMI Calculated 2021-10-08 07:24:00 Memori al [place] Height 2021-10-08 01:58:00 160.02 cm [facility] [place] Weight 2021-10-08 01:58:00 [facility] Height 2021-10-07 18:02:00 160.02 cm [facility] [place] BMI Calculated 2021-10-07 18:02:00 Memori al Sb Weight 2021-10-07 18:02:00 [facility] [place] Heart Rate 2021-10-04 00:50:04 [facility]b Respitory Rate 2021-10-04 00:50:04 Memori al Sb Systolic (mm Hg) 2021-10-04 00:49:58 Gerry rial Sb Diastolic (mm Hg) 2021-10-04 00:49:58 Mem orial [place] Heart Rate 2021-10-04 00:49:58 [facility] Sb Temperature Oral (F) 2021-10-04 00:49:55 99.1 F [facility] Heart Rate 2021-10-03 20:52:31 [facility] [place] Respitory Rate 2021-10-03 20:52:31 Memori al Sb Systolic (mm Hg) 2021-10-03 20:52:27 Gerry rial [place] Diastolic (mm Hg) 2021-10-03 20:52:27 Mem orial Sb Temperature Oral (F) 2021-10-03 20:51:49 98.5 F [facility] [place] Respitory Rate 2021-10-03 16:57:43 Memori al [place] Systolic (mm Hg) 2021-10-03 16:57:36 Gerry rial Sb Diastolic (mm Hg) 2021-10-03 16:57:36 Mem orial Sb Temperature Oral (F) 2021-10-03 12:41:44 97.8 F [facility] [place] Height 2021-10-02 13:00:00 170.18 cm [facility] [place] BMI Calculated 2021-10-02 13:00:00 [facility] al Sb Weight 2021-10-02 13:00:00 [facility] Heart Rate 2021-09-30 08:41:29 [facility] [place] Systolic (mm Hg) 2021-09-30 08:41:24 Gerry rial [place] Diastolic (mm Hg) 2021-09-30 08:41:24 Mem orial Sb Heart Rate 2021-09-30 08:41:24 [facility]b Heart Rate 2021-09-30 08:41:14 [facility] [place] Respitory Rate 2021-09-30 08:41:14 Memori al [place] Systolic (mm Hg) 2021-09-30 05:15:00 Gerry rial Sb Diastolic (mm Hg) 2021-09-30 05:15:00 Mem orial [place] Respitory Rate 2021-09-30 04:38:22 Memori al [place] Systolic (mm Hg) 2021-09-30 04:38:18 Gerry rial [place] Diastolic (mm Hg) 2021-09-30 04:38:18 Mem orial [place] Respitory Rate 2021-09-30 00:22:21 [facility] [place] Height 2021-09-29 23:40:00 170.18 cm [facility] Weight 2021-09-29 23:40:00 [facility] [place] BMI Calculated 2021-09-29 23:40:00 [facility] [place] Temperature Oral (F) 2021-09-29 21:33:38 99.5 F [facility] Temperature Oral (F) 2021-09-29 17:16:28 96.6 F [facility] [place] Temperature Oral (F) 2021-09-29 08:17:46 98 F [facility] [place] Height 2021-09-26 11:41:00 170.18 cm [facility] BMI Calculated 2021-09-26 11:41:00 [facility] Weight 2021-09-26 11:41:00 [facility] Procedures Procedure Date / Time Performed Performing Clinician Sourc e REPOS RT TIBIA IF DEVC 2020-11-09 00:00:00 [facility] SUPPL RT TARSAL JOINT 2020-07-27 00:00:00 [facility] AUTO SUB OPN Center Plan of Care Planned Activity Planned Date Details Comments Source Future Scheduled 2023-02-27 COVID-19 VACCINE (#1) [facility] Test 02:46:57 [code = COVID-19 VACCINE (#1)] Future Scheduled 2023-02-27 Screening for [facility] Test 02:46:57 malignant neoplasm of cervix (procedure) [code = 323102735] Future Scheduled 2023-02-27 BREAST CANCER [facility] Test 02:46:57 SCREENING [code = BREAST CANCER SCREENING] Future Scheduled 2023-02-27 [facility] 02:46:57 (#1) [code = INFLUENZA VACCINE (#1)] Future Scheduled 2021-11-06 COVID-19 Vaccination [facility] Test 06:50:27 (#1) [code = COVID-19 [facility] (#1)] Center Future Scheduled 2021-06-04 [facility] 13:12:17 [code = INFLUENZA VACCINE] Future Scheduled 2021-06-04 COVID-19 VACCINE (1) [facility] Test 13:12:17 [code = COVID-19 VACCINE (1)] Future Scheduled 2021-06-04 Hepatitis C screening [facility] [place] [place] Test 13:12:17 (procedure) [code = [id number]] Future Scheduled 2021-06-04 Screening for [facility] Test 13:12:17 malignant neoplasm of cervix (procedure) [code = [id number]] Encounters Start End Encounter Admission Attending Care Care Encounter Source Date/Time Date/Time Type Type Clinicians Facility Department ID 2022-02-17 Outpatient [facility] [id number] [place] 12:05:35 [id number] [facility] 2021-11-07 Outpatient [facility] [id number] [place] 02:53:35 [id number] [facility] 2021-11-06 Outpatient [facility] [id number] [place] 06:37:33 [id number] [facility] 2021-10-25 Outpatient [facility] [id number] [place] 09:40:18 [id number] [facility] 2021-10-21 Outpatient [facility] [id number] [place] 12:49:38 [id number] [facility] 2021-10-09 Outpatient [facility] [id number] [place] 07:31:04 [id number] [facility] 2021-10-07 Outpatient [facility] [id number] [place] 10:10:18 [id number] [facility] 2021-10-04 Outpatient [facility] [id number] [place] 07:06:33 [id number] [facility] 2021-10-03 Outpatient [facility] [id number] [place] 16:08:28 [id number] [facility] 2021-10-01 Outpatient [facility] [id number] [place] 06:49:50 [id number] [facility] 2021-11-08 2021-11-08 Outpatient [facility] [id number] [place] 09:45:00 09:45:00 [facility] 2021-10-07 2021-10-13 Inpatient Formerly [facility] [id number] Memoria 17:36:13 21:56:00 meredith Basurto 00 [facility] 2021-10-07 2021-10-13 Outpatient Gunnar, [facility] [id number] 12:36:13 16:56:00 Rondel Rodríguez 00 2021-10-07 2021-10-13 Outpatient Gunnar, [facility] [id number] 12:36:13 16:56:00 Rondel Rodríguez 00 2021-10-11 2021-10-11 Outpatient [facility] [id number] [place] 09:30:00 09:30:00 [facility] 2021-10-10 2021-10-10 Outpatient PUZIO, [facility] [id number] [place] 11:45:00 11:45:00 [facility] 2021-10-08 2021-10-08 Outpatient PUZIO, [facility] [id number] [place] 05:00:00 05:00:00 [facility] 2021-09-26 2021-10-04 Inpatient nullFlavo [facility] [id number] Memoria 11:41:00 01:30:00 [facility] 67 [facility] 2021-09-26 2021-10-03 Outpatient Cuauhtemoc [facility] [id number] 06:41:00 20:30:00 Jose Callaway 67 2021-09-26 2021-09-26 Outpatient CUAUHTEMOC [facility] [id number] [place] 10:00:00 10:00:00 JOSE [facility] 2021-09-26 2021-09-26 Outpatient Cuauhtemoc [facility] [id number] 06:41:00 06:41:00 Jose Callaway 65 2021-01-01 2021-01-01 Telephone [place], 1.2.840.1 [id number] Methodi 00:00:00 00:00:[id number] 3.430.2.7 Hospit a .3.737785 l .8 2020-11-09 2020-11-09 Outpatient [facility] [id number] [place] 04:29:00 08:03:00 KEVIN [facility] 2020-09-06 2020-09-06 Telephone [place]reate, 1.2.840.1 [id number] Methodi 00:00:00 00:00:00 [place] [id number] 3.430.2.7 Hospit a .3.348768 l .8 2020-09-06 2020-09-06 Refill Gamez, 1.2.840.1 [id number] Methodi 00:00:00 00:00:00 Maria Elena Rubin. 72746.1.[address] 3.430.2.7 Hospit a .3.797314 l .8 2020-07-27 2020-07-27 Outpatient Shailesh [facility] [id number] [place] 04:27:00 07:30:00 KEVIN [facility] 2020-04-19 2020-04-19 Outpatient R [facility] [id number] [facility] 15:00:00 15:00:00 [facility] 2019-12-28 2019-12-28 Outpatient [facility] [id number] [place] 00:00:00 00:00:00 MARIA ELENA Honeycutt6 [facility] 2019-09-16 2019-09-16 Outpatient ANDERSON MAGALLANES [facility] [id number] 23:29:22 23:29:22 VERITO herring 2019-09-16 2019-09-16 Outpatient ANDERSON MAGALLANES [facility] [id number] 23:29:21 23:29:21 VERITO Mckay o n 2019-09-16 2019-09-16 Outpatient ANDERSON MAGALLANES [facility] [id number] 23:29:20 23:29:20 VERIOT Mckay o n 2019-06-29 2019-06-29 Outpatient [facility] [id number] [place] 00:00:00 00:00:00 MARIA ELENA [place] Method i [facility] Results Test Description Test Time Test Comments Results Result Comments Source CHEM PANEL 2021-10-13 11:09:00 Test Item Value Reference Range Interpretation Comme nts Glucose Lvl (test code = Glucose Lvl) 94 70-99 [facility] [id number] 11:09:00 Test Item Value Reference Range Interpretation Comments BUN (test code = BUN) 8 7-22 [facility] [id number] 11:09:00 Test Item Value Reference Range Interpretation Comments Creatinine Lvl (test code = Creatinine 0.52 0.50-1.40 Lvl) [facility] [id number] 11:09:00 Test Item Value Reference Range Interpretation Comments Sodium Lvl (test code = Sodium Lvl) 139 135-145 [facility] [id number] 11:09:00 Test Item Value Reference Range Interpretation Comments Potassium Lvl (test code = Potassium 4.2 3.5-5.1 Lvl) [facility] [id number] 11:09:00 Test Item Value Reference Range Interpretation Comments Chloride Lvl (test code = Chloride Lvl) 106 95-109 [facility] [id number] 11:09:00 Test Item Value Reference Range Interpretation Comments CO2 (test code = CO2) 28 24-32 [facility] [id number] 11:09:00 Test Item Value Reference Range Interpretation Comments Calcium Lvl (test code = Calcium Lvl) 8.1 8.5-10.5 [facility] [id number] 11:09:00 Test Item Value Reference Range Interpretation Comments AGAP (test code = AGAP) 9.2 10.0-20.0 [facility] [id number] 11:09:00 Test Item Value Reference Range Interpretation Comments eGFR (test code = eGFR) 117 [facility]UhzgvblGJUNWQCUVC5642-44-90 11:09:00 Test Item Value Reference Range Interpretation Comments WBC (test code = WBC) 5.7 3.7-10.4 [facility] HospitalNcvzoqcAQSQCUOBIO4898-83-15 11:09:00 Test Item Value Reference Range Interpretation Comments RBC (test code = RBC) 2.57 4.20-5.40 [facility] HospitalRdgwlbkHCLPYHMUPA4939-43-55 11:09:00 Test Item Value Reference Range Interpretation Comments Hgb (test code = Hgb) 7.4 12.0-16.0 [facility] HospitalXsxwffkXPGLMUVWTK4371-66-44 11:09:00 Test Item Value Reference Range Interpretation Comments Hct (test code = Hct) 22.7 36.0-48.0 [facility] HospitalWzwrijnAMIVJPCKYQ3884-95-48 11:09:00 Test Item Value Reference Range Interpretation Comments MCV (test code = MCV) 88.2 80.0-98.0 [facility] HospitalVsdzdxcUNDDEVHZFS2233-39-89 11:09:00 Test Item Value Reference Range Interpretation Comments MCH (test code = MCH) 28.7 pg 27.0-31.0 [facility] HospitalBsszxasUNFIIIYIJS3214-68-30 11:09:00 Test Item Value Reference Range Interpretation Comments MCHC (test code = MCHC) 32.5 32.0-36.0 [facility] HospitalBmspawsFIGZPUFGGM6312-84-65 11:09:00 Test Item Value Reference Range Interpretation Comments RDW (test code = RDW) 17.3 11.5-14.5 [facility] HospitalUfyoqcdKICAISSUQA3953-22-99 11:09:00 Test Item Value Reference Range Interpretation Comments Platelet (test code = Platelet) 700 133-450 [facility] HospitalYwnhjndOEQFNXHALV1380-58-65 11:09:00 Test Item Value Reference Range Interpretation Comments MPV (test code = MPV) 7.0 7.4-10.4 [facility] HospitalIlzuzirZABBRVZFZB0382-46-43 11:09:00 Test Item Value Reference Range Interpretation Comments Segs (test code = Segs) 45.7 45.0-75.0 [facility] HospitalLmfwfayNNIKOSUIKJ1818-24-54 11:09:00 Test Item Value Reference Range Interpretation Comments Lymphocytes (test code = Lymphocytes) 37.4 20.0-40.0 [facility] HospitalJjjcsizZHDZSYZAOC0326-17-71 11:09:00 Test Item Value Reference Range Interpretation Comments Monocytes (test code = Monocytes) 7.5 2.0-12.0 [place] 016522-06-12 11:09:00 Test Item Value Reference Range Interpretation Comments Eosinophils (test code = Eosinophils) 7.0 <=4.0 [place] 016522-06-12 11:09:00 Test Item Value Reference Range Interpretation Comments Basophils (test code = Basophils) 2.4 <=1.0 [place] 016522-06-12 11:09:00 Test Item Value Reference Range Interpretation Comments Neutrophils # (test code = Neutrophils 2.6 1.5-8.1 #) [facility] HospitalPmzzekvWCPAHCLNZV9374-29-44 11:09:00 Test Item Value Reference Range Interpretation Comments Lymphocytes # (test code = Lymphocytes 2.1 1.0-5.5 #) [facility] HospitalBwsbeslQLXDMSLGLU1764-70-79 11:09:00 Test Item Value Reference Range Interpretation Comments Monocytes # (test code = Monocytes #) 0.4 <=0.8 [place] [address]-06-12 11:09:00 Test Item Value Reference Range Interpretation Comments Eosinophils # (test code = Eosinophils 0.4 <=0.5 #) [facility] HospitalMfsdegtUNGGCNKZYR7200-51-67 11:09:00 Test Item Value Reference Range Interpretation Comments Basophils # (test code = Basophils #) 0.1 <=0.2 [facility]2022-06-10 06:17:00 Test Item Value Reference Range Interpretation Comments Glucose Lvl (test code = Glucose Lvl) 119 70-99 [facility]2022-06-10 06:17:00 Test Item Value Reference Range Interpretation Comments BUN (test code = BUN) 8 7-22 [facility]2022-06-10 06:17:00 Test Item Value Reference Range Interpretation Comments Creatinine Lvl (test code = Creatinine 0.46 0.50-1.40 Lvl) [facility]2022-06-10 06:17:00 Test Item Value Reference Range Interpretation Comments Sodium Lvl (test code = Sodium Lvl) 140 135-145 [facility]2022-06-10 06:17:00 Test Item Value Reference Range Interpretation Comments Potassium Lvl (test code = Potassium 4.7 3.5-5.1 Lvl) [place] 787552-06-10 06:17:00 Test Item Value Reference Range Interpretation Comments Chloride Lvl (test code = Chloride Lvl) 108 95-109 [place] 787552-06-10 06:17:00 Test Item Value Reference Range Interpretation Comments CO2 (test code = CO2) 28 24-32 [place] 787552-06-10 06:17:00 Test Item Value Reference Range Interpretation Comments AGAP (test code = AGAP) 8.7 10.0-20.0 [place] [address]-06-10 06:17:00 Test Item Value Reference Range Interpretation Comments Calcium Lvl (test code = Calcium Lvl) 7.6 8.5-10.5 [place] 787552-06-10 06:17:00 Test Item Value Reference Range Interpretation Comments eGFR (test code = eGFR) 122 [place] 016522-06-10 06:17:00 Test Item Value Reference Range Interpretation Comments WBC (test code = WBC) 6.4 3.7-10.4 [place] 016522-06-10 06:17:00 Test Item Value Reference Range Interpretation Comments RBC (test code = RBC) 2.61 4.20-5.40 [place] 016522-06-10 06:17:00 Test Item Value Reference Range Interpretation Comments Hgb (test code = Hgb) 7.7 12.0-16.0 [place] [address]-06-10 06:17:00 Test Item Value Reference Range Interpretation Comments Hct (test code = Hct) 22.8 36.0-48.0 [place] [address]-06-10 06:17:00 Test Item Value Reference Range Interpretation Comments MCV (test code = MCV) 87.4 80.0-98.0 [place] [address]-06-10 06:17:00 Test Item Value Reference Range Interpretation Comments MCH (test code = MCH) 29.3 pg 27.0-31.0 [place] [address]-06-10 06:17:00 Test Item Value Reference Range Interpretation Comments MCHC (test code = MCHC) 33.5 32.0-36.0 [place] [address]-06-10 06:17:00 Test Item Value Reference Range Interpretation Comments RDW (test code = RDW) 17.1 11.5-14.5 [facility] HospitalPdnxuciUVQVKOAKTF4719-44-17 06:17:00 Test Item Value Reference Range Interpretation Comments Platelet (test code = Platelet) 417 821-414 [facility] HospitalJpilivqKMKYDXKLHO6322-00-53 06:17:00 Test Item Value Reference Range Interpretation Comments MPV (test code = MPV) 7.7 7.4-10.4 [facility] HospitalGlurylvBRAAFIQSBF8917-63-06 06:17:00 Test Item Value Reference Range Interpretation Comments Segs (test code = Segs) 75.2 45.0-75.0 [facility] HospitalZcoabglDUABVEFYVD1995-55-73 06:17:00 Test Item Value Reference Range Interpretation Comments Lymphocytes (test code = Lymphocytes) 18.2 20.0-40.0 [facility] HospitalXhkaaaxFGVBDNQZDY2441-14-96 06:17:00 Test Item Value Reference Range Interpretation Comments Monocytes (test code = Monocytes) 5.4 2.0-12.0 [facility] HospitalGxtfdoqLIWSYXYFPA1217-46-34 06:17:00 Test Item Value Reference Range Interpretation Comments Eosinophils (test code = Eosinophils) 0.3 <=4.0 [facility] HospitalKkwvjuoIUDTFQGKPJ4115-66-12 06:17:00 Test Item Value Reference Range Interpretation Comments Basophils (test code = Basophils) 0.9 <=1.0 [facility] HospitalYbudlytQVSXFEKTAL7644-85-16 06:17:00 Test Item Value Reference Range Interpretation Comments Neutrophils # (test code = Neutrophils 4.8 1.5-8.1 #) [facility] HospitalIdponvrFZQOTEWEOP5583-54-56 06:17:00 Test Item Value Reference Range Interpretation Comments Lymphocytes # (test code = Lymphocytes 1.2 1.0-5.5 #) [facility] HospitalBdjfjybBPQHFJTRTD5549-17-93 06:17:00 Test Item Value Reference Range Interpretation Comments Monocytes # (test code = Monocytes #) 0.3 <=0.8 [place] 016522-06-10 06:17:00 Test Item Value Reference Range Interpretation Comments Basophils # (test code = Basophils #) 0.1 <=0.2 [facility]2022-06-09 10:53:00 Test Item Value Reference Range Interpretation Comments Glucose Lvl (test code = Glucose Lvl) 79 70-99 [place] 787552-06-09 10:53:00 Test Item Value Reference Range Interpretation Comments BUN (test code = BUN) 9 7-22 [place] 787552-06-09 10:53:00 Test Item Value Reference Range Interpretation Comments Creatinine Lvl (test code = Creatinine 0.54 0.50-1.40 Lvl) [facility]2022-06-09 10:53:00 Test Item Value Reference Range Interpretation Comments Sodium Lvl (test code = Sodium Lvl) 140 135-145 [place] 787552-06-09 10:53:00 Test Item Value Reference Range Interpretation Comments Potassium Lvl (test code = Potassium 3.7 3.5-5.1 Lvl) [place] 787552-06-09 10:53:00 Test Item Value Reference Range Interpretation Comments Chloride Lvl (test code = Chloride Lvl) 107 95-109 [facility]2022-06-09 10:53:00 Test Item Value Reference Range Interpretation Comments CO2 (test code = CO2) 27 24-32 [place] 787552-06-09 10:53:00 Test Item Value Reference Range Interpretation Comments Calcium Lvl (test code = Calcium Lvl) 7.9 8.5-10.5 [facility]2022-06-09 10:53:00 Test Item Value Reference Range Interpretation Comments AGAP (test code = AGAP) 9.7 10.0-20.0 [facility]2022-06-09 10:53:00 Test Item Value Reference Range Interpretation Comments eGFR (test code = eGFR) 116 [place] 787552-06-08 09:56:00 Test Item Value Reference Range Interpretation Comments Magnesium Lvl (test code = Magnesium 2.3 1.8-2.4 Lvl) [place] 787552-06-08 09:56:00 Test Item Value Reference Range Interpretation Comments Phosphorus (test code = Phosphorus) 3.2 2.5-4.5 [place] 016522-06-08 09:56:00 Test Item Value Reference Range Interpretation Comments WBC (test code = WBC) 8.9 3.7-10.4 [place] 016522-06-08 09:56:00 Test Item Value Reference Range Interpretation Comments RBC (test code = RBC) 2.69 4.20-5.40 [facility] HospitalUggxnizAHCTKZGKIB7968-46-85 09:56:00 Test Item Value Reference Range Interpretation Comments Hgb (test code = Hgb) 7.9 12.0-16.0 [facility] HospitalTseijnsPUKUTXIRNP7078-18-94 09:56:00 Test Item Value Reference Range Interpretation Comments Hct (test code = Hct) 23.8 36.0-48.0 [facility] HospitalTcvylxwQJTKDYAYHG5627-23-89 09:56:00 Test Item Value Reference Range Interpretation Comments MCV (test code = MCV) 88.4 80.0-98.0 [facility] HospitalZledvktMDBVIBRLNZ2889-63-33 09:56:00 Test Item Value Reference Range Interpretation Comments MCH (test code = MCH) 29.3 pg 27.0-31.0 [facility] HospitalNixlpsuVSRVHMAJHM0049-43-83 09:56:00 Test Item Value Reference Range Interpretation Comments MCHC (test code = MCHC) 33.2 32.0-36.0 [facility] HospitalNyumzzlRCSRGOWEOT1966-14-07 09:56:00 Test Item Value Reference Range Interpretation Comments RDW (test code = RDW) 17.1 11.5-14.5 [facility] HospitalVkkzqigZFEMQZQWTO4222-53-65 09:56:00 Test Item Value Reference Range Interpretation Comments Platelet (test code = Platelet) 591 133450 [facility] HospitalNppxjabYEPUSRZKIG5142-29-41 09:56:00 Test Item Value Reference Range Interpretation Comments MPV (test code = MPV) 7.8 7.4-10.4 [place] 016522-06-08 09:56:00 Test Item Value Reference Range Interpretation Comments Segs (test code = Segs) 67.2 45.0-75.0 [place] 016522-06-08 09:56:00 Test Item Value Reference Range Interpretation Comments Lymphocytes (test code = Lymphocytes) 23.0 20.0-40.0 [place] 016522-06-08 09:56:00 Test Item Value Reference Range Interpretation Comments Monocytes (test code = Monocytes) 6.5 2.0-12.0 [place] 016522-06-08 09:56:00 Test Item Value Reference Range Interpretation Comments Eosinophils (test code = Eosinophils) 2.6 <=4.0 [place] [address]-06-08 09:56:00 Test Item Value Reference Range Interpretation Comments Basophils (test code = Basophils) 0.7 <=1.0 [facility] HospitalItzrcfkDSGVURUWZA2209-29-52 09:56:00 Test Item Value Reference Range Interpretation Comments Neutrophils # (test code = Neutrophils 6.0 1.5-8.1 #) [facility] HospitalRecnqvhUDBRQKRDER7672-88-26 09:56:00 Test Item Value Reference Range Interpretation Comments Lymphocytes # (test code = Lymphocytes 2.0 1.0-5.5 #) [facility] HospitalMdzgqozVMBKPZWDXA2659-02-11 09:56:00 Test Item Value Reference Range Interpretation Comments Monocytes # (test code = Monocytes #) 0.6 <=0.8 [facility] HospitalAacmgubBHQGVGXEYK7704-03-14 09:56:00 Test Item Value Reference Range Interpretation Comments Eosinophils # (test code = Eosinophils 0.2 <=0.5 #) [facility] HospitalWpckzwtNVVGTBEHZY7589-19-99 09:56:00 Test Item Value Reference Range Interpretation Comments Basophils # (test code = Basophils #) 0.[address] [facility]2022-06-08 09:56:00 Test Item Value Reference Range Interpretation Comments Ca Ion WB (test code = Ca Ion WB) 1.01 1.05-1.25 [facility]2022-06-08 09:56:00 Test Item Value Reference Range Interpretation Comments Ca Ion at pH 7.4 WB (test code = Ca Ion 1.00 1.05-1.25 at pH 7.4 WB) [facility]2022-06-07 21:56:00 Test Item Value Reference Range Interpretation Comments Ca Ion WB (test code = Ca Ion WB) 0.89 1.05-1.25 [facility]2022-06-07 21:56:00 Test Item Value Reference Range Interpretation Comments Ca Ion at pH 7.4 WB (test code = Ca Ion 0.87 1.05-1.25 at pH 7.4 WB) [facility] [id number] 16:30:00 Test Item Value Reference Range Interpretation Comments RBC product (test code Product available = RBC product) (10/08/21 11:30 AM) [facility] [id number] 15:17:00 Test Item Value Reference Range Interpretation Comments ABO/Rh (test code = ABO/Rh) B POS [facility] [id number] 15:17:00 Test Item Value Reference Range Interpretation Comments Antibody Scrn (test Negative (10/08/21 10:17 code = Antibody Scrn) AM) [facility]PDHIGLNFCI6890[facility]-60 15:17:00 Test Item Value Reference Range Interpretation Comments Vancomycin AUC (test code = Vancomycin 19.5 AUC) [facility]2022-06-07 10:37:00 Test Item Value Reference Range Interpretation Comments Magnesium Lvl (test code = Magnesium 1.7 1.8-2.4 Lvl) [facility]2022-06-07 10:37:00 Test Item Value Reference Range Interpretation Comments Phosphorus (test code = Phosphorus) 3.4 2.5-4.5 [place] 58228022-06-07 10:37:00 Test Item Value Reference Range Interpretation Comments Aldosterone (test code = Aldosterone) 6 [place] 58228022-06-07 10:37:00 Test Item Value Reference Range Interpretation Comments Renin Activity (test code = Renin 2.52 Activity) [place] 58228022-06-07 10:37:00 Test Item Value Reference Range Interpretation Comments Aldos/Renin Ratio (test code = 2.4 Aldos/Renin Ratio) [facility] HospitalOtlymwhMEWPZNIVYY1460-54-61 10:37:00 Test Item Value Reference Range Interpretation Comments Eosinophils # (test code = Eosinophils 0.5 <=0.5 #) [facility]2022-06-06 21:11:00 Test Item Value Reference Range Interpretation Comments Procalcitonin Lvl (test code = 0.11 <=0.10 Procalcitonin Lvl) [facility] HospitalUmevmrxELCSZAOFCO8630-08-14 21:11:00 Test Item Value Reference Range Interpretation Comments PT (test code = PT) 13.2 s 12.0-14.7 [facility] HospitalMiskpyeKDLLCKZUVP5200-26-28 21:11:00 Test Item Value Reference Range Interpretation Comments INR (test code = INR) 1.01 1 0.85-1.17 [facility] HospitalZprluxaYJXFACGCHY0674-35-44 21:11:00 Test Item Value Reference Range Interpretation Comments PTT (test code = PTT) 24.9 s 22.9-35.8 [facility]HubabhtQGVIOPEEVF9377-76-26 20:08:00 Test Item Value Reference Range Interpretation Comments Coronavirus (COVID-19) Not Detected (10/07/21 SANTIAGO (test code = 3:08 PM) Coronavirus (COVID-19) SANTIAGO) [facility] AND [id number] 20:08:00 Test Item Value Reference Range Interpretation Comments UA Color (test code = Yellow (10/07/21 3:08 PM) UA Color) [facility] AND [id number] 20:08:00 Test Item Value Reference Range Interpretation Comments UA Turbidity (test code Slight *ABN*(10/07/21 = UA Turbidity) 3:08 PM) [facility] AND [id number] 20:08:00 Test Item Value Reference Range Interpretation Comments UA Spec Grav (test code = UA Spec 1.039 1 Grav) [facility] AND [id number] 20:08:00 Test Item Value Reference Range Interpretation Comments UA pH (test code = UA pH) 5.0 1 5.0-8.0 [facility] AND [id number] 20:08:00 Test Item Value Reference Range Interpretation Comments UA Protein (test code = UA Protein) 30 mg/dL [facility] AND [id number] 20:08:00 Test Item Value Reference Range Interpretation Comments UA Glucose (test code = UA Negative mg/dL Glucose) [facility] AND [id number] 20:08:00 Test Item Value Reference Range Interpretation Comments UA Ketones (test code = UA Trace mg/dL Ketones) [facility] AND [id number] 20:08:00 Test Item Value Reference Range Interpretation Comments UA Bili (test code = Small *ABN*(10/07/21 3:08 UA Bili) PM) [facility] AND [id number] 20:08:00 Test Item Value Reference Range Interpretation Comments UA Blood (test code = Negative (10/07/21 3:08 UA Blood) PM) [facility] AND [id number] 20:08:00 Test Item Value Reference Range Interpretation Comments UA Urobilinogen (test code = UA no gt 0.1-1.0 Urobilinogen) [facility] [id number] 20:08:00 Test Item Value Reference Range Interpretation Comments UA Nitrite (test code Negative (10/07/21 3:08 = UA Nitrite) PM) [facility] [id number] 20:08:00 Test Item Value Reference Range Interpretation Comments UA Leuk Est (test Negative (10/07/21 3:08 code = UA Leuk Est) PM) [facility] [place] [facility] [id number] 20:08:00 Test Item Value Reference Range Interpretation Comments UA Sq Epi (test code = UA Sq Occasional /LPF Epi) [facility] AND [id number] 20:08:00 Test Item Value Reference Range Interpretation Comments UA WBC (test code = UA WBC) 9 <=5 [facility] [place] [facility] [id number] 20:08:00 Test Item Value Reference Range Interpretation Comments UA RBC (test code = UA RBC) 1 <=2 [facility] [place] [facility] [id number] 20:08:00 Test Item Value Reference Range Interpretation Comments UA Bacteria (test code = UA Few /HPF Bacteria) [facility] AND [id number] 20:08:00 Test Item Value Reference Range Interpretation Comments UA Mucus (test code = UA Mucus) Few /LPF [facility]HS9302-[facility] 19:42:00 Test Item Value Reference Range Interpretation Comments Hep C Ab (test code = Hep C Ab) NON-REACTIVE [facility]QsltttiPOZNHEFPCT5912-06-10 19:42:00 Test Item Value Reference Range Interpretation Comments Hep Signal to Cut-Off (test code = Hep 0.01 1 Signal to Cut-Off) [facility] CenterLxbejhwPWPCAHEZFT9148-63-93 19:42:00 Test Item Value Reference Range Interpretation Comments CDC HIV 4th GEN (test Negative *NA*(10/07/21 code = CDC HIV 4th 2:42 PM) GEN) [facility]ann[facility] [id number] 19:29:00 Test Item Value Reference Range Interpretation Comments B/C Ratio (test code = B/C Ratio) 18 1 6-25 [facility] [id number] 19:29:00 Test Item Value Reference Range Interpretation Comments Total Protein (test code = Total 6.7 6.4-8.4 Protein) [facility]2022-06-06 19:29:00 Test Item Value Reference Range Interpretation Comments Albumin Lvl (test code = Albumin Lvl) 2.3 3.5-5.0 [facility]2022-06-06 19:29:00 Test Item Value Reference Range Interpretation Comments Globulin (test code = Globulin) 4.4 2.7-4.2 [place] 787552-06-06 19:29:00 Test Item Value Reference Range Interpretation Comments A/G Ratio (test code = A/G Ratio) 0.5 1 0.7-1.6 [place] 787552-06-06 19:29:00 Test Item Value Reference Range Interpretation Comments ALANINE AMINOTRANSFERASE (test code = 163 <=65 ALANINE AMINOTRANSFERASE) [facility]2022-06-06 19:29:00 Test Item Value Reference Range Interpretation Comments AST (test code = AST) 60 <=37 [place] 787552-06-06 19:29:00 Test Item Value Reference Range Interpretation Comments Alk Phos (test code = Alk Phos) 134 39-136 [facility]2022-06-06 19:29:00 Test Item Value Reference Range Interpretation Comments Bili Total (test code = Bili Total) 0.3 0.2-1.3 [facility]2022-06-06 19:29:00 Test Item Value Reference Range Interpretation Comments Lactic Acid Lvl (test code = Lactic 1.9 0.5-2.2 Acid Lvl) [facility] 19:29:00 Test Item Value Reference Range Interpretation Comments S Preg (test code = S Negative *NA*(10/07/21 Preg) 2:29 PM) [facility] HospitalLoexhhsWMCWAGEDRN7597-65-55 19:29:00 Test Item Value Reference Range Interpretation Comments Plt Morph (test code = Normal (10/07/21 2:29 PM) Plt Morph) [facility] HospitalVkksjnhXBMRQOAKCI2921-01-80 19:29:00 Test Item Value Reference Range Interpretation Comments Anisocyte (test code = 1+ *ABN*(10/07/21 2:29 Anisocyte) PM) [facility]2022-06-02 06:54:00 Test Item Value Reference Range Interpretation Comments Glucose Lvl (test code = Glucose Lvl) 108 70-99 [place] 787552-06-02 06:54:00 Test Item Value Reference Range Interpretation Comments BUN (test code = BUN) 6 7-22 [place] 787552-06-02 06:54:00 Test Item Value Reference Range Interpretation Comments Creatinine Lvl (test code = Creatinine 0.40 0.50-1.40 Lvl) [place] 787552-06-02 06:54:00 Test Item Value Reference Range Interpretation Comments Sodium Lvl (test code = Sodium Lvl) 138 135-145 [place] 787552-06-02 06:54:00 Test Item Value Reference Range Interpretation Comments Potassium Lvl (test code = Potassium 3.5 3.5-5.1 Lvl) [place] 787552-06-02 06:54:00 Test Item Value Reference Range Interpretation Comments Chloride Lvl (test code = Chloride Lvl) 112 95-109 [place] 787552-06-02 06:54:00 Test Item Value Reference Range Interpretation Comments CO2 (test code = CO2) 16 24-32 [place] 787552-06-02 06:54:00 Test Item Value Reference Range Interpretation Comments Calcium Lvl (test code = Calcium Lvl) 7.5 8.5-10.5 [place] 787552-06-02 06:54:00 Test Item Value Reference Range Interpretation Comments AGAP (test code = AGAP) 13.5 10.0-20.0 [place] 787552-06-02 06:54:00 Test Item Value Reference Range Interpretation Comments eGFR (test code = eGFR) 128 [place] 016522-06-02 06:54:00 Test Item Value Reference Range Interpretation Comments WBC (test code = WBC) 13.9 3.7-10.4 [place] [address]-06-02 06:54:00 Test Item Value Reference Range Interpretation Comments RBC (test code = RBC) 3.03 4.20-5.40 [place] [address]-06-02 06:54:00 Test Item Value Reference Range Interpretation Comments Hgb (test code = Hgb) 8.8 12.0-16.0 [place] [address]-06-02 06:54:00 Test Item Value Reference Range Interpretation Comments Hct (test code = Hct) 26.1 36.0-48.0 [facility] HospitalDxdypvdWBPKXFVWEA1509-63-63 06:54:00 Test Item Value Reference Range Interpretation Comments MCV (test code = MCV) 86.2 80.0-98.0 [place] 016522-06-02 06:54:00 Test Item Value Reference Range Interpretation Comments MCH (test code = MCH) 28.9 pg 27.0-31.0 [facility] HospitalHjkmphwPXVKSXKCPN4344-20-73 06:54:00 Test Item Value Reference Range Interpretation Comments MCHC (test code = MCHC) 33.6 32.0-36.0 [facility] HospitalMjvwsjiQLQEUJRESV1452-33-23 06:54:00 Test Item Value Reference Range Interpretation Comments RDW (test code = RDW) 16.4 11.5-14.5 [facility] HospitalZgnaiwtJOHANKGCIO0305-13-40 06:54:00 Test Item Value Reference Range Interpretation Comments Platelet (test code = Platelet) 394 133-450 [facility] HospitalMsiqwewQSTMSJRUEG9121-32-15 06:54:00 Test Item Value Reference Range Interpretation Comments MPV (test code = MPV) 8.0 7.4-10.4 [facility] HospitalHhbphltBSYEAEHEEI8104-59-55 06:54:00 Test Item Value Reference Range Interpretation Comments Neutrophils # (test code = Neutrophils 8.6 1.5-8.1 #) [facility] HospitalCpmeomlINXGWROSDB2404-48-99 06:54:00 Test Item Value Reference Range Interpretation Comments Lymphocytes # (test code = Lymphocytes 3.2 1.0-5.5 #) [place] [address]-06-02 06:54:00 Test Item Value Reference Range Interpretation Comments Monocytes # (test code = Monocytes #) 0.7 <=0.8 [place] [address]-06-02 06:54:00 Test Item Value Reference Range Interpretation Comments Eosinophils # (test code = Eosinophils 0.8 <=0.5 #) [place] 016522-06-02 06:54:00 Test Item Value Reference Range Interpretation Comments Segs (test code = Segs) 60.0 45.0-75.0 [place] 016522-06-02 06:54:00 Test Item Value Reference Range Interpretation Comments Bands (test code = Bands) 2.0 <=11.0 [place] [address]-06-02 06:54:00 Test Item Value Reference Range Interpretation Comments Lymphocytes (test code = Lymphocytes) 23.0 20.0-40.0 [place] 016522-06-02 06:54:00 Test Item Value Reference Range Interpretation Comments Monocytes (test code = Monocytes) 5.0 2.0-12.0 [place] [address]-06-02 06:54:00 Test Item Value Reference Range Interpretation Comments Eosinophils (test code = Eosinophils) 6.0 <=4.0 [place] [address]-06-02 06:54:00 Test Item Value Reference Range Interpretation Comments Metamyelocytes (test code = 1.0 <=1.0 Metamyelocytes) [place] [address]-06-02 06:54:00 Test Item Value Reference Range Interpretation Comments Myelocytes (test code = Myelocytes) 3.0 [place] [address]-06-02 06:54:00 Test Item Value Reference Range Interpretation Comments Atypical Lymphs (test code = Atypical 0.0 Lymphs) [place] 787552-06-01 23:39:00 Test Item Value Reference Range Interpretation Comments Glucose Lvl (test code = Glucose Lvl) 100 70-99 [facility]2022-06-01 23:39:00 Test Item Value Reference Range Interpretation Comments BUN (test code = BUN) 5 7-22 [facility]2022-06-01 23:39:00 Test Item Value Reference Range Interpretation Comments Creatinine Lvl (test code = Creatinine 0.40 0.50-1.40 Lvl) [facility]2022-06-01 23:39:00 Test Item Value Reference Range Interpretation Comments Sodium Lvl (test code = Sodium Lvl) 139 135-145 [place] 787552-06-01 23:39:00 Test Item Value Reference Range Interpretation Comments Potassium Lvl (test code = Potassium 2.9 3.5-5.1 Lvl) [place] 787552-06-01 23:39:00 Test Item Value Reference Range Interpretation Comments Chloride Lvl (test code = Chloride Lvl) 110 95-109 [place] 787552-06-01 23:39:00 Test Item Value Reference Range Interpretation Comments CO2 (test code = CO2) 16 24-32 [facility]2022-06-01 23:39:00 Test Item Value Reference Range Interpretation Comments AGAP (test code = AGAP) 15.9 10.0-20.0 [facility]2022-06-01 23:39:00 Test Item Value Reference Range Interpretation Comments Calcium Lvl (test code = Calcium Lvl) 7.5 8.5-10.5 [facility]2022-06-01 23:39:00 Test Item Value Reference Range Interpretation Comments eGFR (test code = eGFR) 128 [facility]2022-06-01 16:03:00 Test Item Value Reference Range Interpretation Comments Glucose Lvl (test code = Glucose Lvl) 99 70-99 [facility]2022-06-01 16:03:00 Test Item Value Reference Range Interpretation Comments BUN (test code = BUN) 6 - [facility]2022-06-01 16:03:00 Test Item Value Reference Range Interpretation Comments Creatinine Lvl (test code = Creatinine 0.39 0.50-1.40 Lvl) [facility]2022-06-01 16:03:00 Test Item Value Reference Range Interpretation Comments Sodium Lvl (test code = Sodium Lvl) 140 135-145 [facility]2022-06-01 16:03:00 Test Item Value Reference Range Interpretation Comments Potassium Lvl (test code = Potassium 3.0 3.5-5.1 Lvl) [facility]2022-06-01 16:03:00 Test Item Value Reference Range Interpretation Comments Chloride Lvl (test code = Chloride Lvl) 112 95-109 [facility]2022-06-01 16:03:00 Test Item Value Reference Range Interpretation Comments CO2 (test code = CO2) 12 -32 [facility]2022-06-01 16:03:00 Test Item Value Reference Range Interpretation Comments AGAP (test code = AGAP) 19.0 10.0-20.0 [facility]2022-06-01 16:03:00 Test Item Value Reference Range Interpretation Comments Calcium Lvl (test code = Calcium Lvl) 7.4 8.5-10.5 [facility]2022-06-01 16:03:00 Test Item Value Reference Range Interpretation Comments eGFR (test code = eGFR) 129 [facility]2022-06-01 16:03:00 Test Item Value Reference Range Interpretation Comments Magnesium Lvl (test code = Magnesium 1.9 1.8-2.4 Lvl) [facility]2022-06-01 16:03:00 Test Item Value Reference Range Interpretation Comments Phosphorus (test code = Phosphorus) 2.3 2.5-4.5 [facility] HospitalWgcornwFCKQJRCQCY1663-85-89 16:03:00 Test Item Value Reference Range Interpretation Comments WBC (test code = WBC) 12.8 3.7-10.4 [facility] HospitalLhpusciQZBFBJLIYZ5582-63-36 16:03:00 Test Item Value Reference Range Interpretation Comments RBC (test code = RBC) 2.97 4.20-5.40 [facility] HospitalJctepfnYTHRVBUFIN6231-25-44 16:03:00 Test Item Value Reference Range Interpretation Comments Hgb (test code = Hgb) 8.6 12.0-16.0 [facility] HospitalTqnbfsiMFSKFXPSDY5423-97-54 16:03:00 Test Item Value Reference Range Interpretation Comments Hct (test code = Hct) 25.6 36.0-48.0 [facility] HospitalScexisqVYUOPHSHXH4168-39-40 16:03:00 Test Item Value Reference Range Interpretation Comments MCV (test code = MCV) 86.2 80.0-98.0 [place] 016522-06-01 16:03:00 Test Item Value Reference Range Interpretation Comments MCH (test code = MCH) 29.0 pg 27.0-31.0 [facility] HospitalUaccjduJJAHJNQWRB1207-67-19 16:03:00 Test Item Value Reference Range Interpretation Comments MCHC (test code = MCHC) 33.7 32.0-36.0 [facility] HospitalDkzdtaeKDWXDKRHAA0797-29-08 16:03:00 Test Item Value Reference Range Interpretation Comments RDW (test code = RDW) 16.9 11.5-14.5 [facility] HospitalPkcecdjBJRGUWHVIF5306-79-79 16:03:00 Test Item Value Reference Range Interpretation Comments Platelet (test code = Platelet) 381 133-450 [facility] HospitalLbvbvhwVKBZGZLFUD6010-23-90 16:03:00 Test Item Value Reference Range Interpretation Comments MPV (test code = MPV) 7.9 7.4-10.4 [facility] HospitalAgcyeaqLJYKKBIFNJ6233-71-63 16:03:00 Test Item Value Reference Range Interpretation Comments Neutrophils # (test code = Neutrophils 9.0 1.5-8.1 #) [facility] HospitalWybyakfNVJVOASPOV3694-77-20 16:03:00 Test Item Value Reference Range Interpretation Comments Lymphocytes # (test code = Lymphocytes 1.3 1.0-5.5 #) [facility] HospitalEyjufysANOJIFVOCV2645-14-92 16:03:00 Test Item Value Reference Range Interpretation Comments Monocytes # (test code = Monocytes #) 1.2 <=0.8 [place] 016522-06-01 16:03:00 Test Item Value Reference Range Interpretation Comments Eosinophils # (test code = Eosinophils 0.9 <=0.5 #) [facility] HospitalGbcnnwjNOKFOOAJLR8132-11-28 16:03:00 Test Item Value Reference Range Interpretation Comments Segs (test code = Segs) 65.0 45.0-75.0 [facility] HospitalFzytiejCGMEADUXAU6160-61-30 16:03:00 Test Item Value Reference Range Interpretation Comments Bands (test code = Bands) 5.0 <=11.0 [facility] HospitalSkgwxnvKWRBSVGRLZ6299-71-77 16:03:00 Test Item Value Reference Range Interpretation Comments Lymphocytes (test code = Lymphocytes) 10.0 20.0-40.0 [facility] HospitalLjtezopENZJEBOGOW9590-42-05 16:03:00 Test Item Value Reference Range Interpretation Comments Monocytes (test code = Monocytes) 9.0 2.0-12.0 [place] 016522-06-01 16:03:00 Test Item Value Reference Range Interpretation Comments Eosinophils (test code = Eosinophils) 7.0 <=4.0 [place] 016522-06-01 16:03:00 Test Item Value Reference Range Interpretation Comments Metamyelocytes (test code = 3.0 <=1.0 Metamyelocytes) [place] 016522-06-01 16:03:00 Test Item Value Reference Range Interpretation Comments Myelocytes (test code = Myelocytes) 1.0 [place] 016522-06-01 16:03:00 Test Item Value Reference Range Interpretation Comments Atypical Lymphs (test code = Atypical 0.0 Lymphs) [facility] HospitalMpqqbkqZLWOEGVJLO9529-15-57 16:03:00 Test Item Value Reference Range Interpretation Comments Plt Morph (test code = Clumped 1(10/02/21 11:03 Plt Morph) AM) [place] 016522-06-01 16:03:00 Test Item Value Reference Range Interpretation Comments Anisocyte (test code = 1+ *ABN*(10/02/21 Anisocyte) 11:03 AM) [facility]2022-06-01 10:52:00 Test Item Value Reference Range Interpretation Comments Magnesium Lvl (test code = Magnesium 1.9 1.8-2.4 Lvl) [facility]2022-06-01 10:52:00 Test Item Value Reference Range Interpretation Comments Phosphorus (test code = Phosphorus) 3.4 2.5-4.5 [facility]2022-05-31 11:12:00 Test Item Value Reference Range Interpretation Comments Magnesium Lvl (test code = Magnesium 2.1 1.8-2.4 Lvl) [facility]2022-05-31 11:12:00 Test Item Value Reference Range Interpretation Comments Phosphorus (test code = Phosphorus) 0.9 2.5-4.5 [place] 016522-05-30 10:49:00 Test Item Value Reference Range Interpretation Comments WBC (test code = WBC) 5.2 3.7-10.4 [facility] HospitalQinecqrKOYQNYKTYQ6886-04-84 10:49:00 Test Item Value Reference Range Interpretation Comments RBC (test code = RBC) 2.94 4.20-5.40 [facility] HospitalIndvlecZCPNWPIPZN7056-27-71 10:49:00 Test Item Value Reference Range Interpretation Comments Hgb (test code = Hgb) 8.5 12.0-16.0 [place] 016522-05-30 10:49:00 Test Item Value Reference Range Interpretation Comments Hct (test code = Hct) 25.5 36.0-48.0 [place] 016522-05-30 10:49:00 Test Item Value Reference Range Interpretation Comments MCV (test code = MCV) 86.8 80.0-98.0 [place] 016522-05-30 10:49:00 Test Item Value Reference Range Interpretation Comments MCH (test code = MCH) 28.9 pg 27.0-31.0 [place] 016522-05-30 10:49:00 Test Item Value Reference Range Interpretation Comments MCHC (test code = MCHC) 33.3 32.0-36.0 [facility] HospitalUfvlgppDFIHZWPPIW6513-83-26 10:49:00 Test Item Value Reference Range Interpretation Comments RDW (test code = RDW) 16.1 11.5-14.5 [facility] HospitalHtjbwthJTKSZGOPUH5395-28-29 10:49:00 Test Item Value Reference Range Interpretation Comments Platelet (test code = Platelet) 361 133-450 [facility] HospitalZivpesjTJOLAQPHWX3427-72-66 10:49:00 Test Item Value Reference Range Interpretation Comments MPV (test code = MPV) 8.1 7.4-10.4 [facility] HospitalTppdelrYSFOVGPNRV7973-21-84 10:49:00 Test Item Value Reference Range Interpretation Comments Neutrophils # (test code = Neutrophils 2.8 1.5-8.1 #) [facility] HospitalYbsajbzCUAOGJZOVV5321-90-76 10:49:00 Test Item Value Reference Range Interpretation Comments Lymphocytes # (test code = Lymphocytes 1.1 1.0-5.5 #) [facility] HospitalArqpmhkYVMRFAOSZV1629-04-11 10:49:00 Test Item Value Reference Range Interpretation Comments Monocytes # (test code = Monocytes #) 0.7 <=0.8 [facility] HospitalZudptuxKBEEYWEJTP0518-59-89 10:49:00 Test Item Value Reference Range Interpretation Comments Eosinophils # (test code = Eosinophils 0.4 <=0.5 #) [facility] HospitalGkxxgmbLGQDUQETRE3903-38-07 10:49:00 Test Item Value Reference Range Interpretation Comments Segs (test code = Segs) 50.0 45.0-75.0 [facility] HospitalSydcrizPVIHJUAOLV2021-75-29 10:49:00 Test Item Value Reference Range Interpretation Comments Bands (test code = Bands) 4.0 <=11.0 [facility] HospitalMxjpqyoOYKKVPOYPV2727-76-49 10:49:00 Test Item Value Reference Range Interpretation Comments Lymphocytes (test code = Lymphocytes) 22.0 20.0-40.0 [facility] HospitalAutdehvRAZICNAROT3597-23-71 10:49:00 Test Item Value Reference Range Interpretation Comments Monocytes (test code = Monocytes) 14.0 2.0-12.0 [facility] HospitalXkxqcezRABLVDAOUM4438-46-28 10:49:00 Test Item Value Reference Range Interpretation Comments Eosinophils (test code = Eosinophils) 8.0 <=4.0 [place] 016522-05-30 10:49:00 Test Item Value Reference Range Interpretation Comments Myelocytes (test code = Myelocytes) 1.0 [place] 016522-05-30 10:49:00 Test Item Value Reference Range Interpretation Comments Promyelocytes (test code = 1.0 Promyelocytes) [place] 016522-05-30 10:49:00 Test Item Value Reference Range Interpretation Comments Atypical Lymphs (test code = Atypical 0.0 Lymphs) [place] 016522-05-30 10:49:00 Test Item Value Reference Range Interpretation Comments NRBC (test code = NRBC) 1 [place] 016522-05-30 10:49:00 Test Item Value Reference Range Interpretation Comments Plt Morph (test code = Normal (09/30/21 5:49 Plt Morph) AM) [place] 016522-05-30 10:49:00 Test Item Value Reference Range Interpretation Comments Tot Cell Ct (test code = Tot Cell Ct) 100 1 [facility] HospitalMrrosrpUKCKMHJOCK0996-07-42 10:49:00 Test Item Value Reference Range Interpretation Comments Polychrom (test code = Polychrom) Slight [facility]2022-05-29 09:20:00 Test Item Value Reference Range Interpretation Comments Magnesium Lvl (test code = Magnesium 2.1 1.8-2.4 Lvl) [place] 787552-05-29 09:20:00 Test Item Value Reference Range Interpretation Comments Phosphorus (test code = Phosphorus) 2.8 2.5-4.5 [place] 787552-05-29 09:20:00 Test Item Value Reference Range Interpretation Comments Glucose Lvl (test code = Glucose Lvl) 111 70-99 [place] 787552-05-29 09:20:00 Test Item Value Reference Range Interpretation Comments BUN (test code = BUN) 9 7-22 [place] 787552-05-29 09:20:00 Test Item Value Reference Range Interpretation Comments Creatinine Lvl (test code = Creatinine 0.56 0.50-1.40 Lvl) [place] 787552-05-29 09:20:00 Test Item Value Reference Range Interpretation Comments Sodium Lvl (test code = Sodium Lvl) 135 135-145 [place] [address]-05-29 09:20:00 Test Item Value Reference Range Interpretation Comments Potassium Lvl (test code = Potassium 4.0 3.5-5.1 Lvl) [place] 787552-05-29 09:20:00 Test Item Value Reference Range Interpretation Comments Chloride Lvl (test code = Chloride Lvl) 109 95-109 [place] [address]-05-29 09:20:00 Test Item Value Reference Range Interpretation Comments CO2 (test code = CO2) 7 24-[address]05-29 09:20:00 Test Item Value Reference Range Interpretation Comments AGAP (test code = AGAP) 23.0 10.0-20.0 [place] [address]-05-29 09:20:00 Test Item Value Reference Range Interpretation Comments Calcium Lvl (test code = Calcium Lvl) 8.1 8.5-10.5 [place] 787552-05-29 09:20:00 Test Item Value Reference Range Interpretation Comments eGFR (test code = eGFR) 115 [place] [address]-05-29 09:20:00 Test Item Value Reference Range Interpretation Comments Segs (test code = Segs) 81.9 45.0-75.0 [address]05-29 09:20:00 Test Item Value Reference Range Interpretation Comments Lymphocytes (test code = Lymphocytes) 8.6 20.0-40.0 [address]05-29 09:20:00 Test Item Value Reference Range Interpretation Comments Monocytes (test code = Monocytes) 6.4 2.0-12.0 [place] [address]-05-29 09:20:00 Test Item Value Reference Range Interpretation Comments Eosinophils (test code = Eosinophils) 2.9 <=4.0 [address]05-29 09:20:00 Test Item Value Reference Range Interpretation Comments Basophils (test code = Basophils) 0.2 <=1.0 [place] [address]-05-29 09:20:00 Test Item Value Reference Range Interpretation Comments Neutrophils # (test code = Neutrophils 3.3 1.5-8.1 #) [place] [address]-05-29 09:20:00 Test Item Value Reference Range Interpretation Comments Lymphocytes # (test code = Lymphocytes 0.3 1.0-5.5 #) [facility] HospitalVvivybfFQDYFGANIS3530-23-14 09:20:00 Test Item Value Reference Range Interpretation Comments Monocytes # (test code = Monocytes #) 0.3 <=0.8 [place] [address]-05-29 09:20:00 Test Item Value Reference Range Interpretation Comments Eosinophils # (test code = Eosinophils 0.1 <=0.5 #) [place] [address]-05-29 09:20:00 Test Item Value Reference Range Interpretation Comments WBC (test code = WBC) 4.0 3.7-10.4 [place] [address]-05-29 09:20:00 Test Item Value Reference Range Interpretation Comments RBC (test code = RBC) 3.33 4.20-5.40 [place] [address]-05-29 09:20:00 Test Item Value Reference Range Interpretation Comments Hgb (test code = Hgb) 9.9 12.0-16.0 [place] [address]-05-29 09:20:00 Test Item Value Reference Range Interpretation Comments Hct (test code = Hct) 29.6 36.0-48.0 [place] [address]-05-29 09:20:00 Test Item Value Reference Range Interpretation Comments MCV (test code = MCV) 88.9 80.0-98.0 [place] [address]-05-29 09:20:00 Test Item Value Reference Range Interpretation Comments MCH (test code = MCH) 29.6 pg 27.0-31.0 [place] 016522-05-29 09:20:00 Test Item Value Reference Range Interpretation Comments MCHC (test code = MCHC) 33.3 32.0-36.0 [place] [address]-05-29 09:20:00 Test Item Value Reference Range Interpretation Comments RDW (test code = RDW) 16.4 11.5-14.5 [place] 016522-05-29 09:20:00 Test Item Value Reference Range Interpretation Comments Platelet (test code = Platelet) 377 133-450 [place] 016522-05-29 09:20:00 Test Item Value Reference Range Interpretation Comments MPV (test code = MPV) 8.4 7.4-10.4 [place] [address]-05-28 09:02:00 Test Item Value Reference Range Interpretation Comments Glucose Lvl (test code = Glucose Lvl) 93 70-99 [place] 787552-05-28 09:02:00 Test Item Value Reference Range Interpretation Comments BUN (test code = BUN) 13 7-22 [place] 787552-05-28 09:02:00 Test Item Value Reference Range Interpretation Comments Creatinine Lvl (test code = Creatinine 0.63 0.50-1.40 Lvl) [place] [address]-05-28 09:02:00 Test Item Value Reference Range Interpretation Comments Sodium Lvl (test code = Sodium Lvl) 138 135-145 [place] [address]-05-28 09:02:00 Test Item Value Reference Range Interpretation Comments Potassium Lvl (test code = Potassium 3.7 3.5-5.1 Lvl) [place] [address]-05-28 09:02:00 Test Item Value Reference Range Interpretation Comments Chloride Lvl (test code = Chloride Lvl) 108 95-109 [place] [address]-05-28 09:02:00 Test Item Value Reference Range Interpretation Comments CO2 (test code = CO2) 18 24-32 [place] [address]-05-28 09:02:00 Test Item Value Reference Range Interpretation Comments Calcium Lvl (test code = Calcium Lvl) 8.2 8.5-10.5 [place] 787552-05-28 09:02:00 Test Item Value Reference Range Interpretation Comments AGAP (test code = AGAP) 15.7 10.0-20.0 [place] 787552-05-28 09:02:00 Test Item Value Reference Range Interpretation Comments eGFR (test code = eGFR) 110 [place] [address]-05-28 09:02:00 Test Item Value Reference Range Interpretation Comments Segs (test code = Segs) 69.3 45.0-75.0 [place] [address]-05-28 09:02:00 Test Item Value Reference Range Interpretation Comments Lymphocytes (test code = Lymphocytes) 19.5 20.0-40.0 [place] [address]-05-28 09:02:00 Test Item Value Reference Range Interpretation Comments Monocytes (test code = Monocytes) 5.5 2.0-12.0 [facility]BUSFU7388-90-32 09:02:00 Test Item Value Reference Range Interpretation Comments Eosinophils (test code = Eosinophils) 5.2 <=4.0 [facility] HospitalLstkqaxRFPIWNOKLJ8619-48-75 09:02:00 Test Item Value Reference Range Interpretation Comments Basophils (test code = Basophils) 0.5 <=1.0 [facility] HospitalSwzpcirDDFASSINGZ1981-10-54 09:02:00 Test Item Value Reference Range Interpretation Comments Neutrophils # (test code = Neutrophils 2.4 1.5-8.1 #) [facility]IgwdctwJZENYVTBOY0613-54-03 09:02:00 Test Item Value Reference Range Interpretation Comments Lymphocytes # (test code = Lymphocytes 0.7 1.0-5.5 #) [facility] HospitalFqnepfoLDSDLUSCUR6191-68-94 09:02:00 Test Item Value Reference Range Interpretation Comments Monocytes # (test code = Monocytes #) 0.2 <=0.8 [facility] HospitalOuvkfboLEKWMKGWAH2630-19-91 09:02:00 Test Item Value Reference Range Interpretation Comments Eosinophils # (test code = Eosinophils 0.2 <=0.5 #) [facility] HospitalDhetaqxVOYETMGTMM3549-70-68 09:02:00 Test Item Value Reference Range Interpretation Comments WBC (test code = WBC) 3.4 3.7-10.4 [facility] HospitalPohqvpvNIVWQMIEYG0563-67-82 09:02:00 Test Item Value Reference Range Interpretation Comments RBC (test code = RBC) 2.98 4.20-5.40 [facility] HospitalJnlxqyjQFSBQMLZMV3149-96-13 09:02:00 Test Item Value Reference Range Interpretation Comments Hgb (test code = Hgb) 8.9 12.0-16.0 [facility] HospitalYngfjqlJDSQSWGMZP1331-49-64 09:02:00 Test Item Value Reference Range Interpretation Comments Hct (test code = Hct) 26.4 36.0-48.0 [facility] HospitalWfolnceLZYOKKLFNL1252-10-55 09:02:00 Test Item Value Reference Range Interpretation Comments MCV (test code = MCV) 88.7 80.0-98.0 [facility] HospitalYhkudcnLPKLNCJHMD0707-20-91 09:02:00 Test Item Value Reference Range Interpretation Comments MCH (test code = MCH) 29.7 pg 27.0-31.0 [place] [address]-05-28 09:02:00 Test Item Value Reference Range Interpretation Comments MCHC (test code = MCHC) 33.5 32.0-36.0 [place] [address]-05-28 09:02:00 Test Item Value Reference Range Interpretation Comments RDW (test code = RDW) 16.1 11.5-14.5 [place] [address]-05-28 09:02:00 Test Item Value Reference Range Interpretation Comments Platelet (test code = Platelet) 295 133-450 [place] [address]-05-28 09:02:00 Test Item Value Reference Range Interpretation Comments MPV (test code = MPV) 8.6 7.4-10.4 [place] 787552-05-27 15:54:00 Test Item Value Reference Range Interpretation Comments Glucose Lvl (test code = Glucose Lvl) 97 70-99 [place] 787552-05-27 15:54:00 Test Item Value Reference Range Interpretation Comments BUN (test code = BUN) 12 -22 [place] 787552-05-27 15:54:00 Test Item Value Reference Range Interpretation Comments Creatinine Lvl (test code = Creatinine 0.63 0.50-1.40 Lvl) [place] 787552-05-27 15:54:00 Test Item Value Reference Range Interpretation Comments Sodium Lvl (test code = Sodium Lvl) 137 135-145 [place] 787552-05-27 15:54:00 Test Item Value Reference Range Interpretation Comments Potassium Lvl (test code = Potassium 3.5 3.5-5.1 Lvl) [place] 787552-05-27 15:54:00 Test Item Value Reference Range Interpretation Comments Chloride Lvl (test code = Chloride Lvl) 106 95-109 [place] [address]-05-27 15:54:00 Test Item Value Reference Range Interpretation Comments CO2 (test code = CO2) 21 24-32 [place] 787552-05-27 15:54:00 Test Item Value Reference Range Interpretation Comments Calcium Lvl (test code = Calcium Lvl) 8.2 8.5-10.5 [place] 787552-05-27 15:54:00 Test Item Value Reference Range Interpretation Comments AGAP (test code = AGAP) 13.5 10.0-20.0 [facility]2022-05-27 15:54:00 Test Item Value Reference Range Interpretation Comments eGFR (test code = eGFR) 64 [place] [address]-05-27 15:54:00 Test Item Value Reference Range Interpretation Comments WBC (test code = WBC) 11.9 3.7-10.4 [place] [address]-05-27 15:54:00 Test Item Value Reference Range Interpretation Comments RBC (test code = RBC) 3.18 4.20-5.40 [place] [address]-05-27 15:54:00 Test Item Value Reference Range Interpretation Comments Hgb (test code = Hgb) 9.4 12.0-16.0 [place] [address]-05-27 15:54:00 Test Item Value Reference Range Interpretation Comments Hct (test code = Hct) 27.8 36.0-48.0 [place] [address]-05-27 15:54:00 Test Item Value Reference Range Interpretation Comments MCV (test code = MCV) 87.3 80.0-98.0 [place] [address]-05-27 15:54:00 Test Item Value Reference Range Interpretation Comments MCH (test code = MCH) 29.4 pg 27.0-31.0 [place] [address]-05-27 15:54:00 Test Item Value Reference Range Interpretation Comments MCHC (test code = MCHC) 33.7 32.0-36.0 [place] [address]-05-27 15:54:00 Test Item Value Reference Range Interpretation Comments RDW (test code = RDW) 15.9 11.5-14.5 [place] [address]-05-27 15:54:00 Test Item Value Reference Range Interpretation Comments Platelet (test code = Platelet) 303 133-450 [place] [address]-05-27 15:54:00 Test Item Value Reference Range Interpretation Comments MPV (test code = MPV) 8.5 7.4-10.4 [place] [address]-05-27 15:54:00 Test Item Value Reference Range Interpretation Comments Segs (test code = Segs) 85.3 45.0-75.0 [place] 016522-05-27 15:54:00 Test Item Value Reference Range Interpretation Comments Lymphocytes (test code = Lymphocytes) 10.0 20.0-40.0 [place] [address]-05-27 15:54:00 Test Item Value Reference Range Interpretation Comments Monocytes (test code = Monocytes) 4.2 2.0-12.0 [place] [address]-05-27 15:54:00 Test Item Value Reference Range Interpretation Comments Eosinophils (test code = Eosinophils) 0.3 <=4.0 [place] [address]-05-27 15:54:00 Test Item Value Reference Range Interpretation Comments Basophils (test code = Basophils) 0.2 <=1.0 [place] [address]-05-27 15:54:00 Test Item Value Reference Range Interpretation Comments Neutrophils # (test code = Neutrophils 10.2 1.5-8.1 #) [place] 016522-05-27 15:54:00 Test Item Value Reference Range Interpretation Comments Lymphocytes # (test code = Lymphocytes 1.2 1.0-5.5 #) [place] [address]-05-27 15:54:00 Test Item Value Reference Range Interpretation Comments Monocytes # (test code = Monocytes #) 0.5 <=0.8 [facility]2022-05-26 11:53:17 Test Item Value Reference Range Interpretation Comments Lactic Acid Lvl (test code = Lactic 2.8 0.5-2.2 Acid Lvl) [place] 58228022-05-26 11:53:17 Test Item Value Reference Range Interpretation Comments S Preg (test code = S Negative *NA*(09/26/21 Preg) 6:53 AM) [facility] HospitalJtfcqboIREGICARWV8815-03-75 11:53:17 Test Item Value Reference Range Interpretation Comments ACT (TEG) Rapid (test code = ACT (TEG) 105 s 86-118 Rapid) [place] 016522-05-26 11:53:17 Test Item Value Reference Range Interpretation Comments Split Point Rapid (test code = Split 0.5 min Point Rapid) [place] 016522-05-26 11:53:17 Test Item Value Reference Range Interpretation Comments R-time Rapid (test code = R-time 0.6 min 0.4-0.7 Rapid) [facility] HospitalLvdwbhcTGPAIWJDLQ6794-90-39 11:53:17 Test Item Value Reference Range Interpretation Comments K-time Rapid (test code = K-time 0.8 min 0.6-2.3 Rapid) [facility] HospitalBbbakahHHUTYGWRAC2052-72-35 11:53:17 Test Item Value Reference Range Interpretation Comments Angle Rapid (test code = Angle 80 degrees 64-80 Rapid) [facility] HospitalPhtznslJDNDEIGXQP3589-92-66 11:53:17 Test Item Value Reference Range Interpretation Comments Max Amplitude Rapid (test code = Max 74 mm 52-71 Amplitude Rapid) [facility] HospitalBdqkrigDSCLZOFLPL3561-84-03 11:53:17 Test Item Value Reference Range Interpretation Comments G-value Rapid (test code = G-value 14.5 5.0-11.6 Rapid) [facility] HospitalXutrggxSGXNGNRJUW9202-44-17 11:53:17 Test Item Value Reference Range Interpretation Comments Estimated % Lysis Rapid (test code = 0.4 <=7.5 Estimated % Lysis Rapid) [facility] HospitalFtenrcqGNXJKJAJQO6562-72-31 11:53:17 Test Item Value Reference Range Interpretation Comments Eosinophils # (test code = Eosinophils 0.2 <=0.5 #) [facility] HospitalZurfvymHBGJHWQIXC2052-37-09 11:53:17 Test Item Value Reference Range Interpretation Comments Basophils # (test code = Basophils #) 0.1 <=0.2 [facility]RRLXN[facility]HEU3044-[facility]-62 11:53:17 Test Item Value Reference Range Interpretation Comments Coronavirus (COVID-19) Not Detected (09/26/21 SANTIAGO (test code = 6:53 AM) Coronavirus (COVID-19) SANTIAGO) [facility]cjqtsyUTNMCGQXAR5551-50-77 11:53:17 Test Item Value Reference Range Interpretation Comments Ethanol Lvl (test code = Ethanol Lvl) no gt [facility] HospitalOxoztktQFZGODMLDH4269-97-14 11:53:17 Test Item Value Reference Range Interpretation Comments Etoh (%) (test code = Etoh (%)) no gt [facility] UOQQWOG8030-26-68 11:43:00 Test Item Value Reference Range Interpretation Comments ABO/Rh (test code = ABO/Rh) B POS [facility] UJNTVJZ3149-29-22 11:43:00 Test Item Value Reference Range Interpretation Comments Antibody Scrn (test Negative (09/26/21 6:43 code = Antibody Scrn) AM) [facility] URINE MONOCLONALFB2020-11-09 05:17:00 Test Item Value Reference Range Interpretation Comments PREG UR (test code = PGU) NEGATIVE NEGATIVE URINE MONOCLONALFB2020-07-27 05:35:00 Test Item Value Reference Range Interpretation Comments PREG UR (test code = PGU) NEGATIVE NEGATIVE TISSUE [id number] 13:44:00Surgical Pathology Report Case: [id number] Authorizing Provider: Cindy Angulo, Collected: 11/23/2017 1104 MD Ordering Location: [facility] PERI[facility] Received: 11/23/2017 1154 SERVICES Pathologist: Mario Alberto Gimenez MD Specimens: A) - Parathyroid, Left inferior parathyroid gland B) - Parathyroid, left superior parathyroid adenoma A. PARATHYROID, LEFT INFERIOR, EXCISION (0.077 GRAMS):NORMOCELLULAR PARATHYROID TISSUE.B. PARATHYROID, LEFT SUPERIOR, EXCISION (1.26 GRAMS):HYPERCELLULAR PARA THYROID TISSUE. Signing Pathologist Direct Phone Line: [phone] signed by Mario Alberto Gimenez MD on 11/24/2017 at 1:44 [id number] hyperparathyroidismA. Left inferior parathyroid gland; B. Left superior parathyroid adenomaSpecimen A: Received fresh labeled "parathyroid", description "left [...] bisected and entirely submitted in cassette B1-B2. DB/plPerformedPTH, [id number] 12:26:00 Test Item Value Reference Range Interpretation Comments PARATHYROID HORMONE INTACT 17.2 pg/mL 8.5-72.5 (BEAKER) (test code = 577) PTH, [id number] 11:13:00 Test Item Value Reference Range Interpretation Comments PARATHYROID HORMONE INTACT 239.0 pg/mL 8.5-72.5 H (BEAKER) (test code = 577) [id number] 09:02:00 Test Item Value Reference Range Interpretation Comments SODIUM (BEAKER) (test 135 meq/L 136-145 L code = 381) POTASSIUM (BEAKER) 4.9 meq/L 3.5-5.1 Specimen moderately (test code = 379) hemolyzed CHLORIDE (BEAKER) 108 meq/L 98-107 H (test code = 382) CO2 (BEAKER) (test 21 meq/L 22-29 L code = 355) [id number] 09:02:00 Test Item Value Reference Range Interpretation Comments GLUCOSE RANDOM (BEAKER) (test code = 77 mg/dL 70-105 652) POCT-HEMOGLOBIN [id number] 08:40:00 Test Item Value Reference Range Interpretation Comments POC-HEMOGLOBIN METER 12.1 g/dL 12.0-15.[address] [facility] 67[address] (BEAKER) (test code = [place] 1539) [id number]
--- NOTE | 2023-04-02 22:30 | RAD REPORT ---
EXAM DESCRIPTION: RAD - Chest Single View - 04/02/2023 10:21 pm CLINICAL HISTORY: COUGH Chest pain. COMPARISON: Chest Single View dated 12/03/2017 FINDINGS: Portable technique limits examination quality. The lungs are underinflated resulting in vascular crowding. The heart is upper limit normal in size. No displaced fractures.
[2023-04-02] MEDS ORDERED: DIPHENHYDRAMINE 50 MG/ML VIAL ONE (22:32)
[2023-04-02] MEDS ORDERED: METOCLOPRAMIDE 10 MG/2mL INJ ONE (22:32)
[2023-04-02] MEDS ORDERED: NA CHLORIDE 0.9% 1,000 ML ONE (22:32)
--- NOTE | 2023-04-02 22:36 | RAD REPORT ---
EXAM DESCRIPTION: CT - Head Brain Wo Cont - 04/02/2023 10:27 pm CLINICAL HISTORY: SEIZURE Headache, drowsiness, seizure. COMPARISON: <Comparisons> TECHNIQUE: All CT scans are performed using dose optimization technique as appropriate and may inclu de automated exposure control or mA/KV adjustment according to patient size. FINDINGS: No intracranial hemorrhage, hydrocephalus or extra-axial fluid collection.No areas of brai n edema or evidence of midline shift. The paranasal sinuses and mastoids are clear. The calvarium is intact. IMPRESSION: No acute intracranial abnormality.
[2023-04-02 22:59] LABS: Albumin 3.7 g/dL (3.4-5.0); Bilirubin Total 0.2 mg/dL (0.2-1.0); Potassium 3.1 mEq/L (3.5-5.1); Protein, Total 7.6 g/dL (6.4-8.2)
[2023-04-02 23:09] LABS: Specific Gravity 1.022 (1.005-1.030)
[2023-04-02 23:11] LABS: Absolute Lymphocytes (CBC) 2.7 K/uL (0.7-4.9); Lymphocytes % 41.7 % (15.3-44.8); MCV 79.9 fL (80-100); MPV 8.3 fL (7.6-11.3); Platelets 487 thou/uL (152-406); RBC Red Blood Cell Count 4.39 M/uL (3.86-4.86)
--- NOTE | 2023-04-02 23:19 | EDPHYS ---
Physician Documentation [facility] Name: Vashti Colin Age: 42 yrs Sex: Female : 1980 Arrival Date: 04/02/2023 Time: 21:44 Bed 4 Private MD: ED Physician John Cisneros HPI: 04/02 22:05 This 42 yrs old Unknown Female presents to ER via EMS with complaints of concern for ec2 seizure. 22:05 Patient arrives today due to concern for seizure episode. Patient reportedly was found ec2 on the ground having generalized tonic-clonic movements by coworkers. Patient reports that she was walking, lasting she remembers is being woken up with EMS present. Patient reports no head pain, no injury, otherwise has been in normal state of health. Patient reports no history of seizures, does have a family history of epilepsy. Patient does have a history of Crohn's disease which she takes Stelara for every 8 weeks.. Historical: - Allergies: 22:03 No Known Allergies; vc1 - PMHx: 22:03 crohns disease; Migraines; insomnia (Migraines); vc1 - PSHx: 22:03 Cholecystectomy; parathyroid tumor removal; vc1 - Immunization history:: Client reports receiving the 1st dose of the Covid vaccine, Flu vaccine is not up to date. - Social history:: Smoking status: Patient denies any tobacco usage or history of. ROS: 22:06 Constitutional: as per hpi ec2 Exam: 22:06 Constitutional: GEN: NAD Head: atraumatic Eyes: EOMI Ears: External ears are ec2 normal. CV: regular rate LUNGS: no respiratory distress ABD: non-distended SKIN: no evidence of rashes MSK: no evidence of trauma NEURO: moves all extremities equally, cranial nerves II through XII intact, strength intact in all 4 extremities, appropriate jzpeqo-jskz-vawvsk, no drift appreciated. Vital Signs: 21:41 BP 163 / 111; Pulse 97; Resp 16; Pulse Ox 100% on R/A; km8 21:57 BP 163 / 111 RA Sitting (auto/reg); Pulse 102 MON; Resp 17 S; Temp 98.2(O); Pulse Ox vc1 95% on R/A; MAP 118 mmHg; Weight 90.72 kg (R); Height 5 ft. 3 in. (R); Pain 0/10; 22:00 BP 160 / 140; Pulse 97; Resp 16; Pulse Ox 100% on R/A; km8 23:18 BP 157 / 99; Pulse 77; Resp 16 S; Pulse Ox 100% on R/A; km8 21:57 Body Mass Index 35.43 (90.72 kg, 160.02 cm) vc1 21:57 Pain Scale: Adult vc1 MDM: 21:49 Patient medically screened. ec2 22:06 Data reviewed: vital signs. ED course: Patient arrives today due to concern for ec2 possible seizure. Patient examination is remarkable for intact neurologic exam. Will obtain lab work, EKG, chest x-ray as well as CT scan of the head. Currently considering electrolyte disturbance, , UTI, brain mass, seizure disorder.. 22:16 ED course: EKG independently reviewed and interpreted by me, shows normal sinus rhythm, ec2 rate of 91, no acute ST segment elevations,qtc with slight prolongation. . 22:44 ED course: CT scan of the head and chest x-ray independently reviewed and interpreted ec2 by me, showed no acute process. On reassessment patient remains well-appearing, pending labs.. 04/02 21:50 Order name: CBC with Diff; Complete Time: 23:17 ec2 04/02 21:50 Order name: CMP; Complete Time: 23:17 ec2 04/02 21:50 Order name: Test, Urine; Complete Time: 23:17 ec2 04/02 21:50 Order name: CT Head Brain wo Cont; Complete Time: 22:43 ec2 04/02 22:06 Order name: CXR XRAY; Complete Time: 22:43 ec2 04/02 21:50 Order name: EKG; Complete Time: 21:51 ec2 04/02 21:50 Order name: EKG - Nurse/Tech; Complete Time: 22:16 ec2 Administered Medications: 22:09 CANCELLED (Physician Discretion): ondansetron 4 mg IVP once; over 2 minutes ec2 22:31 Drug: NS 0.9% IV 1000 ml IV at 1 bolus Per protocol; 1000 mL bolus Route: IV; Rate: 1 vc1 bolus; Site: left antecubital; 23:34 Follow up: IV Status: Order to discontinue infusion; IV Intake: 100ml km8 22:31 Drug: metoCLOPramide IVP 10 mg IVP once; over 1 to 2 minutes Route: IVP; Site: left vc1 antecubital; 23:27 Follow up: Response: No adverse reaction km8 22:31 Drug: diphenhydrAMINE IVP 25 mg IVP once Route: IVP; Site: left antecubital; vc1 23:27 Follow up: Response: No adverse reaction km8 23:26 Drug: Potassium Chloride PO 40 mEq PO once Route: PO; km8 23:34 Follow up: Response: No adverse reaction km8 Disposition Summary: 04/02/23 23:18 Discharge Ordered Notes: Location: Home ec2 Condition: Stable ec2 Diagnosis - Syncope ec2 - Hypokalemia ec2 Followup: ec2 - With: Wesley Romero MD - When: - Reason: Recheck today's complaints Discharge Instructions: - Discharge Summary Sheet ec2 - Potassium Content of Foods ec2 - Seizure, Adult ec2 Forms: - Medication Reconciliation Form ec2 - Thank You Letter ec2 - Antibiotic Education ec2 - Prescription Opioid Use ec2 - Patient Portal Instructions ec2 - Leadership Thank You Letter ec2 Signatures: Dispatcher [employer] EDVashti Virk RN RN vc1 John Cisneros MD MD ec2 Michelle Alejandre RN RN km8 Corrections: (The following items were deleted from the chart) 22:06 22:05 Patient arrives today due to concern for seizure episode. Patient reportedly was ec2 found on the ground having generalized tonic-clonic movements by coworkers. Patient reports that she was walking, lasting she remembers is being woken up with EMS present. Patient reports no head pain, no injury, otherwise has been in normal state of health. Patient reports no history of seizures, does have a family history of epilepsy.. ec2 22:09 21:50 Ondansetron IVP 4 mg IVP once; over 2 minutes ordered. ec2 ec2
--- NOTE | 2023-04-02 23:19 | ER ---
Nurse's Notes [facility] Name: Vashti Colin Age: 42 yrs Sex: Female : 1980 Arrival Date: 04/02/2023 Time: 21:44 Bed 4 Private MD: Diagnosis: Syncope;Hypokalemia Presentation: 04/02 21:57 Chief complaint: EMS states: Was at work sitting at her desk talking to a coworker. vc1 That coworker walked out and about 2 minutes later another coworker walked in and found her on the floor after what seemed to be a seizure. Pt was noted to be conscious with drool coming out of mouth. Only complaint at this time is nausea. Coronavirus screen: Vaccine status: Patient reports receiving the 1st dose of the Covid vaccine. Pfizer Client denies travel out of the [place] in the last 14 days. At this time, the client does not indicate any symptoms associated with coronavirus-19. Ebola Screen: Patient negative for fever greater than or equal to 101.5 degrees Fahrenheit, and additional compatible Ebola Virus Disease symptoms Patient denies exposure to infectious person. Patient denies travel to an Ebola-affected area in the 21 days before illness onset. No symptoms or risks identified at this time. Initial Sepsis Screen: Does the patient meet any 2 criteria? HR > 90 bpm. No. Patient's initial sepsis screen is negative. Does the patient have a suspected source of infection? No. Patient's initial sepsis screen is negative. Risk Assessment: Do you want to hurt yourself or someone else? Patient reports no desire to harm self or others. Onset of symptoms was April 02, 2023. Care prior to arrival: IV initiated. 18 GA, in the left antecubital area, Glucose check: 105. Activity prior to arrival: seizure. Transition of care: patient was not received from another setting of care. 21:57 Method Of Arrival: EMS: [facility] vc1 21:57 Acuity: MELANI 3 vc1 Triage Assessment: 22:05 General: Appears in no apparent distress. comfortable, Behavior is calm, cooperative, vc1 appropriate for age. Pain: Denies pain. EENT: No deficits noted. No signs and/or symptoms were reported regarding the EENT system. Neuro: Level of Consciousness is awake, alert, obeys commands, Oriented to person, place, time, situation, Appropriate for age. Cardiovascular: No deficits noted. Respiratory: Airway is patent Respiratory effort is even, unlabored, Respiratory pattern is regular, symmetrical. GI: Reports nausea. : No deficits noted. No signs and/or symptoms were reported regarding the genitourinary system. Derm: No deficits noted. No signs and/or symptoms reported regarding the dermatologic system. Musculoskeletal: No deficits noted. No signs and/or symptoms reported regarding the musculoskeletal system. Historical: - Allergies: 22:03 No Known Allergies; vc1 - PMHx: 22:03 crohns disease; Migraines; insomnia (Migraines); vc1 - PSHx: 22:03 Cholecystectomy; parathyroid tumor removal; vc1 - Immunization history:: Client reports receiving the 1st dose of the Covid vaccine, Flu vaccine is not up to date. - Social history:: Smoking status: Patient denies any tobacco usage or history of. Screenin:04 [facility] ED Fall Risk Assessment (Adult) History of falling in the last 3 months, vc1 including since admission Yes- physiologic fall (2 pts) Confusion or Disorientation No (0 pts) Intoxicated or Sedated No (0 pts) Impaired Gait No (0 pts) Mobility Assist Device Used No (0 pt) Altered Elimination No (0 pt) Score/Fall Risk Level 0 - 2 = Low Risk. Abuse screen: Denies threats or abuse. Nutritional screening: No deficits noted. Tuberculosis screening: No symptoms or risk factors identified. Vital Signs: 21:41 BP 163 / 111; Pulse 97; Resp 16; Pulse Ox 100% on R/A; km8 21:57 BP 163 / 111 RA Sitting (auto/reg); Pulse 102 MON; Resp 17 S; Temp 98.2(O); Pulse Ox vc1 95% on R/A; MAP 118 mmHg; Weight 90.72 kg (R); Height 5 ft. 3 in. (R); Pain 0/10; 22:00 BP 160 / 140; Pulse 97; Resp 16; Pulse Ox 100% on R/A; km8 23:18 BP 157 / 99; Pulse 77; Resp 16 S; Pulse Ox 100% on R/A; km8 21:57 Body Mass Index 35.43 (90.72 kg, 160.02 cm) vc1 21:57 Pain Scale: Adult vc1 ED Course: 21:49 Patient arrived in ED. rv1 21:49 John Cisneros MD is Attending Physician. ec2 21:56 Vashti Santana, RN is Primary Nurse. vc1 22:03 Triage completed. vc1 22:04 Arm band placed on right wrist. vc1 22:07 Patient has correct armband on for positive identification. Placed in gown. Bed in low vc1 position. Call light in reach. Side rails up X2. Pulse ox on. NIBP on. 22:23 CXR XRAY In Process Unspecified. EDMS 22:28 CT Head Brain wo Cont In Process Unspecified. EDMS 23:18 Wesley Romero MD is Referral Physician. ec2 23:32 Provided Education on: d/c teaching. km8 23:32 No provider procedures requiring assistance completed. IV discontinued, intact, km8 bleeding controlled, No redness/swelling at site. Pressure dressing applied. Administered Medications: 22:09 CANCELLED (Physician Discretion): ondansetron 4 mg IVP once; over 2 minutes ec2 22:31 Drug: NS 0.9% IV 1000 ml IV at 1 bolus Per protocol; 1000 mL bolus Route: IV; Rate: 1 vc1 bolus; Site: left antecubital; 23:34 Follow up: IV Status: Order to discontinue infusion; IV Intake: 100ml km8 22:31 Drug: metoCLOPramide IVP 10 mg IVP once; over 1 to 2 minutes Route: IVP; Site: left vc1 antecubital; 23:27 Follow up: Response: No adverse reaction km8 22:31 Drug: diphenhydrAMINE IVP 25 mg IVP once Route: IVP; Site: left antecubital; vc1 23:27 Follow up: Response: No adverse reaction km8 23:26 Drug: Potassium Chloride PO 40 mEq PO once Route: PO; km8 23:34 Follow up: Response: No adverse reaction km8 Medication: 22:07 VIS not applicable for this client. vc1 Intake: 23:34 IV: 100ml; Total: 100ml. km8 Outcome: 23:18 Discharge ordered by . ec2 23:34 Discharged to home ambulatory, with friend, km8 23:34 Condition: good 23:34 Discharge instructions given to patient, Instructed on discharge instructions, follow up and referral plans. Demonstrated understanding of instructions, follow-up care, 23:34 Patient left the ED. km8 Signatures: Dispatcher [employer] Vashti Godwin RN RN 1 Melanie Combs 1 John Cisneros MD MD ec2 Michelle Alejandre RN RN km8
[2023-04-02] MEDS ORDERED: POTASSIUM CL SA 10 MEQ TAB PO ONE (23:33)
[2023-04-03 00:43] VITALS: TEMP 98.2
[2023-04-03 00:46] VITALS: O2SAT 100
[2023-04-03 00:47] VITALS: BP 157/99
--- NOTE | 2023-04-03 14:47 | EKG ---
Test Date: 2023-04-02 Test Time: 22:13:09 Laboratory Technical Specialist: SARAI MEASUREMENT RESULTS: Intervals: Rate: 91 MD: 146 QRSD: 90 QT: 398 QTc: 489 [place]: P: 53 MD: 146 QRS: -29 T: 58 INTERPRETIVE STATEMENTS: Normal sinus rhythm Prolonged QT Abnormal ECG Compared to ECG 12/03/2017 12:23:10 Prolonged QT interval now present Electronically Signed On 04-03-23 14:45:17 APARTMENT COORDINATOR by Osmin Acuna
== END 2023-04-02 23:34 | disposition home or self-care (01) ==
LOC: ER 21:44
DX: R55 Syncope and collapse (principal); E87.6 Hypokalemia
CPT/HCPCS: 36415; 70450; 71045; 80053; 81025; 85025; 93005; 96361; 96374; 96375; 99284; J1200; J2765; J7030

== ENCOUNTER → 2023-06-10 | Emergency (ER) | payer BC ==
[~2023-06-10] MED LIST: KETOROLAC 30 MG/ML INJ ONE; LEVETIRACETAM 500 MG/5 ML VIAL IV ONE; NA CHLORIDE 0.9% 1,000 ML ONE; NA CHLORIDE 0.9% 100 ML ONE
--- OUTSIDE RECORDS SUMMARY | 2023-06-10 18:47 | XMS REPORT | Clinical Summary ---
Author Name Unknown Organization [facility] Address [address] [place] [address] Care Team Providers Care Clerical Support Specialist Name Role Phone Cherelle Morton MD Unavailable Unavailable Eitan Heredia MD Primary Care Provid er Allergies No known active allergies Medications Medication Sig Dispensed Refills Start Date End Date Status gabapentin (NEURONTIN) 600 mg tablet Take 1 tablet by mouth daily. 0 03/04/2019 Active topiramate (Topamax) 25 mg tablet Take 2 tablets by mouth daily. 0 10/20/2017 Active SUMAtriptan (IMITREX) 100 mg tablet Take 1 tablet by mouth as needed. 0 09/02/2019 Active ustekinumab (STELARA) 90 mg/mL injection Inject 90 mg under the skin every 3 (three) months. Every 8 weeks 0 Active AIMOVIG AUTOINJECTOR 70 mg/mL atIn Inject 70 mg as directed every 30 (thirty) days. 0 09/15/2019 Active ALPRAZolam (Xanax) 0.5 mg tabletIndications:Fear of other medical care Take 1 tablet (0.5 mg) by mouth See Admin Instructions. Take when directed by MRI staff. May repeat x 1 dose, if needed. 2 tablet 0 10/06/2019 Active Active Problems Problem Noted Date Diagnosed Date Migraine Rztmpna-Bowgj-Toskn disease Crohn's disease Surgical History Surgery Date Site/Laterality Comments HERNIA REPAIR SECTION, LOW TRANSVERSE x2 LAPAROSCOPIC CHOLECYSTECOMY CARPAL TUNNEL RELEASE Bilateral ANUS SURGERY PARATHYROIDECTOMY Medical History Medical History Date Comments Crohn's disease Ifnmpfm-Ywxrv-Xdfmw disease Migraine Family History Medical History Relation Name Comments Bladder Cancer Father Breast cancer Mother Relation Name Status Comments Father Mother Social History Tobacco Use Types Packs/Day Years Used Date Smoking Tobacco: Never Smokeless Tobacco: Never Alcohol Use Standard Drinks/Week Comments Not Currently 0 (1 standard drink = 0.6 oz pur e alcohol) Sex and Gender Information Value Date Recorded Sex Assigned at Not on file Gender Identity Not on file Sexual Orientation Not on file Obstetrics History Para Term AB IAB SAB Ectopic Multiple Livin g Live Births 2 2 2 Date Outcome GA Total Labor Labor/2nd/3rd Weight Sex Delivery Anes PTL Sonia A1 A5 Name Cl in Para Para Comments Menarche 11 Parity 36 OBC: over 10 years. Hormonal Therapy none Last Pap over 3 years ago. Normal Abnormal Pap none. Last Ny 08/20/2019. BIRADS 2 Last Colon 2018. Polyps benign Breast Bx none Plan of Treatment Health Maintenance Due Date Last Done Comments COVID-19 Vaccination (#1) 02/26/1979 Care Teams Clerical Support Specialist Relationship Specialty Start Date End Date Cherelle Morton MD PCP - External Primary Care Provider Internal Medicine 09/13/19 Eitan Heredia MD [address] [place] [address] PCP - General Cancer Prevention 09/16/19
[2023-06-10 19:41] LABS: Absolute Lymphocytes (CBC) 1.5 K/uL (0.7-4.9); Lymphocytes % 18.7 % (15.3-44.8); MCV 81.3 fL (80-100); MPV 7.7 fL (7.6-11.3); Platelets 408 thou/uL (152-406)
[2023-06-10 19:54] LABS: Potassium 3.2 mEq/L (3.5-5.1)
[2023-06-10 20:06] LABS: Urine Bacteria <20 /HPF (<20); Urine Bilirubin NEGATIVE (Negative); Urine Blood Trace (Negative); Urine Clarity Turbid (Clear); Urine Color Light-Yellow (Yellow); Urine Glucose NEGATIVE (Negative); Urine Mucus Slight /HPF (None Seen); Urine Protein TRACE (Negative); Urine RBC <5 /HPF (None Seen); Urine Urobilinogen Normal (Normal)
--- NOTE | 2023-06-10 20:27 | ER ---
Nurse's Notes [facility] Name: Vashti Colin Age: 42 yrs Sex: Female : 1980 Arrival Date: 06/10/2023 Time: 18:45 Bed 5 Private MD: Diagnosis: Other seizures Presentation: 06/10 18:53 Chief complaint: Patient states: saw Dr Romero today around 3-4 pm due to seizure ko1 back on 04/02. Had an EEG at his office, then went home and laid down on they couch due to a headache after the EEG. Kids found her having a seizure on the couch, unknown how long it lasted and unknown how long post ictal. Last time a seizure occurred her potassium was really low. Coronavirus screen: At this time, the client does not indicate any symptoms associated with coronavirus-19. Ebola Screen: No symptoms or risks identified at this time. Initial Sepsis Screen: Does the patient meet any 2 criteria? No. Patient's initial sepsis screen is negative. Does the patient have a suspected source of infection? No. Patient's initial sepsis screen is negative. Risk Assessment: Do you want to hurt yourself or someone else? Patient reports no desire to harm self or others. Onset of symptoms was June 10, 2023. 18:53 Method Of Arrival: Wheelchair ko1 18:53 Acuity: MELANI 3 ko1 Triage Assessment: 18:56 General: Appears in no apparent distress. Behavior is calm, cooperative, appropriate ko1 for age. Pain: Complains of pain in right hindu and left hindu. Neuro: Reports headache in right in left Seizure activity reported prior to arrival. Historical: - Allergies: 18:56 No Known Allergies; ko1 - PMHx: 18:56 crohns disease; insomnia (Migraines); Migraines; Seizure; ko1 - PSHx: 18:56 Cholecystectomy; parathyroid tumor removal; ko1 - Immunization history:: Adult Immunizations up to date. - Social history:: Smoking status: Patient denies any tobacco usage or history of. Screenin:40 [facility] ED Fall Risk Assessment (Adult) History of falling in the last 3 months, jb4 including since admission No falls in past 3 months (0 pts) Confusion or Disorientation No (0 pts). Abuse screen: Denies threats or abuse. Nutritional screening: No deficits noted. Tuberculosis screening: No symptoms or risk factors identified. Assessment: 19:00 General: Appears in no apparent distress. comfortable, Behavior is calm, cooperative, jb4 appropriate for age. Pain: Denies pain. Neuro: Level of Consciousness is awake, alert, obeys commands, Oriented to person, place, time, situation. Cardiovascular: Patient's skin is warm and dry. Respiratory: Airway is patent Respiratory effort is even, unlabored, Respiratory pattern is regular, symmetrical. GI: No signs and/or symptoms were reported involving the gastrointestinal system. : No signs and/or symptoms were reported regarding the genitourinary system. EENT: No signs and/or symptoms were reported regarding the EENT system. Derm: Skin is intact, Skin is pink, warm \T\ dry. Musculoskeletal: Circulation, motion, and sensation intact. Range of motion: intact in all extremities. 19:58 Reassessment: Pt currently resting in bed, A\T\Ox4, denies any complaints at this time. jb4 Respirations are even and unlabored with no s/s of pain or distress noted. 21:00 Reassessment: Patient appears in no apparent distress at this time. Patient and/or jb4 family updated on plan of care and expected duration. Pain level reassessed. Patient is alert, oriented x 3, equal unlabored respirations, skin warm/dry/pink. 21:55 Reassessment: Patient appears in no apparent distress at this time. Patient and/or jb4 family updated on plan of care and expected duration. Pain level reassessed. Patient is alert, oriented x 3, equal unlabored respirations, skin warm/dry/pink. 22:40 Reassessment: Patient appears in no apparent distress at this time. Patient and/or jb4 family updated on plan of care and expected duration. Pain level reassessed. Patient is alert, oriented x 3, equal unlabored respirations, skin warm/dry/pink. Vital Signs: 18:53 BP 143 / 103; Pulse 83; Resp 16; Temp 98.2; Pulse Ox 99% ; Weight 99.79 kg; Height 5 ko1 ft. 3 in. ; 19:06 BP 151 / 95; Pulse 78; Resp 18; Pulse Ox 99% on R/A; me1 20:00 BP 152 / 96; Pulse 72; Resp 18; Pulse Ox 99% on R/A; me1 20:30 BP 153 / 93; Pulse 85; Resp 18; Pulse Ox 99% on R/A; me1 21:15 BP 153 / 95; Pulse 70; Resp 17; Pulse Ox 95% on R/A; me1 18:53 Body Mass Index 38.97 (99.79 kg, 160.02 cm) ko1 Марина Coma Score: 18:56 Eye Response: spontaneous(4). Motor Response: obeys commands(6). Verbal Response: ko1 oriented(5). Total: 15. ED Course: 18:45 Patient arrived in ED. mg5 18:56 Triage completed. ko1 18:56 Arm band placed on right wrist. Patient placed in an exam room, Patient notified of ko1 wait time. 19:04 Martha Parsons FNP-C is PHCP. kb 19:04 Luis Alberto Suarez MD is Attending Physician. kb 19:34 Basic Metabolic Panel Sent. jb4 19:34 CBC with Diff Sent. jb4 19:53 CT Head Brain wo Cont In Process Unspecified. EDMS 20:58 Chest Single View XRAY In Process Unspecified. EDMS 22:40 Patient has correct armband on for positive identification. Bed in low position. Call jb4 light in reach. Side rails up X 1. 22:40 No provider procedures requiring assistance completed. IV discontinued, intact, jb4 bleeding controlled, No redness/swelling at site. Pressure dressing applied. Administered Medications: 19:17 CANCELLED (Duplicate Order): [id number] mg IV at calculated rate once kb 19:58 Drug: NS 0.9% IV 1000 ml IV at 1000 ml once Route: IV; Rate: 1000 ml; Site: right jb4 antecubital; 19:58 Drug: Keppra IV 500 mg IV at calculated rate once Route: IV; Rate: calculated rate; jb4 Site: right antecubital; 22:35 Drug: Ketorolac IVP 15 mg IVP once Route: IVP; Site: right antecubital; jb4 Outcome: 20:26 Discharge ordered by . kb 22:26 Discharge ordered by . kb 22:40 Discharged to home via wheelchair, with family, jb4 22:40 Condition: stable 22:40 Discharge instructions given to patient, Instructed on discharge instructions, follow up and referral plans. medication usage, Demonstrated understanding of instructions, follow-up care, medications, Prescriptions given X 1, 22:42 Patient left the ED. jb4 Signatures: Dispatcher [employer] EDMartha Arechiga, KEZIA CORNELLP-Quentin Gaitan RN RN jb4 Madelaine Horne RN RN ko1 Nicole Gonzalez RN RN me1 Thea Vilchis mg5 Corrections: (The following items were deleted from the chart) 19:59 19:58 Reassessment: See triage note. Pt currently resting in bed, A\T\Ox4, denies any jb4 complaints at this time. Respirations are even and unlabored with no s/s of pain or distress noted. jb4
--- NOTE | 2023-06-10 20:27 | EDPHYS ---
Physician Documentation [facility] Name: Vashti Colin Age: 42 yrs Sex: Female : 1980 Arrival Date: 06/10/2023 Time: 18:45 Bed 5 Private MD: TAYO Physician Luis Alberto Suarez HPI: 06/10 20:53 This 42 yrs old Unknown Female presents to ER via Wheelchair with complaints of kb Seizure, loc, Fall Injury - head. 20:53 Patient is a 42-year-old female who presents for headache and seizure. States she had kb her first seizure 2 months ago, was seen by Dr. Romero today and had an EEG done in the office. States she has had a headache since the EEG was completed, lay down on the couch at home to take a nap and her kids walked in on her having a seizure. States this occurred 30 minutes to 1 hour prior to arrival. Patient is awake, alert and oriented x 4 at this time. Still complaining of a headache. Historical: - Allergies: 18:56 No Known Allergies; ko1 - PMHx: 18:56 crohns disease; insomnia (Migraines); Migraines; Seizure; ko1 - PSHx: 18:56 Cholecystectomy; parathyroid tumor removal; ko1 - Immunization history:: Adult Immunizations up to date. - Social history:: Smoking status: Patient denies any tobacco usage or history of. ROS: 20:53 Constitutional: Negative for fever, chills, and weight loss, kb 20:53 Neuro: Positive for headache, seizure activity, 20:53 All other systems are negative, Exam: 20:53 Constitutional: This is a well developed, well nourished patient who is awake, alert, kb and in no acute distress. Head/Face: Normocephalic, atraumatic. ENT: Moist Mucous membranes Cardiovascular: Regular rate Respiratory: Respirations even and unlabored. No increased work of breathing. Talking in full sentences Abdomen/GI: Soft, non-tender. No distention Skin: Warm, dry with normal turgor. Normal color. MS/ Extremity: Pulses equal, no cyanosis. Neurovascular intact. Full, normal range of motion. Neuro: Awake and alert, GCS 15, oriented to person, place, time, and situation. Moves all extremities. Normal gait. 21:52 ECG was reviewed by the Attending Physician. kb Vital Signs: 18:53 BP 143 / 103; Pulse 83; Resp 16; Temp 98.2; Pulse Ox 99% ; Weight 99.79 kg; Height 5 ko1 ft. 3 in. ; 19:06 BP 151 / 95; Pulse 78; Resp 18; Pulse Ox 99% on R/A; me1 20:00 BP 152 / 96; Pulse 72; Resp 18; Pulse Ox 99% on R/A; me1 20:30 BP 153 / 93; Pulse 85; Resp 18; Pulse Ox 99% on R/A; me1 21:15 BP 153 / 95; Pulse 70; Resp 17; Pulse Ox 95% on R/A; me1 18:53 Body Mass Index 38.97 (99.79 kg, 160.02 cm) ko1 Марина Coma Score: 18:56 Eye Response: spontaneous(4). Motor Response: obeys commands(6). Verbal Response: ko1 oriented(5). Total: 15. MDM: 19:04 Patient medically screened. kb 20:52 Differential diagnosis: cardiac arrhythmia, seizure. Data reviewed: vital signs, nurses kb notes. Management of patient was discussed with the following: [place] Yard Drier: Discussed case with Dr. Romero who recommends Keppra 500 mg IV now and 250 mg PO twice daily for home with outpatient follow-up.. Counseling: I had a detailed discussion with the patient and/or guardian regarding the historical points, exam findings, and any diagnostic results supporting the discharge/admit diagnosis, lab results, radiology results, the need for outpatient follow up, a neurologist, to return to the emergency department if symptoms worsen or persist or if there are any questions or concerns that arise at home. 20:54 ED course: Patient now reports chest pain as well. Chest x-ray, EKG and troponin kb ordered. 06/10 19:05 Order name: CBC with Diff; Complete Time: 19:48 kb 06/10 19:05 Order name: Basic Metabolic Panel; Complete Time: 19:56 kb 06/10 19:05 Order name: Urinalysis w/ reflexes; Complete Time: 20:17 kb 06/10 20:41 Order name: Troponin High Sensitivity; Complete Time: 22:25 kb 06/10 19:11 Order name: CT Head Brain wo Cont; Complete Time: 20:47 kb 06/10 20:42 Order name: Chest Single View XRAY; Complete Time: 21:45 kb 06/10 20:41 Order name: EKG; Complete Time: 20:42 kb 06/10 19:05 Order name: IV Start; Complete Time: 19:34 kb 06/10 20:41 Order name: EKG - Nurse/Tech; Complete Time: 21:54 kb EC:52 Rate is 71 beats/min. Rhythm is regular. QRS [place] is Normal. GA interval is normal at kb 138 msec. QRS interval is normal at 96 msec. QT interval is normal at 447 msec. Administered Medications: 19:17 CANCELLED (Duplicate Order): [id number] mg IV at calculated rate once kb 19:58 Drug: NS 0.9% IV 1000 ml IV at 1000 ml once Route: IV; Rate: 1000 ml; Site: right jb4 antecubital; 19:58 Drug: Keppra IV 500 mg IV at calculated rate once Route: IV; Rate: calculated rate; jb4 Site: right antecubital; 22:35 Drug: Ketorolac IVP 15 mg IVP once Route: IVP; Site: right antecubital; jb4 Disposition Summary: 06/10/23 22:26 Discharge Ordered Notes: Location: Home(06/10/23 22:26) kb Condition: Stable(06/10/23 22:26) kb Diagnosis - Other seizures(06/10/23 22:26) kb Followup: kb - With: Emergency Department - When: As needed - Reason: Worsening of condition Followup: kb - With: Private Physician - When: 2 - 3 days - Reason: Recheck today's complaints, Continuance of care, Re-evaluation by your physician Discharge Instructions: - Discharge Summary Sheet kb - Seizure, Adult, [id number] kb Forms: - Medication Reconciliation Form kb - Thank You Letter kb - Antibiotic Education kb - Prescription Opioid Use kb - Patient Portal Instructions kb - Leadership Thank You Letter kb Prescriptions: - Keppra 250 mg Oral tablet - take 1 tablet ORAL route 2 times per day; 60 tablet; Refills: 0, Product kb Selection Permitted Signatures: Dispatcher [employer] EDMartha Arechiga FNP-C FNP-Ckb Bryson, James RN RN jb4 Madelaine Horne RN RN ko1 Corrections: (The following items were deleted from the chart) 19:17 19:16 Keppra IV 1000 mg IV at calculated rate once ordered. kb kb : 20: Home kb kb : 20: Stable kb kb 20: Other seizures kb kb
--- NOTE | 2023-06-10 20:45 | RAD REPORT ---
EXAM DESCRIPTION: CT - Head Brain Wo Cont - 06/10/2023 7:51 pm CLINICAL HISTORY: SEIZURE COMPARISON: Head Brain Wo Cont dated 04/02/2023; HEAD BRAIN W O CONTRAST dated 11/28/2013 TECHNIQUE: Noncontrast head CT images were obtained without IV contrast. Multiplanar reformats were generated and reviewed. All CT scans are performed using dose optimization technique as appropriate and may include automated exposure control or mA/KV adjustment according to patient size. FINDINGS: No intracranial hemorrhage, mass, or edema. Midline structures are unremarkable. Normal ventricular caliber for age. Purcell-white matter differentiation is preserved, without evidence of acute infarct. No abnormal extra- axial fluid collections. Mastoid air cells and visualized portions of the paranasal sinuses are clear. No acute bony findings. IMPRESSION: No evidence of an acute intracranial process.
--- NOTE | 2023-06-10 21:41 | RAD REPORT ---
EXAM DESCRIPTION: [place] Single View06/10/2023 8:56 pm CLINICAL HISTORY: CHEST PAIN COMPARISON: Chest Single View dated 04/02/2023; Chest Single View dated 12/03/2017 TECHNIQUE: Portable AP view of the chest. FINDINGS: The lungs are clear. No pneumothorax or effusion. The cardiomediastinal contours are unre markable. Stable radiodensities projecting over the lower chest wall more so on the left. IMPRESSION: No acute cardiopulmonary process.
--- NOTE | 2023-06-11 13:22 | EKG ---
Test Date: 2023-06-10 Test Time: 21:14:52 Tipple Tender: LEESA MEASUREMENT RESULTS: Intervals: Rate: 71 VA: 138 QRSD: 96 QT: 412 QTc: 447 Jay: P: 41 VA: 138 QRS: 32 T: 51 INTERPRETIVE STATEMENTS: Normal sinus rhythm Normal ECG Compared to ECG 04/02/2023 22:13:09 Prolonged QT interval no longer present Electronically Signed On 06-11-23 13:21:35 MOLD MOVER by Osmin Acuna
== END ==
LOC: ER 18:45
DX: R56.9 Unspecified convulsions (principal); R07.9 Chest pain, unspecified; R51.9 Headache, unspecified
CPT/HCPCS: 85025; 81001; 80048; 36415; 84484; 70450; 71045; J1953; J7030; 93005

== ENCOUNTER 2024-05-23 13:00 | Day surgery (SDC) | payer BC ==
--- NOTE | 2024-05-20 09:17 | RAD REPORT ---
EXAMINATION: TWO VIEW CHEST XR CLINICAL INDICATION: heart cath pre op TECHNIQUE: 2 views of the chest was performed. COMPARISON: 06/10/2023 FINDINGS: The lungs are well inflated and clear. The heart is upper limit of normal in size. No displaced fract ures evident. IMPRESSION: No acute or significant abnormalities.
[2024-05-20 09:34] LABS: Absolute Eosinophils 0.3 K/uL (0-0.5); Absolute Lymphocytes (CBC) 1.9 K/uL (0.7-4.9); Absolute Monocytes 0.3 K/uL (0.1-1.3); Absolute Neutrophil 2.6 K/uL (1.8-8.0); Basophils % 0.9 % (0-1.3); Hematocrit 34.5 % (36.0-45.0); Hemoglobin 11.2 g/dL (12.0-15.0); Lymphocytes % 37.5 % (15.3-44.8); MCH 26.7 pg (27.0-35.0); MCHC 32.5 g/dL (32.0-36.0); MCV 82.1 fL (80-100); MPV 9.4 fL (7.6-11.3); Monocytes % 5.6 % (3.3-12.3); Nucleated Red Blood Cells % 0.1 % (0-0); Platelets 308 thou/uL (152-406); RBC Red Blood Cell Count 4.21 M/uL (3.86-4.86); Red Cell Distribution Width 18.5 % (12.1-15.2)
[2024-05-20 09:42] LABS: Anion Gap 6.6 mEq/L (5.0-15.0); Potassium 3.6 mEq/L (3.5-5.1)
[2024-05-20 09:45] LABS: PTT, Activated Partial Thromb 29.4 SECONDS (24.3-36.9); Protime INR 1.14
[2024-05-23] MEDS ORDERED: NA CHLORIDE 0.9% 500 ML ONE (13:07)
[2024-05-23] MEDS ORDERED: HEPARIN 10,000 UNIT/10 ML VIAL IV ONE (15:43)
[2024-05-23] MEDS ORDERED: VERAPAMIL HCL 10 MG/4 ML VIAL IV ONE (15:43)
[2024-05-23] MEDS ORDERED: LIDOCAINE 1% 20 ML MDV ONE (15:43)
[2024-05-23] MEDS ORDERED: HEPA 1000U/500MLS 2,000 UNIT/1,000 ML BAG IV ONE (15:43)
[2024-05-23] MEDS ORDERED: ATROPINE SULF 1 MG/10 ML SYR IV ONE (15:44)
[2024-05-23] MEDS ORDERED: TICAGRELOR 90 MG TABLET PO ONE (15:44)
[2024-05-23] MEDS ORDERED: HEPARIN 5000 UNIT/ML 1 ML VIAL ONE (15:44)
[2024-05-23] MEDS ORDERED: ASPIRIN 325 MG TAB ONE (15:44)
[2024-05-23] MEDS ORDERED: MIDAZOLAM HCL 2 MG/2 ML INJ ONE (15:44)
[2024-05-23] MEDS ORDERED: CLOPIDOGREL 75 MG TABLET ONE (15:44)
[2024-05-23] MEDS ORDERED: NALOXONE 0.4 MG/ML VIAL ONE (15:45)
[2024-05-23] MEDS ORDERED: FLUMAZENIL 0.1 MG/ML (5 mL VIAL) IV ONE (15:45)
[2024-05-23] MEDS ORDERED: FENTANYL CITR 100 MCG/2 ML ONE (15:45)
[2024-05-23 18:40] VITALS: O2SAT 98
[2024-05-23 19:07] VITALS: BP 156/91
--- NOTE | 2024-05-26 13:15 | EKG ---
Test Date: 2024-05-20 Test Time: 09:53:12 Elocution Teacher: DEE MEASUREMENT RESULTS: Intervals: Rate: 75 WI: 146 QRSD: 98 QT: 410 QTc: 457 Kodak: P: 39 WI: 146 QRS: -10 T: 44 INTERPRETIVE STATEMENTS: Normal sinus rhythm Cannot rule out Anterior infarct, age undetermined Abnormal ECG Compared to ECG 06/10/2023 21:14:52 Myocardial infarct finding now present Electronically Signed On 05-26-24 13:04:28 ENDS BREAKAGE CLERK by Skip Lowe
--- NOTE | 2024-05-31 00:49 | OP ---
Date of Procedure: 05/23/2024 Surgeon: MAREK LANGE Procedure Performed: 1.Selective coronary angiogram. 2.Left heart catheterization. 3.Right heart catheterization. Indications: 1.Unstable angina. 2.Significant shortness of breath on minimal exertion. Access: 1.Right radial artery 6-Lithuanian closed with TR band. 2.Right IJ 7-Lithuanian closed with manual pressure. Complications: None. Bleeding: Less than 50 mL. Anesthesia: Total sedation time was 1 hour. Used fentanyl and Versed. Description Of Procedure: After risks, benefits, and alternatives were explained, the patient agreed to procedure and signed informed consent. [facility] and draped in sterile fashion. Then I accessed right radial artery using pediatric m icropuncture kit and ultrasound guidance, and placed 6-Lithuanian slender sheath and accessed right IJ us ing micropuncture kit ultrasound guidance, and placed 7-Lithuanian pinnacle sheath and took a 7-Lithuanian ba lloon-tipped Ingalls catheter through the IJ access into the right atrium, right ventricle, pulmonary ar sue and wedge, obtained waveform and pressure, altered cardiac output by thermodilutional method. Cielo corrigan removed the Ingalls and then took 5-Lithuanian Hampton 4 catheter through the radial access over J-wire in to the aortic root across the aortic valve. Pullback did not record any significant gradient. Then engaged left main, took standard views and then the RCA, took standard views and then removed the cat heter and the sheath, placed TR band with good hemostasis. The IJ sheath was removed. Manual pressu re was used for closure with good hemostasis. Findings: Coronary angiogram: 1.Left main is normal. 2.LAD; proximal 30%, mid 20%. Rest of the LAD is normal, normal diagonal branches. 3.Left circumflex codominant circulation normal. 4.RCA; codominant circulation with mid 20% stenosis and normal PDA and PLB. 5.Elevated LVEDP at 23 mmHg. Right heart cath numbers: RA pressure is 14. RV pressure is 46/8, mean of 8, PA pressure was 37/21, mean of 27, and pulmonary wedge pressure was 19. LVEDP was 23 mmHg. Conclusions: 1.Mild nonobstructive coronary artery disease. 2.Elevated filling pressure. Recommendations: Diuretics and blood pressure control and medical management of coronary artery dise ase. SR/MODL Voice ID: [id number] Report ID: [id number]
== END 2024-05-23 19:18 | disposition home or self-care (01) ==
LOC: CCL 13:00
PROVIDERS: ATTEND Internal Medicine
DX: I25.110 Atherosclerotic heart disease of native coronary artery with unstable angina pectoris (principal); I34.0 Nonrheumatic mitral (valve) insufficiency; I35.1 Nonrheumatic aortic (valve) insufficiency; I10 Essential (primary) hypertension; Z87.891 Personal history of nicotine dependence; Z79.899 Other long term (current) drug therapy
CPT/HCPCS: 93005; 85025; 80048; 36415; 85610; 85730; 71046; 93460; 76937; C1893; Q9966; J1644; J2003; J2250; J3010; J7040; 99152; J0461; J2310

== ENCOUNTER 2024-08-12 19:36 | Emergency (ER) | payer BC ==
--- OUTSIDE RECORDS SUMMARY | 2024-08-12 19:38 | XMS REPORT | Clinical Summary ---
Author Name Unknown Organization [facility] Address [address] [place] [address] Care Team Providers Care Glass Driller Name Role Phone Cherelle Morton MD Unavailable Unavailable Eitan Heredia MD Primary Care Provid er Allergies No known active allergies Medications gabapentin (NEURONTIN) 600 mg tablet Take 1 tablet by mouth daily. 9 Active topiramate (Topamax) 25 mg tablet Take 2 tablets by mouth daily. 8 Active SUMAtriptan (IMITREX) 100 mg tablet Take 1 tablet by mouth as needed. 0 Active ustekinumab (STELARA) 90 mg/mL injection Inject 90 mg under the skin every 3 (three) months. Every 8 weeks Active AIMOVIG AUTOINJECTOR 70 mg/mL atIn Inject 70 mg as directed every 30 (thirty) days. 0 Active ALPRAZolam (Xanax) 0.5 mg tabletIndications :Fear of other medical care Take 1 tablet (0.5 mg) by mouth See Admin Instructions. Take when directed by MRI staff. May repeat x 1 dose, if needed. 2 tablet 0 Active Active Problems Problem Noted Date Diagnosed Date Migraine Upzcgkj-Ocyzv-Wudwd disease Crohn's disease Surgical History Surgery Date Site/Laterality Comments HERNIA REPAIR SECTION, LOW TRANSVERSE x2 LAPAROSCOPIC CHOLECYSTECOMY CARPAL TUNNEL RELEASE Bilateral ANUS SURGERY PARATHYROIDECTOMY Medical History Medical History Date Comments Crohn's disease Qpwiure-Qbfnk-Zwvrm disease Migraine Family History Medical History Relation Name Comments Bladder Cancer Father Breast cancer Mother Relation Name Status Comments Father Mother Social History Tobacco Use Types Packs/Day Years Used Date Smoking Tobacco: Never Smokeless Tobacco: Never Alcohol Use Standard Drinks/Week Comments Not Currently 0 (1 standard drink = 0.6 oz pur e alcohol) Comments No Sex and Gender Information Value Date Recorded Sex Assigned at Not on file Legal Sex Female 7:29 AM CDT Gender Identity Not on file Sexual Orientation Not on file Obstetrics History Para Term AB IAB SAB Ectopic Multiple Livin g Live Births 2 2 2 Date Outcome GA Total Labor Labor/2nd/3rd Weight Sex Type Anes PTL Sonia A1 A5 Name Clin Para Para Comments Menarche 9 Parity 34 OBC: over 10 years. Hormonal Therapy none Last Pap over 3 years ago. Normal Abnormal Pap none. Last Ny 08/20/2019. BIRADS 2 Last Colon 2018. Polyps benign Breast Bx none Plan of Treatment Health Maintenance Due Date Last Done Comments COVID-19 Vaccine (2023-2 5 season) 2024 Influenza Vaccine (#1) 2024 Pneumococcal Vaccine Aged Out No long er eligible based on patient's age to complete this topic Insurance PPO POS PPO POS Care Teams Glass Driller Relationship Specialty Start Date End Date Cherelle Morton MD PCP - External Primary Care Provider Internal Medicine 09/13/19 Eitan Heredia MD [address] [place] [address] [email or web address] PCP - General Cancer Prevention 09/16/19
[2024-08-12] MEDS ORDERED: LEVETIRACETAM 500 MG/5 ML VIAL IV ONE (21:19)
[2024-08-12] MEDS ORDERED: ONDANSETRON 4 MG/2 ML VIAL ONE (21:19)
[2024-08-12] MEDS ORDERED: NA CHLORIDE 0.9% 1,000 ML ONE ×2 (21:20→23:50)
[2024-08-12] MEDS ORDERED: NA CHLORIDE 0.9% 100 ML ONE (21:20)
[2024-08-12] MEDS ORDERED: MORPHINE 4 MG/ML SYR ONE (21:20)
[2024-08-12 21:28] LABS: Absolute Eosinophils 0.1 K/uL (0-0.5); Absolute Lymphocytes (CBC) 1.7 K/uL (0.7-4.9); Absolute Monocytes 0.8 K/uL (0.1-1.3); Absolute Neutrophil 11.3 K/uL (1.8-8.0); Basophils % 0.3 % (0-1.3); Eosinophils % 0.4 % (0-4.4); Hematocrit 43.6 % (36.0-45.0); Hemoglobin 14.8 g/dL (12.0-15.0); Lymphocytes % 12.2 % (15.3-44.8); MCH 27.7 pg (27.0-35.0); MCHC 33.9 g/dL (32.0-36.0); MCV 81.9 fL (80-100); MPV 9.1 fL (7.6-11.3); Monocytes % 5.4 % (3.3-12.3); Neutrophils % 81.7 % (41.7-73.7); Platelets 453 thou/uL (152-406); RBC Red Blood Cell Count 5.32 M/uL (3.86-4.86); Red Cell Distribution Width 16.7 % (12.1-15.2)
[2024-08-12 21:43] LABS: ALT/SGPT 16 U/L (13-56); Albumin 4.3 g/dL (3.4-5.0); Alkaline Phosphatase 85 U/L (45-117); Anion Gap 15.5 mEq/L (5.0-15.0); BUN Blood Urea Nitrogen 16 mg/dL (7-18); Bicarbonate 23 mEq/L (21-32); Bilirubin Total 0.8 mg/dL (0.2-1.0); Globulin 4.1 g/dL (2.3-3.5); Glomerular Filtration Rate 73 ml/min (=/>90); Glucose Level 116 mg/dL (74-106); Lipase 44 U/L (13-75); Protein, Total 8.4 g/dL (6.4-8.2); Sodium Level 136 mEq/L (136-145)
[2024-08-12 21:44] LABS: AST/SGOT < 10 U/L (15-37)
[2024-08-12 21:46] LABS: Potassium 2.5 mEq/L (3.5-5.1)
[2024-08-12] MEDS ORDERED: KCL 20 MEQ/100 mL IVPB 100 ML IV ONE (22:16)
[2024-08-12] MEDS ORDERED: POTASSIUM 25 MEQ EFFERV TAB ONE (22:16)
[2024-08-12] MEDS ORDERED: PROMETHAZINE INJ 25 MG/ML AMP ONE (23:53)
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
--- NOTE | 2024-08-13 02:44 | ER ---
Nurse's Notes [facility] Name: Vashti Colin Age: 43 yrs Sex: Female : 1980 Arrival Date: 08/12/2024 Time: 19:36 Bed 11 Private MD: Diagnosis: Colitis, dehydration, vomiting, hypokalemia Presentation: 08/12 20:57 Chief complaint: Patient states: possible 2 seizures 2 hours ago. Coronavirus screen: kj2 Client denies travel out of the [place] in the last 14 days. Ebola Screen: No symptoms or risks identified at this time. Initial Sepsis Screen: Does the patient meet any 2 criteria? No. Patient's initial sepsis screen is negative. Does the patient have a suspected source of infection? No. Patient's initial sepsis screen is negative. Risk Assessment: Do you want to hurt yourself or someone else?. Onset of symptoms was August 12, 2024. 20:57 Method Of Arrival: Ambulatory kj2 20:57 Acuity: MELANI 3 kj2 Triage Assessment: 20:59 General: Appears in no apparent distress. Behavior is cooperative. Pain: Complains of kj2 pain in abdomen Pain currently is 6 out of 10 on a pain scale. Neuro: Level of Consciousness is awake, alert, Oriented to person, place, time, situation. Historical: - PMHx: 20:59 crohns disease; insomnia (Migraines); Migraines; Seizure; kj2 - PSHx: 20:59 Cholecystectomy; parathyroid tumor removal; kj2 - Immunization history:: Adult Immunizations unknown. - Infectious Disease History:: Denies. - Social history:: Smoking status: unknown. Screenin:00 [facility] ED Fall Risk Assessment (Adult) History of falling in the last 3 months, kj2 including since admission No falls in past 3 months (0 pts) Confusion or Disorientation No (0 pts) Intoxicated or Sedated No (0 pts) Impaired Gait No (0 pts) Mobility Assist Device Used No (0 pt) Altered Elimination No (0 pt) Score/Fall Risk Level 0 - 2 = Low Risk Maintained a safe environment, Hourly rounding (assess needs \T\ fall precautionary measures) done. Abuse screen: Denies threats or abuse. Denies injuries from another. Nutritional screening: No deficits noted. Tuberculosis screening: No symptoms or risk factors identified. Assessment: 21:01 General: see triage assessment. kj2 22:00 Reassessment: Patient appears in no apparent distress at this time. Patient and/or kj2 family updated on plan of care and expected duration. Pain level reassessed. Patient is alert, oriented x 3, equal unlabored respirations, skin warm/dry/pink. 23:12 Reassessment: Patient appears in no apparent distress at this time. Patient and/or kj2 family updated on plan of care and expected duration. Pain level reassessed. Patient is alert, oriented x 3, equal unlabored respirations, skin warm/dry/pink. 23:55 Reassessment: Patient appears in no apparent distress at this time. Patient and/or kj2 family updated on plan of care and expected duration. Pain level reassessed. Patient is alert, oriented x 3, equal unlabored respirations, skin warm/dry/pink. 08/13 03:06 Reassessment: Patient appears in no apparent distress at this time. Patient and/or lg3 family updated on plan of care and expected duration. Pain level reassessed. Patient is alert, oriented x 3, equal unlabored respirations, skin warm/dry/pink. Patient is alert/active/playful, equal unlabored respirations, skin warm/dry/pink. Patient states feeling better. Patient states symptoms have improved. Vital Signs: 08/12 20:57 BP 105 / 72; Pulse 70; Resp 20; Temp 98.2; Pulse Ox 100% on R/A; Weight 86.18 kg; kj2 Height 5 ft. 2 in. ; 22:05 BP 165 / 101; Pulse 66; Resp 18; Pulse Ox 100% on R/A; kj2 23:05 BP 165 / 96; Pulse 64; Resp 18; Pulse Ox 100% ; kj2 08/13 00:28 BP 161 / 80; Pulse 61; Resp 20; Pulse Ox 98% on R/A; kj2 03:06 BP 158 / 87; Pulse 68; Resp 19 S; Pulse Ox 100% on R/A; lg3 08/12 20:57 Body Mass Index 34.75 (86.18 kg, 157.48 cm) kj2 Daykin Coma Score: 08/12 21:15 Eye Response: spontaneous(4). Motor Response: obeys commands(6). Verbal Response: kj2 oriented(5). Total: 15. ED Course: 19:37 Patient arrived in ED. rg4 20:18 Ezra Myles MD is Attending Physician. sp3 20:45 Inserted saline lock: 20 gauge in right antecubital area, using aseptic technique. kj2 Blood collected. Flushed with 10 mL NS. 20:52 Hayley Lobato, RN is Primary Nurse. kj2 20:59 Triage completed. kj2 21:01 Arm band placed on Patient placed in an exam room. kj2 21:01 Patient has correct armband on for positive identification. Bed in low position. Call kj2 light in reach. Adult w/ patient. Provided Education on: call light. 08/13 00:06 CT Abd/Pelvis - IV Contrast Only In Process Unspecified. EDMS 00:39 Report given to VANITA Melvin. kj2 03:06 No provider procedures requiring assistance completed. IV discontinued, intact, lg3 bleeding controlled, No redness/swelling at site. Pressure dressing applied. Administered Medications: 08/12 21:29 Drug: Keppra IV 1000 mg IV at calculated rate once Route: IV; Rate: calculated rate; kj2 Site: right antecubital; 08/13 03:08 Follow up: Response: No adverse reaction; IV Status: Completed infusion; IV Intake: [id number] 08/12 21:30 Drug: Ondansetron IVP 4 mg IVP once; over 2 minutes Route: IVP; Site: right antecubital;kj2 08/13 03:09 Follow up: Response: No adverse reaction lg3 08/12 21:30 Drug: morphine IVP or IV 4 mg IVP once over 4 mins Route: IVP; Infused Over: 4 mins; kj2 Site: right antecubital; 08/13 03:09 Follow up: Response: No adverse reaction lg3 08/12 21:30 Drug: NS 0.9% IV 1000 ml IV at 1 bolus Per protocol; to be given as a bolus over 60 kj2 minutes Route: IV; Rate: 1 bolus; Site: right antecubital; 08/13 03:09 Follow up: Response: No adverse reaction; IV Status: Completed infusion; IV Intake: lg3 1000ml 08/12 22:45 Drug: Potassium PO Effervescent Tablet 50 mEq PO once; dissolve in 4 ounces of water or kj2 juice Route: PO; 04/12 03:09 Follow up: Response: No adverse reaction lg3 08/12 22:45 Drug: Potassium Chloride IV 20 mEq IV at calculated rate once; administer over 1-2 kj2 hours Route: IV; Rate: calculated rate; Site: right antecubital; 08/13 03:08 Follow up: Response: No adverse reaction; IV Status: Completed infusion; IV Intake: lg3 100ml 08/12 23:56 Drug: Promethazine IVP 12.5 mg IVP once Route: IVP; Site: right antecubital; kj2 08/13 03:08 Follow up: Response: No adverse reaction; Marked relief of symptoms lg3 00:29 Drug: NS 0.9% IV 1000 ml IV at 1000 ml once; to be given as a bolus over 60 minutes kj2 Route: IV; Rate: 1000 ml; Site: right antecubital; 03:08 Follow up: Response: No adverse reaction; IV Status: Completed infusion; IV Intake: lg3 1000ml Medication: 08/12 21:15 VIS not applicable for this client. kj2 Intake: 08/13 03:08 IV: 1000ml; Total: 1000ml. lg3 03:08 IV: 100ml; Total: 1100ml. lg3 03:08 IV: 50ml; Total: 1150ml. lg3 03:09 IV: 1000ml; Total: 2150ml. lg3 Outcome: 02:44 Discharge ordered by . sp3 03:06 Discharged to home ambulatory, with significant other, lg3 03:06 Condition: stable 03:06 Discharge instructions given to patient, Instructed on discharge instructions, follow up and referral plans. medication usage, Demonstrated understanding of instructions, follow-up care, medications, Prescriptions given X 4, 03:10 Patient left the ED. lg3 Signatures: Dispatcher [employer] Kortney Kumar rg4 Heydi Carmichael RN RN lg3 Ezra Myles MD MD sp3 Hayley Lobato RN RN kj2
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
[2024-08-13 03:45] VITALS: TEMP 98.2
[2024-08-13 03:49] VITALS: BP 158/87; O2SAT 100
== END 2024-08-13 03:10 | disposition home or self-care (01) ==
LOC: ER 19:36
DX: K52.9 Noninfective gastroenteritis and colitis, unspecified (principal); E86.0 Dehydration; E87.6 Hypokalemia
CPT/HCPCS: 96365; 85025; 36415; 83605; 83690; 80053; 74177; 96375; 99284; 96366; Q9967; J2550; J3480; J1953; J2405; J7030 ×2